=== PATIENT | female | born 1935 | race Caucasian/White ===

== ENCOUNTER 2017-09-16 12:04 | Inpatient (IN) | payer BC ==
[~2017-09-16] VITALS: Ht 165.1 cm; Wt 76.4 kg
--- NOTE | 2017-09-16 12:46 | PHYS DOC ---
Adult General Chief Complaint Chief Complaint: SHORTNESS OF BREATH HPI HPI Patient is a 82 year old F who presents with increased swelling and shortness of breath. Patient has not been to a friend doctor for quite some time and was at Dr. Torres's office today and sent over the emergency room for increase fluid on her lungs. Patient has significant lower extremity swelling with increased shortness of breath and altered breathing. Patient denies any fevers. Patient has not breath of cough. Patient denies any chest pain. Patient has no other complaints. Review of Systems Review of Systems GEN: Denies fevers, chills, sweats HEENT: Denies blurred vision, sore throat CV: Denies chest pain RESP: Shortness of breath GI: Denies n/v/d NEURO: Denies confusion, dizziness MSK: Leg swelling All other systems were reviewed and found to be within normal limits, except as documented in this note. Current Medications Current Medications Current Medications Medications (Trade) Dose Ordered Sig/Kerrie Start Time Stop Time Status Last Admin Dose Admin Furosemide (Lasix) 80 mg 1X ONCE 09/16/17 14:00 09/16/17 14:01 Allergies Allergies Allergies Coded Allergies Type Severity Reaction Last Updated Verified No Known Drug Allergies 09/16/17 No Physical Exam Physical Exam GEN.: mod distress. Alert and oriented. HEENT: Head is normocephalic, atraumatic NECK: Supple. LUNGS: Decreased breath sounds bilaterally, tachypnea. HEART: RRR, S1, S2 present. Peripheral pulses intact ABDOMEN: Soft, nontender. Positive bowel sounds. EXTREMITIES: Without any cyanosis, +2 pitting edema to lower extremity bilaterally NEUROLOGIC: Normal speech, normal tone PSYCHIATRIC: Normal affect, normal mood. SKIN: No ulcerations Current Patient Data Lab Values Laboratory Tests Test 09/16/17 12:50 09/16/17 13:24 Lactic Acid Level 2.8 mmol/L (0.4-2.0) H Troponin I Quantitative 0.038 ng/mL (0.000-0.055) XR-Cqv-A-Type Natriuretic Peptide 1756 pg/mL (0-449) H White Blood Count 14.5 x10^3/uL (4.0-11.0) H Red Blood Count 3.38 x10^6/uL (3.50-5.40) L Hemoglobin 7.4 g/dL (12.0-15.5) L Hematocrit 24.9 % (36.0-47.0) L Mean Corpuscular Volume 74 fL (79-100) L Mean Corpuscular Hemoglobin 22 pg (25-35) L Mean Corpuscular Hemoglobin Concent 30 g/dL (31-37) L Red Cell Distribution Width 17.5 % (11.5-14.5) H Platelet Count 315 x10^3/uL (140-400) Neutrophils (%) (Auto) 84 % (31-73) H Lymphocytes (%) (Auto) 8 % (24-48) L Monocytes (%) (Auto) 7 % (0-9) Eosinophils (%) (Auto) 1 % (0-3) Basophils (%) (Auto) 1 % (0-3) Neutrophils # (Auto) 12.1 x10^3uL (1.8-7.7) H Lymphocytes # (Auto) 1.2 x10^3/uL (1.0-4.8) Monocytes # (Auto) 1.0 x10^3/uL (0.0-1.1) Eosinophils # (Auto) 0.1 x10^3/uL (0.0-0.7) Basophils # (Auto) 0.1 x10^3/uL (0.0-0.2) Platelet Estimate Pending Sodium Level 142 mmol/L (136-145) Potassium Level 3.5 mmol/L (3.5-5.1) Chloride Level 104 mmol/L (98-107) Carbon Dioxide Level 28 mmol/L (21-32) Anion Gap 10 (6-14) Blood Urea Nitrogen 25 mg/dL (7-20) H Creatinine 1.3 mg/dL (0.6-1.0) H Estimated GFR (Cockcroft-Gault) 39.1 BUN/Creatinine Ratio 19 (6-20) Glucose Level 166 mg/dL (70-99) H Calcium Level 8.7 mg/dL (8.5-10.1) Total Bilirubin Pending Aspartate Amino Transferase (AST) Pending Alanine Aminotransferase (ALT) Pending Alkaline Phosphatase Pending Total Protein Pending Albumin Pending Albumin/Globulin Ratio Pending Lipase Pending Laboratory Tests 09/16/17 13:24 Laboratory Tests 09/16/17 13:24 EKG EKG 1224: EKG shows normal sinus rhythm rate of 85 no STEMI[] Radiology/Procedures Radiology/Procedures CXR: Impression: Findings most suggestive of CHF with right greater than left pleural effusions.[] Course & Med Decision Making Course & Med Decision Making Pertinent Labs and Imaging studies reviewed. (See chart for details) ED course: Patient was seen and examined emergency room cardiac workup was ordered along with a BNP Patient was updated on lab results and plan to admit for acute CHF exacerbation Pt was typed and screened with a hematoma 7.2 Patient was given 80 of Lasix IV 1350: Discussed CC/HP/PMH with Dr. Wihteside and recommends admit [] MDM: After reviewing the chart, CC/HPI/PMH, physical exam, [lab results], [ radiological results], I believe the patient has acute CHF exacerbation record admission to the hospital for IV Lasix. Patient has anemia with no active bleeding and does not need an emergent blood transfusion at this time. [] Dragon Disclaimer Dragon Disclaimer This electronic medical record was generated, in whole or in part, using a voice recognition dictation system. Departure Departure Impression: Primary Impression: CHF exacerbation Additional Impressions: Anemia Pleural effusion Disposition: ADMITTED INPATIENT Admitting Physician: Lynne Whiteside Condition: GUARDED Referrals: UNKNOWN PCP NAME (PCP) Problem Qualifiers TANI FLORES DO Sep 16, 2017 12:46
--- NOTE | 2017-09-16 13:03 | EKG ---
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 Electronically Signed On 09-16-2017 17:05:34 MAINTENANCE SUPERVISOR 2ND SHIFT by Al Thomson MD
--- NOTE | 2017-09-16 13:21 | RAD ---
Indication: Short of air. Technique: Upright portable chest radiograph was obtained and compared to a study from June 20, 2011. Findings: There is blunting of the costophrenic sulci, greater on the right. There is interstitial prominence and cephalization of the pulmonary vasculature. Heart is upper limits of normal in size. There is atheromatous disease in the thoracic aorta. Leads overlie the patient. Impression: Findings most suggestive of CHF with right greater than left pleural effusions.
[2017-09-16 13:31] LABS: BASO # 0.1 x10^3/uL (0.0-0.2); BASO % 1 % (0-3); EOS % 1 % (0-3); HEMATOCRIT 24.9 % (36.0-47.0); HEMOGLOBIN 7.4 g/dL (12.0-15.5); LYMPH # 1.2 x10^3/uL (1.0-4.8); LYMPH % 8 % (24-48); MEAN CORPUSCULAR HEMOGLOBIN 22 pg (25-35); MEAN CORPUSCULAR HGB CONC 30 g/dL (31-37); MEAN CORPUSCULAR VOLUME 74 fL (79-100); MONO % 7 % (0-9); NEUT % 84 % (31-73); PLATELET COUNT 315 x10^3/uL (140-400); RED BLOOD COUNT 3.38 x10^6/uL (3.50-5.40); RED CELL DISTRIBUTION WIDTH 17.5 % (11.5-14.5); WHITE BLOOD COUNT 14.5 x10^3/uL (4.0-11.0)
[2017-09-16 13:40] LABS: CALCIUM 8.7 mg/dL (8.5-10.1); CREATININE 1.3 mg/dL (0.6-1.0); GFR 39.1; POTASSIUM 3.5 mmol/L (3.5-5.1)
[2017-09-16 13:57] LABS: ALBUMIN 3.3 g/dL (3.4-5.0); ALBUMIN/GLOBULIN RATIO 0.8 (1.0-1.7); TOTAL BILIRUBIN 0.4 mg/dL (0.2-1.0); TOTAL PROTEIN 7.3 g/dL (6.4-8.2)
[2017-09-16] MEDS ORDERED: FUROSEMIDE 40 MG/4 ML VIAL. IVP ONE (14:00)
[2017-09-16] MEDS ORDERED: ACETAMINOPHEN 325 MG TABLET. PO PRN (14:00)
[2017-09-16] MEDS ORDERED: ONDANSETRON PF 4 MG/2 ML VIAL. IV PRN (14:00)
[2017-09-16] MEDS ORDERED: NITROGLYCERIN SUBLINGUAL 0.4 MG BOTTLE OF 25. SL PRN (14:00)
[2017-09-16] MEDS ORDERED: fentaNYL PF VIAL 100 MCG/2 ML VIAL IV PRN (14:00)
[2017-09-16 14:10] LABS: BILIRUBIN,URINE NEGATIVE (NEG); GLUCOSE,URINE NEGATIVE (NEG); NITRITE,URINE POSITIVE (NEG); PROTEIN,URINE NEGATIVE (NEG-TRACE); UROBILINOGEN,URINE 0.2 mg/dL (0.2 mg/dL)
[2017-09-16] MEDS ORDERED: diphenhydrAMINE HCL 25 MG CAPSULE PO PRN (14:15)
[2017-09-16 14:18] LABS: % SAT IRON 3 % (15-34); IRON,SERUM 17 ug/dL (50-170)
--- NOTE | 2017-09-16 14:25 | PDOC1 ---
History and Physical Date of Admission Date of Admission DATE: 09/16/17 TIME: 14:17 Identification/Chief Complaint Chief Complaint Shortness of breath, leg swelling Problems: Source Source: Caregiver, Chart review, Patient History of Present Illness History of Present Illness Very pleasant 82-year-old female, who lives at home with , ambulates with assistive device? When necessary, sent by PCP Dr. Torres's office for increasing shortness of breath and leg swelling. Patient has been here in [facility] for many years in the past. No recent records I could identify. Leg swelling is +2-3 pitting edema bilateral , not on any diuretic at home. No known history of CAD CHF. Only takes hypertensive medications and dyslipidemia medications. at bedside is able to provide most of the names of these including Coreg Risperdal losartan and a statin. No known thyroid problems. Patient is a nonsmoker nondrinker. No chest pain she has been fighting shortness of breath and leg swelling for the past month or so. Chest x-ray shows bilateral pleural effusion and congestive heart failure changes. She denies any PND orthopnea may be a poor historian? She has bilateral pitting edema. BNP is 1750+ lactate 2.8 she is coughing some minimal phlegm no fevers at home. WBC 14.5. It is hard to appreciate infiltrates on a very congestive film. Hemoglobin is 7 with a hematocrit of 74. No reports of melena or hematochezia to me. I'm unsure if she had a C scope done as outpatient. She is already 81. Usually colonoscopy routinely stops at age 84. We 'll check a stool occult. Past Medical History Cardiovascular: HTN, Hyperlipidemia Past Surgical History Past Surgical History: No pertinent history Family History Family History: High Cholestrol, Hypertension Social History Smoke: No ALCOHOL: none Drugs: None Current Problem List Problem List Problems Medical Problems: (1) Anemia Status: Acute (2) CHF exacerbation Status: Acute (3) Pleural effusion Status: Acute Problems: Current Medications Current Medications Current Medications Furosemide (Lasix) 80 mg 1X ONCE IVP Last administered on 09/16/17t 14:06; Start 09/16/17 at 14:00; Stop 09/16/17 at 14:01; Status DC Ondansetron HCl (Zofran) 4 mg PRN Q8HRS PRN IV NAUSEA/VOMITING; Start at 14:00; Stop 09/17/17 at 13:59 Fentanyl Citrate (Fentanyl 2ml Vial) 50 mcg PRN Q2HR PRN IV PAIN; Start at 14:00; Stop 09/17/17 at 13:59 Acetaminophen (Tylenol) 650 mg PRN Q4HRS PRN PO FEVER; Start 09/16/17 at 14:00 ; Stop 09/17/17 at 13:59 Nitroglycerin (Nitrostat) 0.4 mg PRN Q5MIN PRN SL CHEST PAIN; Start 09/16/17 at 14:00; Stop 09/17/17 at 13:59 Diphenhydramine HCl (Benadryl) 25 mg PRN QHS PRN PO INSOMNIA; Start 09/16/17 at 14:15 Allergies Allergies: Coded Allergies: No Known Drug Allergies (Unverified , 09/16/17) ROS Review of System Positive for her shortness of breath, leg edema no chest pain A 14 point ROS was completed with the following noted as positive: Other systems reviewed and negative. \CONSTITUTIONAL: No fever or chills EYES: No recent changes SKIN: No rash or itching CARDIOVASCULAR: No chest pain, syncope, palpitations, or edema RESPIRATORY: No SOB or cough GASTROINTESTINAL: No nausea, vomiting or abdominal pain NEUROLOGICAL: No headaches or weakness ENDOCRINE: No cold or heat intolerance GENITOURINARY: No urgency or frequency of urination MUSCULOSKELETAL: No back pain or joint pain LYMPHATICS: No enlarged lymph nodes PSYCHIATRIC: No anxiety or depression Physical Exam Physical Exam Physical Exam General: Alert, Oriented X3, Cooperative, RRR 30 HEENT: Atraumatic, PERRLA Lungs: Normal air movement, Other (wheezy) Heart: S1S2, RRR, no thrills, no gallops, no murmurs Cardiovascular: S1, S2 Abdomen: Normal bowel sounds, Soft, No tenderness, No hepatosplenomegaly, No masses, Other (obese) Rectal Exam: not examined PELVIC: Nml ext genitalia Extremities: No rashes, +3 pitting edema some chronic lichenification, postinflammatory hyperpigmentation, some dressing bilateral lower one third of bilateral legs, pulses full and equal Skin: No rashes, No breakdown, No significant lesion Neuro: Normal gait, Normal speech, Strength at 5/5 X4 ext, Normal tone, Sensation intact, Cranial nerves 3-12 NL, Reflexes 2+ Psych/Mental Status: Mental status NL, Mood NL Vitals Vitals Vital Signs Date Time Temp Pulse Resp B/P (MAP) Pulse Ox O2 Delivery O2 Flow Rate FiO2 09/16/17 14:13 84 28 175/76 (109) 93 Room Air 09/16/17 12:28 99.0 99.0 Labs Labs Laboratory Tests Test 09/16/17 12:50 09/16/17 13:24 Lactic Acid Level 2.8 mmol/L (0.4-2.0) Troponin I Quantitative 0.038 ng/mL (0.000-0.055) XD-Jtn-I-Type Natriuretic Peptide 1756 pg/mL (0-449) White Blood Count 14.5 x10^3/uL (4.0-11.0) Red Blood Count 3.38 x10^6/uL (3.50-5.40) Hemoglobin 7.4 g/dL (12.0-15.5) Hematocrit 24.9 % (36.0-47.0) Mean Corpuscular Volume 74 fL (79-100) Mean Corpuscular Hemoglobin 22 pg (25-35) Mean Corpuscular Hemoglobin Concent 30 g/dL (31-37) Red Cell Distribution Width 17.5 % (11.5-14.5) Platelet Count 315 x10^3/uL (140-400) Neutrophils (%) (Auto) 84 % (31-73) Lymphocytes (%) (Auto) 8 % (24-48) Monocytes (%) (Auto) 7 % (0-9) Eosinophils (%) (Auto) 1 % (0-3) Basophils (%) (Auto) 1 % (0-3) Neutrophils # (Auto) 12.1 x10^3uL (1.8-7.7) Lymphocytes # (Auto) 1.2 x10^3/uL (1.0-4.8) Monocytes # (Auto) 1.0 x10^3/uL (0.0-1.1) Eosinophils # (Auto) 0.1 x10^3/uL (0.0-0.7) Basophils # (Auto) 0.1 x10^3/uL (0.0-0.2) Reticulocyte Count (auto) 3.2 % (0.5-2.5) Sodium Level 142 mmol/L (136-145) Potassium Level 3.5 mmol/L (3.5-5.1) Chloride Level 104 mmol/L (98-107) Carbon Dioxide Level 28 mmol/L (21-32) Anion Gap 10 (6-14) Blood Urea Nitrogen 25 mg/dL (7-20) Creatinine 1.3 mg/dL (0.6-1.0) Estimated GFR (Cockcroft-Gault) 39.1 BUN/Creatinine Ratio 19 (6-20) Glucose Level 166 mg/dL (70-99) Calcium Level 8.7 mg/dL (8.5-10.1) Total Bilirubin 0.4 mg/dL (0.2-1.0) Aspartate Amino Transf (AST/SGOT) 21 U/L (15-37) Alanine Aminotransferase (ALT/SGPT) 39 U/L (14-59) Alkaline Phosphatase 124 U/L (46-116) Total Protein 7.3 g/dL (6.4-8.2) Albumin 3.3 g/dL (3.4-5.0) Albumin/Globulin Ratio 0.8 (1.0-1.7) Lipase 158 U/L (73-393) Laboratory Tests Test 09/16/17 12:50 09/16/17 13:24 Lactic Acid Level 2.8 mmol/L (0.4-2.0) Troponin I Quantitative 0.038 ng/mL (0.000-0.055) XB-Snt-O-Type Natriuretic Peptide 1756 pg/mL (0-449) White Blood Count 14.5 x10^3/uL (4.0-11.0) Red Blood Count 3.38 x10^6/uL (3.50-5.40) Hemoglobin 7.4 g/dL (12.0-15.5) Hematocrit 24.9 % (36.0-47.0) Mean Corpuscular Volume 74 fL (79-100) Mean Corpuscular Hemoglobin 22 pg (25-35) Mean Corpuscular Hemoglobin Concent 30 g/dL (31-37) Red Cell Distribution Width 17.5 % (11.5-14.5) Platelet Count 315 x10^3/uL (140-400) Neutrophils (%) (Auto) 84 % (31-73) Lymphocytes (%) (Auto) 8 % (24-48) Monocytes (%) (Auto) 7 % (0-9) Eosinophils (%) (Auto) 1 % (0-3) Basophils (%) (Auto) 1 % (0-3) Neutrophils # (Auto) 12.1 x10^3uL (1.8-7.7) Lymphocytes # (Auto) 1.2 x10^3/uL (1.0-4.8) Monocytes # (Auto) 1.0 x10^3/uL (0.0-1.1) Eosinophils # (Auto) 0.1 x10^3/uL (0.0-0.7) Basophils # (Auto) 0.1 x10^3/uL (0.0-0.2) Reticulocyte Count (auto) 3.2 % (0.5-2.5) Sodium Level 142 mmol/L (136-145) Potassium Level 3.5 mmol/L (3.5-5.1) Chloride Level 104 mmol/L (98-107) Carbon Dioxide Level 28 mmol/L (21-32) Anion Gap 10 (6-14) Blood Urea Nitrogen 25 mg/dL (7-20) Creatinine 1.3 mg/dL (0.6-1.0) Estimated GFR (Cockcroft-Gault) 39.1 BUN/Creatinine Ratio 19 (6-20) Glucose Level 166 mg/dL (70-99) Calcium Level 8.7 mg/dL (8.5-10.1) Total Bilirubin 0.4 mg/dL (0.2-1.0) Aspartate Amino Transf (AST/SGOT) 21 U/L (15-37) Alanine Aminotransferase (ALT/SGPT) 39 U/L (14-59) Alkaline Phosphatase 124 U/L (46-116) Total Protein 7.3 g/dL (6.4-8.2) Albumin 3.3 g/dL (3.4-5.0) Albumin/Globulin Ratio 0.8 (1.0-1.7) Lipase 158 U/L (73-393) VTE Prophylaxis Ordered VTE Prophylaxis Devices: Yes VTE Pharmacological Prophylaxi: Yes Assessment/Plan Assessment/Plan New-onset CHF Bilateral pitting edema, lymphedema Hypertension Hypertensive urgency present on admission Respiratory failure secondary to CHF Dyslipidemia on a statin AK I on CKD possibly stage III to 4 Microcytic anemia Plan: admit 2 midnights Lasix 80 mg IV push 1 at the emergency room already given. Check UA. Need to monitor monitor creatinine creatinine is 1.4 GFR in the 30s Check TSH PT OT Lymphedema consult Neck stool occult, iron panel since these are microcytic indices; if stool occult positive will involve GI; MIght Need interval chest x-ray about 2 days' time Continue statin and other home medications Awaiting home meds to reconcile Further recommendations pending above Control blood pressure, IVP when necessary if needed PIPO HENSON MD Sep 16, 2017 14:25
[2017-09-16 14:26] LABS: BACTERIA,URINE MANY /HPF (0-FEW); RBC,URINE 0 /HPF (0-2); SQUAMOUS EPITHELIAL CELL,UR OCC /LPF
[2017-09-16 14:43] VITALS: BP 159/68
--- NOTE | 2017-09-16 15:26 | RAD ---
Renal ultrasound, 09/16/2017: History: Acute renal failure The right kidney measures 10.2 cm in length while the left kidney measures 10.0 cm. There is no evidence of hydronephrosis or a renal mass. The renal parenchymal echogenicity is within normal limits. No abnormal perinephric process is seen. Limited views of the partially filled urinary bladder show no abnormality. IMPRESSION: No significant renal abnormality is detected.
[2017-09-16 16:40] LABS: ANISOCYTOSIS MOD; PLT ESTIMATE ADEQUATE (ADEQUATE); POLYCHROMASIA SLIGHT
[2017-09-16 16:41] LABS: HYPOCHROMIA MOD; MICROCYTOSIS MOD; TOXIC GRANULATION SLIGHT
[2017-09-16] MEDS ORDERED: PRAV20TA2 PO (16:51)
[2017-09-16] MEDS ORDERED: CHOL4POW2 PO (16:51)
[2017-09-16] MEDS ORDERED: DONE10TA7 PO (16:51)
[2017-09-16] MEDS ORDERED: RISP0.5T3 PO (16:51)
[2017-09-16] MEDS ORDERED: AMLO2.5T PO (16:51)
[2017-09-16] MEDS ORDERED: LOSA1TAB22 PO (16:51)
[2017-09-16] MEDS ORDERED: CARV12.52 PO (16:51)
--- NOTE | 2017-09-16 17:22 | PDOC ---
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 She also notes that her legs have been more swollen the last few days, despite taking her regular medications. She denies any recent fever, chills, nausea, vomiting, chest pain, back pain, discharge/pain/blood in her urine, any recent stool changes, or any abdominal pain. At baseline she reports that she is able to perform ADL's without significant limitations. Per review with her pharmacy, she has not filled any prescriptions for the last 1 year. PMH: -CHF, per report from patient. - HTN - multiple UTIs PSH: -right knee replacement -angie All: -NKDA Meds: -Unknown. FMH: -sister DM -Father in his 80s, unknown medical hx -Mother HTN, in her 80s SH: -Non-smoker -Alcohol every once in a while -No recreational drug use Objective PE: Vitals: P: 87, BP: 159/68, RR: 20, O2: 93 Gen: resting comfortably in hospital bed, no acute distress HEENT: moist mucus membranes, no LAD, no scleral icterus or conjunctival injection/pallor Heart: regular rhythm with a rate of 87, 2/6 systolic ejection murmur heard best in 2nd ICS RSB and 4th ICS LLSB. No rubs or gallops. No carotid bruits Lungs: diminished air movement with mild end-expiratory wheezes in lung bases Extremities/Skin: +2/4 dp and radial pulses b/l. 3+ pedal and pretibial edema extending up just distal to b/l knees. Erythema anterior legs with stage 2 ulcers present b/l with some tenderness to light palpation. Neuro: CN II-XII grossly intact, nml strength/sensation. EOMs intact DIAGNOSTIC STUDIES; CXR: bilateral edema with r > l, cannot rule out fluid in fissure versus infiltrate. EKG: SR with prior anteroseptal infarct. Labs reviewed, notable for cr of 1.3 and hgb 7.4 Trop negative. Assessment: 1. Acute on chronic HF with diastolic dysfunction, likely due to multiple medical problems as noted. 2. CKD stage 3B 3. Anemia, likely iron deficiency due to occult blood loss, cannot rule out underlying malignancy. 4. UTI 5. HTN 6. Venous insufficiency with open ulcers with erythema. Plan: 1. Patient was given 80 mg furosemide IV in ER, will give another dose of 80 mg furosemide for overnight, monitor I/O's. Will place henry for accurate assessment. 2. Monitor Cr for CKD and continue to treat for HTN (Will use IV hydralazine overnight until her renal function is reassessed in a.m.) 3. Monitor for worsening anemia, consider GI consult 4. UTI per PCP JOHNATHAN CHANDLER MD Sep 16, 2017 17:22
[2017-09-16] MEDS ORDERED: ASPI325T8 PO (17:27)
[2017-09-16] MEDS ORDERED: DIAZ5TAB4 PO (17:27)
[2017-09-16] MEDS ORDERED: hydrALAZINE 20 MG/ML VIAL. IVP PRN (17:30)
[2017-09-16] MEDS: CHOLESTYRAMINE/ASPARTAME 4 GM PACKET PO SCH (17:30)
[2017-09-16] MEDS: risperiDONE 0.25 MG TABLET. PO SCH (17:30)
[2017-09-16] MEDS ORDERED: guaiFENesin DM 200MG/20MG 10 ML SYRUP PO PRN (19:15)
[2017-09-16] MEDS ORDERED: ALBUTEROL SULFATE 2.5 MG/3 ML NEBU. NEB PRN (19:15)
[2017-09-16 19:35] VITALS: BP 155/58
[2017-09-16] MEDS: ATORVASTATIN CALCIUM 10 MG TABLET. PO SCH (20:45)
[2017-09-16] MEDS ORDERED: AMOXICILLIN/K CLAV 875/125MG TABLET. PO SCH (21:00)
[2017-09-16 23:05] VITALS: BP 133/55
[2017-09-17] VITALS (11 sets, daily range): BP systolic 122–159; BP diastolic 44–67
[2017-09-17 02:36] LABS: BASO # 0.1 x10^3/uL (0.0-0.2); BASO % 0 % (0-3); EOS % 1 % (0-3); HEMATOCRIT 22.3 % (36.0-47.0); LYMPH # 1.2 x10^3/uL (1.0-4.8); LYMPH % 9 % (24-48); MEAN CORPUSCULAR HEMOGLOBIN 22 pg (25-35); MEAN CORPUSCULAR HGB CONC 30 g/dL (31-37); MEAN CORPUSCULAR VOLUME 72 fL (79-100); MONO % 9 % (0-9); NEUT % 81 % (31-73); PLATELET COUNT 292 x10^3/uL (140-400); RED CELL DISTRIBUTION WIDTH 18.1 % (11.5-14.5); WHITE BLOOD COUNT 13.1 x10^3/uL (4.0-11.0)
[2017-09-17 02:37] LABS: HEMOGLOBIN 6.7 g/dL (12.0-15.5)
[2017-09-17 02:52] LABS: ALBUMIN 2.9 g/dL (3.4-5.0); ALBUMIN/GLOBULIN RATIO 0.8 (1.0-1.7); CREATININE 1.2 mg/dL (0.6-1.0); GFR 42.9; POTASSIUM 3.2 mmol/L (3.5-5.1); TOTAL BILIRUBIN 0.5 mg/dL (0.2-1.0); TOTAL PROTEIN 6.7 g/dL (6.4-8.2)
[2017-09-17 05:05] LABS: % SAT IRON 2 % (15-34); IRON,SERUM 11 ug/dL (50-170)
[2017-09-17 06:07] LABS: HEMATOCRIT 22.5 % (36.0-47.0); HEMOGLOBIN 7.3 g/dL (12.0-15.5)
--- NOTE | 2017-09-17 08:59 | PDOC ---
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 Microcytic anemia, PEDRITO Sepsis POA Deconditioning GEn weakness Frailty FUll code HIgh fall risk History of Present Illness History of Present Illness lactate still elevated hgb 6.7 IRon studies, compatible with PEDRITO Got 1 upRBC, rpt hgb pending SOme skin breakdown intertriginous areas Leg wounds bialteral lower shins Good UO, on lasix 40 IV K 3,2 today PLAn: KCL 40 x 1 now then daily WOund care Coughing , lebg wounds - augmentin started COnt nebx prn and cough med START FERROUS sulfate qD FOBT GEt gI Dw and RN at bedside WIll need SNU screen HH tmr Vitals Vitals Vital Signs Date Time Temp Pulse Resp B/P (MAP) Pulse Ox O2 Delivery O2 Flow Rate FiO2 09/17/17 08:38 94 Nasal Cannula 2.0 09/17/17 07:55 99.5 87 24 146/59 99.5 Physical Exam General: Alert, Oriented X3, Cooperative Heart: Normal S1, Normal S2, Other (dec BS) Lungs: Crackles Extremities: Other (pitting edema plus 3, leg wounds superficial) Skin: Other (bilateral lower extremity wounds) Labs LABS Laboratory Tests Test 09/16/17 12:50 09/16/17 13:24 09/16/17 14:00 09/16/17 19:10 Lactic Acid Level 2.8 mmol/L (0.4-2.0) 2.6 mmol/L (0.4-2.0) Troponin I Quantitative 0.038 ng/mL (0.000-0.055) OK-Wfk-V-Type Natriuretic Peptide 1756 pg/mL (0-449) White Blood Count 14.5 x10^3/uL (4.0-11.0) Red Blood Count 3.38 x10^6/uL (3.50-5.40) Hemoglobin 7.4 g/dL (12.0-15.5) Hematocrit 24.9 % (36.0-47.0) Mean Corpuscular Volume 74 fL (79-100) Mean Corpuscular Hemoglobin 22 pg (25-35) Mean Corpuscular Hemoglobin Concent 30 g/dL (31-37) Red Cell Distribution Width 17.5 % (11.5-14.5) Platelet Count 315 x10^3/uL (140-400) Neutrophils (%) (Auto) 84 % (31-73) Lymphocytes (%) (Auto) 8 % (24-48) Monocytes (%) (Auto) 7 % (0-9) Eosinophils (%) (Auto) 1 % (0-3) Basophils (%) (Auto) 1 % (0-3) Neutrophils # (Auto) 12.1 x10^3uL (1.8-7.7) Lymphocytes # (Auto) 1.2 x10^3/uL (1.0-4.8) Monocytes # (Auto) 1.0 x10^3/uL (0.0-1.1) Eosinophils # (Auto) 0.1 x10^3/uL (0.0-0.7) Basophils # (Auto) 0.1 x10^3/uL (0.0-0.2) Toxic Granulation Slight Platelet Estimate Adequate (ADEQUATE) Polychromasia Slight Hypochromasia Mod Anisocytosis Mod Microcytosis Mod Reticulocyte Count (auto) 3.2 % (0.5-2.5) Sodium Level 142 mmol/L (136-145) Potassium Level 3.5 mmol/L (3.5-5.1) Chloride Level 104 mmol/L (98-107) Carbon Dioxide Level 28 mmol/L (21-32) Anion Gap 10 (6-14) Blood Urea Nitrogen 25 mg/dL (7-20) Creatinine 1.3 mg/dL (0.6-1.0) Estimated GFR (Cockcroft-Gault) 39.1 BUN/Creatinine Ratio 19 (6-20) Glucose Level 166 mg/dL (70-99) Calcium Level 8.7 mg/dL (8.5-10.1) Iron Level 17 ug/dL (50-170) Total Iron Binding Capacity 531 ug/dL (250-450) Iron Saturation 3 % (15-34) Total Bilirubin 0.4 mg/dL (0.2-1.0) Aspartate Amino Transf (AST/SGOT) 21 U/L (15-37) Alanine Aminotransferase (ALT/SGPT) 39 U/L (14-59) Alkaline Phosphatase 124 U/L (46-116) Total Protein 7.3 g/dL (6.4-8.2) Albumin 3.3 g/dL (3.4-5.0) Albumin/Globulin Ratio 0.8 (1.0-1.7) Lipase 158 U/L (73-393) Thyroid Stimulating Hormone (TSH) 1.663 uIU/mL (0.358-3.74) Urine Color Yellow Urine Clarity Clear Urine pH 6.0 Urine Specific [place] 1.020 Urine Protein Negative mg/dL (NEG-TRACE) Urine Glucose (UA) Negative mg/dL (NEG) Urine Ketones (Stick) Negative mg/dL (NEG) Urine Blood Negative (NEG) Urine Nitrite Positive (NEG) Urine Bilirubin Negative (NEG) Urine Urobilinogen Dipstick 0.2 mg/dL (0.2 mg/dL) Urine Leukocyte Esterase Moderate (NEG) Urine RBC 0 /HPF (0-2) Urine WBC 11-20 /HPF (0-4) Urine Squamous Epithelial Cells Occ /LPF Urine Bacteria Many /HPF (0-FEW) Urine Mucus Slight /LPF Test 09/17/17 02:08 09/17/17 05:30 White Blood Count 13.1 x10^3/uL (4.0-11.0) Red Blood Count 3.10 x10^6/uL (3.50-5.40) Hemoglobin 6.7 g/dL (12.0-15.5) 7.3 g/dL (12.0-15.5) Hematocrit 22.3 % (36.0-47.0) 22.5 % (36.0-47.0) Mean Corpuscular Volume 72 fL (79-100) Mean Corpuscular Hemoglobin 22 pg (25-35) Mean Corpuscular Hemoglobin Concent 30 g/dL (31-37) 32 g/dL (31-37) Red Cell Distribution Width 18.1 % (11.5-14.5) Platelet Count 292 x10^3/uL (140-400) Neutrophils (%) (Auto) 81 % (31-73) Lymphocytes (%) (Auto) 9 % (24-48) Monocytes (%) (Auto) 9 % (0-9) Eosinophils (%) (Auto) 1 % (0-3) Basophils (%) (Auto) 0 % (0-3) Neutrophils # (Auto) 10.6 x10^3uL (1.8-7.7) Lymphocytes # (Auto) 1.2 x10^3/uL (1.0-4.8) Monocytes # (Auto) 1.1 x10^3/uL (0.0-1.1) Eosinophils # (Auto) 0.1 x10^3/uL (0.0-0.7) Basophils # (Auto) 0.1 x10^3/uL (0.0-0.2) Sodium Level 145 mmol/L (136-145) Potassium Level 3.2 mmol/L (3.5-5.1) Chloride Level 105 mmol/L (98-107) Carbon Dioxide Level 30 mmol/L (21-32) Anion Gap 10 (6-14) Blood Urea Nitrogen 26 mg/dL (7-20) Creatinine 1.2 mg/dL (0.6-1.0) Estimated GFR (Cockcroft-Gault) 42.9 BUN/Creatinine Ratio 22 (6-20) Glucose Level 127 mg/dL (70-99) Calcium Level 8.0 mg/dL (8.5-10.1) Iron Level 11 ug/dL (50-170) Total Iron Binding Capacity 479 ug/dL (250-450) Iron Saturation 2 % (15-34) Total Bilirubin 0.5 mg/dL (0.2-1.0) Aspartate Amino Transf (AST/SGOT) 16 U/L (15-37) Alanine Aminotransferase (ALT/SGPT) 30 U/L (14-59) Alkaline Phosphatase 102 U/L (46-116) Troponin I Quantitative 0.081 ng/mL (0.000-0.055) Total Protein 6.7 g/dL (6.4-8.2) Albumin 2.9 g/dL (3.4-5.0) Albumin/Globulin Ratio 0.8 (1.0-1.7) Review of Systems Review of Systems For shortness of breath, generalized weakness A 14 point ROS was completed with the following noted as positive: Other systems reviewed and negative. \CONSTITUTIONAL: No fever or chills EYES: No recent changes SKIN: No rash or itching CARDIOVASCULAR: No chest pain, syncope, palpitations, or edema RESPIRATORY: No SOB or cough GASTROINTESTINAL: No nausea, vomiting or abdominal pain NEUROLOGICAL: No headaches or weakness ENDOCRINE: No cold or heat intolerance GENITOURINARY: No urgency or frequency of urination MUSCULOSKELETAL: No back pain or joint pain LYMPHATICS: No enlarged lymph nodes PSYCHIATRIC: No anxiety or depression Assessment and Plan Assessmemt and Plan Problems Medical Problems: (1) Anemia Status: Acute (2) CHF exacerbation Status: Acute (3) Pleural effusion Status: Acute Problems: Comment Review of Relevant I have reviewed the following items quintin (where applicable) has been applied. Labs Laboratory Tests Test 09/16/17 12:50 09/16/17 13:24 09/16/17 14:00 09/16/17 19:10 Lactic Acid Level 2.8 mmol/L (0.4-2.0) 2.6 mmol/L (0.4-2.0) Troponin I Quantitative 0.038 ng/mL (0.000-0.055) HR-Drd-F-Type Natriuretic Peptide 1756 pg/mL (0-449) White Blood Count 14.5 x10^3/uL (4.0-11.0) Red Blood Count 3.38 x10^6/uL (3.50-5.40) Hemoglobin 7.4 g/dL (12.0-15.5) Hematocrit 24.9 % (36.0-47.0) Mean Corpuscular Volume 74 fL (79-100) Mean Corpuscular Hemoglobin 22 pg (25-35) Mean Corpuscular Hemoglobin Concent 30 g/dL (31-37) Red Cell Distribution Width 17.5 % (11.5-14.5) Platelet Count 315 x10^3/uL (140-400) Neutrophils (%) (Auto) 84 % (31-73) Lymphocytes (%) (Auto) 8 % (24-48) Monocytes (%) (Auto) 7 % (0-9) Eosinophils (%) (Auto) 1 % (0-3) Basophils (%) (Auto) 1 % (0-3) Neutrophils # (Auto) 12.1 x10^3uL (1.8-7.7) Lymphocytes # (Auto) 1.2 x10^3/uL (1.0-4.8) Monocytes # (Auto) 1.0 x10^3/uL (0.0-1.1) Eosinophils # (Auto) 0.1 x10^3/uL (0.0-0.7) Basophils # (Auto) 0.1 x10^3/uL (0.0-0.2) Toxic Granulation Slight Platelet Estimate Adequate (ADEQUATE) Polychromasia Slight Hypochromasia Mod Anisocytosis Mod Microcytosis Mod Reticulocyte Count (auto) 3.2 % (0.5-2.5) Sodium Level 142 mmol/L (136-145) Potassium Level 3.5 mmol/L (3.5-5.1) Chloride Level 104 mmol/L (98-107) Carbon Dioxide Level 28 mmol/L (21-32) Anion Gap 10 (6-14) Blood Urea Nitrogen 25 mg/dL (7-20) Creatinine 1.3 mg/dL (0.6-1.0) Estimated GFR (Cockcroft-Gault) 39.1 BUN/Creatinine Ratio 19 (6-20) Glucose Level 166 mg/dL (70-99) Calcium Level 8.7 mg/dL (8.5-10.1) Iron Level 17 ug/dL (50-170) Total Iron Binding Capacity 531 ug/dL (250-450) Iron Saturation 3 % (15-34) Total Bilirubin 0.4 mg/dL (0.2-1.0) Aspartate Amino Transf (AST/SGOT) 21 U/L (15-37) Alanine Aminotransferase (ALT/SGPT) 39 U/L (14-59) Alkaline Phosphatase 124 U/L (46-116) Total Protein 7.3 g/dL (6.4-8.2) Albumin 3.3 g/dL (3.4-5.0) Albumin/Globulin Ratio 0.8 (1.0-1.7) Lipase 158 U/L (73-393) Thyroid Stimulating Hormone (TSH) 1.663 uIU/mL (0.358-3.74) Urine Color Yellow Urine Clarity Clear Urine pH 6.0 Urine Specific [place] 1.020 Urine Protein Negative mg/dL (NEG-TRACE) Urine Glucose (UA) Negative mg/dL (NEG) Urine Ketones (Stick) Negative mg/dL (NEG) Urine Blood Negative (NEG) Urine Nitrite Positive (NEG) Urine Bilirubin Negative (NEG) Urine Urobilinogen Dipstick 0.2 mg/dL (0.2 mg/dL) Urine Leukocyte Esterase Moderate (NEG) Urine RBC 0 /HPF (0-2) Urine WBC 11-20 /HPF (0-4) Urine Squamous Epithelial Cells Occ /LPF Urine Bacteria Many /HPF (0-FEW) Urine Mucus Slight /LPF Test 09/17/17 02:08 09/17/17 05:30 White Blood Count 13.1 x10^3/uL (4.0-11.0) Red Blood Count 3.10 x10^6/uL (3.50-5.40) Hemoglobin 6.7 g/dL (12.0-15.5) 7.3 g/dL (12.0-15.5) Hematocrit 22.3 % (36.0-47.0) 22.5 % (36.0-47.0) Mean Corpuscular Volume 72 fL (79-100) Mean Corpuscular Hemoglobin 22 pg (25-35) Mean Corpuscular Hemoglobin Concent 30 g/dL (31-37) 32 g/dL (31-37) Red Cell Distribution Width 18.1 % (11.5-14.5) Platelet Count 292 x10^3/uL (140-400) Neutrophils (%) (Auto) 81 % (31-73) Lymphocytes (%) (Auto) 9 % (24-48) Monocytes (%) (Auto) 9 % (0-9) Eosinophils (%) (Auto) 1 % (0-3) Basophils (%) (Auto) 0 % (0-3) Neutrophils # (Auto) 10.6 x10^3uL (1.8-7.7) Lymphocytes # (Auto) 1.2 x10^3/uL (1.0-4.8) Monocytes # (Auto) 1.1 x10^3/uL (0.0-1.1) Eosinophils # (Auto) 0.1 x10^3/uL (0.0-0.7) Basophils # (Auto) 0.1 x10^3/uL (0.0-0.2) Sodium Level 145 mmol/L (136-145) Potassium Level 3.2 mmol/L (3.5-5.1) Chloride Level 105 mmol/L (98-107) Carbon Dioxide Level 30 mmol/L (21-32) Anion Gap 10 (6-14) Blood Urea Nitrogen 26 mg/dL (7-20) Creatinine 1.2 mg/dL (0.6-1.0) Estimated GFR (Cockcroft-Gault) 42.9 BUN/Creatinine Ratio 22 (6-20) Glucose Level 127 mg/dL (70-99) Calcium Level 8.0 mg/dL (8.5-10.1) Iron Level 11 ug/dL (50-170) Total Iron Binding Capacity 479 ug/dL (250-450) Iron Saturation 2 % (15-34) Total Bilirubin 0.5 mg/dL (0.2-1.0) Aspartate Amino Transf (AST/SGOT) 16 U/L (15-37) Alanine Aminotransferase (ALT/SGPT) 30 U/L (14-59) Alkaline Phosphatase 102 U/L (46-116) Troponin I Quantitative 0.081 ng/mL (0.000-0.055) Total Protein 6.7 g/dL (6.4-8.2) Albumin 2.9 g/dL (3.4-5.0) Albumin/Globulin Ratio 0.8 (1.0-1.7) Laboratory Tests Test 09/16/17 12:50 09/16/17 13:24 09/16/17 14:00 09/16/17 19:10 Lactic Acid Level 2.8 mmol/L (0.4-2.0) 2.6 mmol/L (0.4-2.0) Troponin I Quantitative 0.038 ng/mL (0.000-0.055) QJ-Qpc-R-Type Natriuretic Peptide 1756 pg/mL (0-449) White Blood Count 14.5 x10^3/uL (4.0-11.0) Red Blood Count 3.38 x10^6/uL (3.50-5.40) Hemoglobin 7.4 g/dL (12.0-15.5) Hematocrit 24.9 % (36.0-47.0) Mean Corpuscular Volume 74 fL (79-100) Mean Corpuscular Hemoglobin 22 pg (25-35) Mean Corpuscular Hemoglobin Concent 30 g/dL (31-37) Red Cell Distribution Width 17.5 % (11.5-14.5) Platelet Count 315 x10^3/uL (140-400) Neutrophils (%) (Auto) 84 % (31-73) Lymphocytes (%) (Auto) 8 % (24-48) Monocytes (%) (Auto) 7 % (0-9) Eosinophils (%) (Auto) 1 % (0-3) Basophils (%) (Auto) 1 % (0-3) Neutrophils # (Auto) 12.1 x10^3uL (1.8-7.7) Lymphocytes # (Auto) 1.2 x10^3/uL (1.0-4.8) Monocytes # (Auto) 1.0 x10^3/uL (0.0-1.1) Eosinophils # (Auto) 0.1 x10^3/uL (0.0-0.7) Basophils # (Auto) 0.1 x10^3/uL (0.0-0.2) Toxic Granulation Slight Platelet Estimate Adequate (ADEQUATE) Polychromasia Slight Hypochromasia Mod Anisocytosis Mod Microcytosis Mod Reticulocyte Count (auto) 3.2 % (0.5-2.5) Sodium Level 142 mmol/L (136-145) Potassium Level 3.5 mmol/L (3.5-5.1) Chloride Level 104 mmol/L (98-107) Carbon Dioxide Level 28 mmol/L (21-32) Anion Gap 10 (6-14) Blood Urea Nitrogen 25 mg/dL (7-20) Creatinine 1.3 mg/dL (0.6-1.0) Estimated GFR (Cockcroft-Gault) 39.1 BUN/Creatinine Ratio 19 (6-20) Glucose Level 166 mg/dL (70-99) Calcium Level 8.7 mg/dL (8.5-10.1) Iron Level 17 ug/dL (50-170) Total Iron Binding Capacity 531 ug/dL (250-450) Iron Saturation 3 % (15-34) Total Bilirubin 0.4 mg/dL (0.2-1.0) Aspartate Amino Transf (AST/SGOT) 21 U/L (15-37) Alanine Aminotransferase (ALT/SGPT) 39 U/L (14-59) Alkaline Phosphatase 124 U/L (46-116) Total Protein 7.3 g/dL (6.4-8.2) Albumin 3.3 g/dL (3.4-5.0) Albumin/Globulin Ratio 0.8 (1.0-1.7) Lipase 158 U/L (73-393) Thyroid Stimulating Hormone (TSH) 1.663 uIU/mL (0.358-3.74) Urine Color Yellow Urine Clarity Clear Urine pH 6.0 Urine Specific [place] 1.020 Urine Protein Negative mg/dL (NEG-TRACE) Urine Glucose (UA) Negative mg/dL (NEG) Urine Ketones (Stick) Negative mg/dL (NEG) Urine Blood Negative (NEG) Urine Nitrite Positive (NEG) Urine Bilirubin Negative (NEG) Urine Urobilinogen Dipstick 0.2 mg/dL (0.2 mg/dL) Urine Leukocyte Esterase Moderate (NEG) Urine RBC 0 /HPF (0-2) Urine WBC 11-20 /HPF (0-4) Urine Squamous Epithelial Cells Occ /LPF Urine Bacteria Many /HPF (0-FEW) Urine Mucus Slight /LPF Test 09/17/17 02:08 09/17/17 05:30 White Blood Count 13.1 x10^3/uL (4.0-11.0) Red Blood Count 3.10 x10^6/uL (3.50-5.40) Hemoglobin 6.7 g/dL (12.0-15.5) 7.3 g/dL (12.0-15.5) Hematocrit 22.3 % (36.0-47.0) 22.5 % (36.0-47.0) Mean Corpuscular Volume 72 fL (79-100) Mean Corpuscular Hemoglobin 22 pg (25-35) Mean Corpuscular Hemoglobin Concent 30 g/dL (31-37) 32 g/dL (31-37) Red Cell Distribution Width 18.1 % (11.5-14.5) Platelet Count 292 x10^3/uL (140-400) Neutrophils (%) (Auto) 81 % (31-73) Lymphocytes (%) (Auto) 9 % (24-48) Monocytes (%) (Auto) 9 % (0-9) Eosinophils (%) (Auto) 1 % (0-3) Basophils (%) (Auto) 0 % (0-3) Neutrophils # (Auto) 10.6 x10^3uL (1.8-7.7) Lymphocytes # (Auto) 1.2 x10^3/uL (1.0-4.8) Monocytes # (Auto) 1.1 x10^3/uL (0.0-1.1) Eosinophils # (Auto) 0.1 x10^3/uL (0.0-0.7) Basophils # (Auto) 0.1 x10^3/uL (0.0-0.2) Sodium Level 145 mmol/L (136-145) Potassium Level 3.2 mmol/L (3.5-5.1) Chloride Level 105 mmol/L (98-107) Carbon Dioxide Level 30 mmol/L (21-32) Anion Gap 10 (6-14) Blood Urea Nitrogen 26 mg/dL (7-20) Creatinine 1.2 mg/dL (0.6-1.0) Estimated GFR (Cockcroft-Gault) 42.9 BUN/Creatinine Ratio 22 (6-20) Glucose Level 127 mg/dL (70-99) Calcium Level 8.0 mg/dL (8.5-10.1) Iron Level 11 ug/dL (50-170) Total Iron Binding Capacity 479 ug/dL (250-450) Iron Saturation 2 % (15-34) Total Bilirubin 0.5 mg/dL (0.2-1.0) Aspartate Amino Transf (AST/SGOT) 16 U/L (15-37) Alanine Aminotransferase (ALT/SGPT) 30 U/L (14-59) Alkaline Phosphatase 102 U/L (46-116) Troponin I Quantitative 0.081 ng/mL (0.000-0.055) Total Protein 6.7 g/dL (6.4-8.2) Albumin 2.9 g/dL (3.4-5.0) Albumin/Globulin Ratio 0.8 (1.0-1.7) Medications Current Medications Furosemide (Lasix) 80 mg 1X ONCE IVP Last administered on 09/16/17t 14:06; Start 09/16/17 at 14:00; Stop 09/16/17 at 14:01; Status DC Ondansetron HCl (Zofran) 4 mg PRN Q8HRS PRN IV NAUSEA/VOMITING; Start at 14:00; Stop 09/17/17 at 13:59 Fentanyl Citrate (Fentanyl 2ml Vial) 50 mcg PRN Q2HR PRN IV PAIN; Start at 14:00; Stop 09/17/17 at 13:59 Acetaminophen (Tylenol) 650 mg PRN Q4HRS PRN PO FEVER; Start 09/16/17 at 14:00 ; Stop 09/17/17 at 13:59 Nitroglycerin (Nitrostat) 0.4 mg PRN Q5MIN PRN SL CHEST PAIN; Start 09/16/17 at 14:00; Stop 09/17/17 at 13:59 Diphenhydramine HCl (Benadryl) 25 mg PRN QHS PRN PO INSOMNIA Last administered on 09/16/17 20:45; Start 09/16/17 at 14:15 Ceftriaxone Sodium 50 ml @ 100 mls/hr 1X ONCE IV ; Start 09/16/17 at 14:45; Stop 09/16/17 at 15:14; Status DC Amlodipine Besylate (Norvasc) 2.5 mg DAILY PO ; Start 09/17/17 at 09:00 Carvedilol (Coreg) 12.5 mg BIDWMEALS PO ; Start 09/17/17 at 08:00 Donepezil HCl (Aricept) 10 mg DAILY PO ; Start 09/17/17 at 09:00 Cholestyramine Resin (Questran Light) 4 gm DAILY PO ; Start 09/16/17 at 17:30 Losartan Potassium (Cozaar) 100 mg DAILY PO ; Start 09/17/17 at 09:00 Atorvastatin Calcium (Lipitor) 5 mg QHS PO Last administered on 09/16/17 20: 45; Start 09/16/17 at 21:00 Risperidone (RisperDAL) 0.75 mg DAILY PO ; Start 09/16/17 at 17:30 Hydralazine HCl (Apresoline Inj) 10 mg PRN Q4HRS PRN IVP ELEVATED BP, SEE COMMENTS; Start 09/16/17 at 17:30 Furosemide (Lasix) 40 mg DAILY IVP ; Start 09/17/17 at 09:00 Amoxicillin/ Clavulanate Potassium (Augmentin 875/ 125mg) 1 tab BID PO Last administered on 09/16/17 20:44; Start 09/16/17 at 21:00 Guaifenesin (Robitussin Dm) 10 ml PRN Q6HRS PRN PO COUGH Last administered on 09/16/17 20:44; Start 09/16/17 at 19:15 Albuterol Sulfate (Ventolin Neb Soln) 2.5 mg PRN Q4HRS PRN NEB SHORTNESS OF BREATH; Start 09/16/17 at 19:15 Active Scripts Active Reported Diazepam 5 Mg Tablet 5 Mg PO BID Aspirin 325 Mg Tablet 325 Mg PO DAILY Cholestyramine Packet (Cholestyramine (With Sugar)) 4 Gm Powd.pack 2 Gm PO DAILY Donepezil Hcl 10 Mg Tablet 10 Mg PO DAILY Risperidone 0.5 Mg Tablet 0.75 Mg PO DAILY Carvedilol 12.5 Mg Tablet 12.5 Mg PO BIDWMEALS Losartan-Hctz 100-25 Mg Tab (Losartan/Hydrochlorothiazide) 1 Each Tablet 1 Tab PO DAILY Pravastatin Sodium 20 Mg Tablet 20 Mg PO QHS Amlodipine Besylate 2.5 Mg Tablet 2.5 Mg PO DAILY Vitals/I & O Vital Sign - Last 24 Hours 09/16/17 09/16/17 09/16/17 09/16/17 12:28 13:00 13:30 14:00 Temp 99.0 99.0 Pulse 86 94 83 88 Resp 24 B/P (MAP) 159/70 (99) 168/74 (105) 159/76 (103) 194/86 (122) Pulse Ox 93 93 94 94 O2 Delivery Room Air Room Air Room Air Room Air 09/16/17 09/16/17 09/16/17 09/16/17 14:13 14:43 15:30 19:35 Temp 98.7 98.7 98.7 98.7 Pulse 84 87 91 Resp 28 20 18 B/P (MAP) 175/76 (109) 159/68 (98) 155/58 (90) Pulse Ox 93 93 92 O2 Delivery Room Air Room Air Room Air Room Air 09/16/17 09/16/17 09/17/17 09/17/17 20:00 23:05 03:15 05:54 Temp 99.6 99.2 99.6 99.6 99.2 99.6 Pulse 86 86 90 Resp 18 22 22 B/P (MAP) 133/55 (81) 134/52 (79) 138/55 Pulse Ox 92 91 O2 Delivery Room Air Room Air Room Air 09/17/17 09/17/17 09/17/17 09/17/17 06:54 07:25 07:25 07:38 Temp 99.2 99.2 99.1 99.2 99.2 99.1 Pulse 89 82 82 88 Resp 22 24 B/P (MAP) 138/55 132/54 132/54 (80) 140/44 Pulse Ox 90 O2 Delivery Room Air 09/17/17 09/17/17 09/17/17 07:45 07:55 08:38 Temp 99.5 99.5 Pulse 87 Resp 24 B/P (MAP) 146/59 Pulse Ox 94 O2 Delivery Nasal Cannula Nasal Cannula O2 Flow Rate 2.0 2.0 Intake and Output 09/16/17 09/16/17 09/17/17 15:00 23:00 07:00 Intake Total 500 ml 495 ml Output Total 50 ml 100 ml 600 ml Balance -50 ml 400 ml -105 ml PIPO HENSON MD Sep 17, 2017 08:59
[2017-09-17] MEDS ORDERED: POTASSIUM CHLORIDE 20 MEQ TABLET.ER. PO ONE (09:00)
[2017-09-17] MEDS: risperiDONE 0.25 MG TABLET. PO SCH (10:17)
[2017-09-17] MEDS: amLODIPine BESYLATE 2.5 MG TABLET PO SCH (10:17)
[2017-09-17] MEDS: DONEPEZIL HCL 10 MG TABLET. PO SCH (10:17)
[2017-09-17] MEDS: CARVEDILOL 12.5 MG TABLET. PO SCH ×2 (10:17→17:57)
[2017-09-17] MEDS: FUROSEMIDE 40 MG/4 ML VIAL. IVP SCH (10:18)
[2017-09-17] MEDS: LOSARTAN POTASSIUM 50 MG TABLET. PO SCH (10:18)
[2017-09-17] MEDS: CHOLESTYRAMINE/ASPARTAME 4 GM PACKET PO SCH ×2 (10:18→10:37)
[2017-09-17] MEDS: cefTRIAXone IV Push 1 GM VIAL. IVP SCH (10:19)
[2017-09-17] MEDS: NYSTATIN TOPICAL POWDER 15GM BOTTLE. TP SCH ×3 (10:19→23:05)
[2017-09-17] MEDS: BACITRACIN TOPICAL OINT 14GM TUBE. TP SCH ×2 (10:19→23:04)
[2017-09-17] MEDS: LACTOBACILLUS RHAMNOSUS GG 1 CAPSULE. PO SCH ×2 (10:31→23:04)
[2017-09-17] MEDS: FERROUS SULFATE 325 MG TABLET. PO SCH (10:33)
--- NOTE | 2017-09-17 10:38 | PDOC ---
CARRIE CONNELL PROCUREMENT AGENT 09/17/17 1038: CARDIO Progress Notes Date and Time Date of Service 09/17/17 Time of Evaluation 1030 Subjective Subjective: No Chest Pain, No shortness of breath, No Palpitations, Other ( edema improved) Vitals Vitals Vital Signs Date Time Temp Pulse Resp B/P (MAP) Pulse Ox O2 Delivery O2 Flow Rate FiO2 09/17/17 09:00 99.5 85 22 154/67 99.5 09/17/17 08:38 94 Nasal Cannula 2.0 Weight Weight [ ] Input and Output Intake and Output Intake and Output 09/17/17 07:00 Intake Total 995 ml Output Total 750 ml Balance 245 ml Intake Oral 980 ml Blood Product IV Normal Saline Flush 15 ml Output Urine Total 750 ml Laboratory Labs Laboratory Tests Test 09/16/17 12:50 09/16/17 13:24 09/16/17 14:00 09/16/17 19:10 Lactic Acid Level 2.8 mmol/L (0.4-2.0) 2.6 mmol/L (0.4-2.0) Troponin I Quantitative 0.038 ng/mL (0.000-0.055) DR-Cpi-F-Type Natriuretic Peptide 1756 pg/mL (0-449) White Blood Count 14.5 x10^3/uL (4.0-11.0) Red Blood Count 3.38 x10^6/uL (3.50-5.40) Hemoglobin 7.4 g/dL (12.0-15.5) Hematocrit 24.9 % (36.0-47.0) Mean Corpuscular Volume 74 fL (79-100) Mean Corpuscular Hemoglobin 22 pg (25-35) Mean Corpuscular Hemoglobin Concent 30 g/dL (31-37) Red Cell Distribution Width 17.5 % (11.5-14.5) Platelet Count 315 x10^3/uL (140-400) Neutrophils (%) (Auto) 84 % (31-73) Lymphocytes (%) (Auto) 8 % (24-48) Monocytes (%) (Auto) 7 % (0-9) Eosinophils (%) (Auto) 1 % (0-3) Basophils (%) (Auto) 1 % (0-3) Neutrophils # (Auto) 12.1 x10^3uL (1.8-7.7) Lymphocytes # (Auto) 1.2 x10^3/uL (1.0-4.8) Monocytes # (Auto) 1.0 x10^3/uL (0.0-1.1) Eosinophils # (Auto) 0.1 x10^3/uL (0.0-0.7) Basophils # (Auto) 0.1 x10^3/uL (0.0-0.2) Toxic Granulation Slight Platelet Estimate Adequate (ADEQUATE) Polychromasia Slight Hypochromasia Mod Anisocytosis Mod Microcytosis Mod Reticulocyte Count (auto) 3.2 % (0.5-2.5) Sodium Level 142 mmol/L (136-145) Potassium Level 3.5 mmol/L (3.5-5.1) Chloride Level 104 mmol/L (98-107) Carbon Dioxide Level 28 mmol/L (21-32) Anion Gap 10 (6-14) Blood Urea Nitrogen 25 mg/dL (7-20) Creatinine 1.3 mg/dL (0.6-1.0) Estimated GFR (Cockcroft-Gault) 39.1 BUN/Creatinine Ratio 19 (6-20) Glucose Level 166 mg/dL (70-99) Calcium Level 8.7 mg/dL (8.5-10.1) Iron Level 17 ug/dL (50-170) Total Iron Binding Capacity 531 ug/dL (250-450) Iron Saturation 3 % (15-34) Total Bilirubin 0.4 mg/dL (0.2-1.0) Aspartate Amino Transf (AST/SGOT) 21 U/L (15-37) Alanine Aminotransferase (ALT/SGPT) 39 U/L (14-59) Alkaline Phosphatase 124 U/L (46-116) Total Protein 7.3 g/dL (6.4-8.2) Albumin 3.3 g/dL (3.4-5.0) Albumin/Globulin Ratio 0.8 (1.0-1.7) Lipase 158 U/L (73-393) Thyroid Stimulating Hormone (TSH) 1.663 uIU/mL (0.358-3.74) Urine Color Yellow Urine Clarity Clear Urine pH 6.0 Urine Specific [place] 1.020 Urine Protein Negative mg/dL (NEG-TRACE) Urine Glucose (UA) Negative mg/dL (NEG) Urine Ketones (Stick) Negative mg/dL (NEG) Urine Blood Negative (NEG) Urine Nitrite Positive (NEG) Urine Bilirubin Negative (NEG) Urine Urobilinogen Dipstick 0.2 mg/dL (0.2 mg/dL) Urine Leukocyte Esterase Moderate (NEG) Urine RBC 0 /HPF (0-2) Urine WBC 11-20 /HPF (0-4) Urine Squamous Epithelial Cells Occ /LPF Urine Bacteria Many /HPF (0-FEW) Urine Mucus Slight /LPF Test 09/17/17 02:08 09/17/17 05:30 09/17/17 09:30 White Blood Count 13.1 x10^3/uL (4.0-11.0) Red Blood Count 3.10 x10^6/uL (3.50-5.40) Hemoglobin 6.7 g/dL (12.0-15.5) 7.3 g/dL (12.0-15.5) Hematocrit 22.3 % (36.0-47.0) 22.5 % (36.0-47.0) Mean Corpuscular Volume 72 fL (79-100) Mean Corpuscular Hemoglobin 22 pg (25-35) Mean Corpuscular Hemoglobin Concent 30 g/dL (31-37) 32 g/dL (31-37) Red Cell Distribution Width 18.1 % (11.5-14.5) Platelet Count 292 x10^3/uL (140-400) Neutrophils (%) (Auto) 81 % (31-73) Lymphocytes (%) (Auto) 9 % (24-48) Monocytes (%) (Auto) 9 % (0-9) Eosinophils (%) (Auto) 1 % (0-3) Basophils (%) (Auto) 0 % (0-3) Neutrophils # (Auto) 10.6 x10^3uL (1.8-7.7) Lymphocytes # (Auto) 1.2 x10^3/uL (1.0-4.8) Monocytes # (Auto) 1.1 x10^3/uL (0.0-1.1) Eosinophils # (Auto) 0.1 x10^3/uL (0.0-0.7) Basophils # (Auto) 0.1 x10^3/uL (0.0-0.2) Sodium Level 145 mmol/L (136-145) Potassium Level 3.2 mmol/L (3.5-5.1) Chloride Level 105 mmol/L (98-107) Carbon Dioxide Level 30 mmol/L (21-32) Anion Gap 10 (6-14) Blood Urea Nitrogen 26 mg/dL (7-20) Creatinine 1.2 mg/dL (0.6-1.0) Estimated GFR (Cockcroft-Gault) 42.9 BUN/Creatinine Ratio 22 (6-20) Glucose Level 127 mg/dL (70-99) Calcium Level 8.0 mg/dL (8.5-10.1) Iron Level 11 ug/dL (50-170) Total Iron Binding Capacity 479 ug/dL (250-450) Iron Saturation 2 % (15-34) Total Bilirubin 0.5 mg/dL (0.2-1.0) Aspartate Amino Transf (AST/SGOT) 16 U/L (15-37) Alanine Aminotransferase (ALT/SGPT) 30 U/L (14-59) Alkaline Phosphatase 102 U/L (46-116) Troponin I Quantitative 0.081 ng/mL (0.000-0.055) Total Protein 6.7 g/dL (6.4-8.2) Albumin 2.9 g/dL (3.4-5.0) Albumin/Globulin Ratio 0.8 (1.0-1.7) Lactic Acid Level 2.4 mmol/L (0.4-2.0) Physical Exam HEENT: Neck Supple W Full Motion Chest: Symmetric LUNGS: Clear to Auscultation, Other (diminished bases) Heart: S1S2, RRR Abdomen: Soft N/T Extremities: Other (2+ bilateral LE edema with erythema and open ulcers) Neurology: alert, follow commands Assessment Assessment 1. Acute on chronic diastolic HF 2. Hypertension 3. CKD 4. Anemia 5. UTI 6. Venous insufficiency 7. Hypokalemia Recommendations Check echo to assess LV function Continue diuresis with replacement of electrolytes as warranted Supportive care JOHNATHAN CHANDLER MD 09/18/17 0908: CARDIO Progress Notes Plan Plan Late entry for 09/17/2017 Pt. seen and examined. Agree with above LINUX CONSULTANT note. Continue diuresis. EF is normal on echo. Suspect significant diastolic HF. CARRIE CONNELL APRN Sep 17, 2017 10:38 JOHNATHAN CHANDLER MD Sep 18, 2017 09:08
--- NOTE | 2017-09-17 10:48 | PDOC2 ---
OANH JEAN-BAPTISTE 09/17/17 1048: GI CONSULT Reason For Consult: PEDRITO, anemia, microcytic HPI: HPI: 82 y/o female w/ some memory issues, much of history from , evaluated in ER for SOA and LE swelling, admitted w/ CHF exacerbation. Found also w/ PEDRITO, GI asked to see for this. cares for her at home, sometimes when cleaning her bottom with a warm washcloth, he notes hints of red blood but he says there is no obvious red or black blood in stool. No n/v, reflux/heartburn , dysphagia, abd pain, diarrhea, constipation, change in appetite, or weight loss. Denies previous EGD or colonoscopy. S/p cholecystectomy. No liver or pancreas history. Has taken iron in the past, says "we don't really think of her having anemia" - stopped iron due to stools looking black and constipation. Takes ASA daily, no NSAIDs. Re: future endoscopic evaluation, they are not sure she would be willing. PMH: PMH: HTN, HLD, CHF, TIA, CKD, UTIs, anemia, depression, short-term memory loss, bilateral cataract extraction, tonsillectomy, cholecystectomy, breast biopsy, back surgery, right knee surgery, varicose vein surgery FH: Family History: No pertinent hx (denies GI cancers) Social History: Smoke: No ALCOHOL: rare Drugs: None ROS: GEN: Denies fevers, chills, sweats HEENT: Denies blurred vision, sore throat CV: Denies chest pain RESP: +SOA GI: Per HPI : Denies hematuria, dysuria ENDO: +weight gain NEURO: +memory loss MSK: +LE swelling SKIN: Denies jaundice, pruritus Vitals: Vitals: Vital Signs Date Time Temp Pulse Resp B/P (MAP) Pulse Ox O2 Delivery O2 Flow Rate FiO2 09/17/17 09:00 99.5 85 22 154/67 99.5 09/17/17 08:38 94 Nasal Cannula 2.0 Labs: Labs: Laboratory Tests Test 09/16/17 12:50 09/16/17 13:24 09/16/17 14:00 09/16/17 19:10 Lactic Acid Level 2.8 mmol/L (0.4-2.0) 2.6 mmol/L (0.4-2.0) Troponin I Quantitative 0.038 ng/mL (0.000-0.055) JY-Dzz-M-Type Natriuretic Peptide 1756 pg/mL (0-449) White Blood Count 14.5 x10^3/uL (4.0-11.0) Red Blood Count 3.38 x10^6/uL (3.50-5.40) Hemoglobin 7.4 g/dL (12.0-15.5) Hematocrit 24.9 % (36.0-47.0) Mean Corpuscular Volume 74 fL (79-100) Mean Corpuscular Hemoglobin 22 pg (25-35) Mean Corpuscular Hemoglobin Concent 30 g/dL (31-37) Red Cell Distribution Width 17.5 % (11.5-14.5) Platelet Count 315 x10^3/uL (140-400) Neutrophils (%) (Auto) 84 % (31-73) Lymphocytes (%) (Auto) 8 % (24-48) Monocytes (%) (Auto) 7 % (0-9) Eosinophils (%) (Auto) 1 % (0-3) Basophils (%) (Auto) 1 % (0-3) Neutrophils # (Auto) 12.1 x10^3uL (1.8-7.7) Lymphocytes # (Auto) 1.2 x10^3/uL (1.0-4.8) Monocytes # (Auto) 1.0 x10^3/uL (0.0-1.1) Eosinophils # (Auto) 0.1 x10^3/uL (0.0-0.7) Basophils # (Auto) 0.1 x10^3/uL (0.0-0.2) Toxic Granulation Slight Platelet Estimate Adequate (ADEQUATE) Polychromasia Slight Hypochromasia Mod Anisocytosis Mod Microcytosis Mod Reticulocyte Count (auto) 3.2 % (0.5-2.5) Sodium Level 142 mmol/L (136-145) Potassium Level 3.5 mmol/L (3.5-5.1) Chloride Level 104 mmol/L (98-107) Carbon Dioxide Level 28 mmol/L (21-32) Anion Gap 10 (6-14) Blood Urea Nitrogen 25 mg/dL (7-20) Creatinine 1.3 mg/dL (0.6-1.0) Estimated GFR (Cockcroft-Gault) 39.1 BUN/Creatinine Ratio 19 (6-20) Glucose Level 166 mg/dL (70-99) Calcium Level 8.7 mg/dL (8.5-10.1) Iron Level 17 ug/dL (50-170) Total Iron Binding Capacity 531 ug/dL (250-450) Iron Saturation 3 % (15-34) Total Bilirubin 0.4 mg/dL (0.2-1.0) Aspartate Amino Transf (AST/SGOT) 21 U/L (15-37) Alanine Aminotransferase (ALT/SGPT) 39 U/L (14-59) Alkaline Phosphatase 124 U/L (46-116) Total Protein 7.3 g/dL (6.4-8.2) Albumin 3.3 g/dL (3.4-5.0) Albumin/Globulin Ratio 0.8 (1.0-1.7) Lipase 158 U/L (73-393) Thyroid Stimulating Hormone (TSH) 1.663 uIU/mL (0.358-3.74) Urine Color Yellow Urine Clarity Clear Urine pH 6.0 Urine Specific [place] 1.020 Urine Protein Negative mg/dL (NEG-TRACE) Urine Glucose (UA) Negative mg/dL (NEG) Urine Ketones (Stick) Negative mg/dL (NEG) Urine Blood Negative (NEG) Urine Nitrite Positive (NEG) Urine Bilirubin Negative (NEG) Urine Urobilinogen Dipstick 0.2 mg/dL (0.2 mg/dL) Urine Leukocyte Esterase Moderate (NEG) Urine RBC 0 /HPF (0-2) Urine WBC 11-20 /HPF (0-4) Urine Squamous Epithelial Cells Occ /LPF Urine Bacteria Many /HPF (0-FEW) Urine Mucus Slight /LPF Test 09/17/17 02:08 09/17/17 05:30 09/17/17 09:30 White Blood Count 13.1 x10^3/uL (4.0-11.0) Red Blood Count 3.10 x10^6/uL (3.50-5.40) Hemoglobin 6.7 g/dL (12.0-15.5) 7.3 g/dL (12.0-15.5) Hematocrit 22.3 % (36.0-47.0) 22.5 % (36.0-47.0) Mean Corpuscular Volume 72 fL (79-100) Mean Corpuscular Hemoglobin 22 pg (25-35) Mean Corpuscular Hemoglobin Concent 30 g/dL (31-37) 32 g/dL (31-37) Red Cell Distribution Width 18.1 % (11.5-14.5) Platelet Count 292 x10^3/uL (140-400) Neutrophils (%) (Auto) 81 % (31-73) Lymphocytes (%) (Auto) 9 % (24-48) Monocytes (%) (Auto) 9 % (0-9) Eosinophils (%) (Auto) 1 % (0-3) Basophils (%) (Auto) 0 % (0-3) Neutrophils # (Auto) 10.6 x10^3uL (1.8-7.7) Lymphocytes # (Auto) 1.2 x10^3/uL (1.0-4.8) Monocytes # (Auto) 1.1 x10^3/uL (0.0-1.1) Eosinophils # (Auto) 0.1 x10^3/uL (0.0-0.7) Basophils # (Auto) 0.1 x10^3/uL (0.0-0.2) Sodium Level 145 mmol/L (136-145) Potassium Level 3.2 mmol/L (3.5-5.1) Chloride Level 105 mmol/L (98-107) Carbon Dioxide Level 30 mmol/L (21-32) Anion Gap 10 (6-14) Blood Urea Nitrogen 26 mg/dL (7-20) Creatinine 1.2 mg/dL (0.6-1.0) Estimated GFR (Cockcroft-Gault) 42.9 BUN/Creatinine Ratio 22 (6-20) Glucose Level 127 mg/dL (70-99) Calcium Level 8.0 mg/dL (8.5-10.1) Iron Level 11 ug/dL (50-170) Total Iron Binding Capacity 479 ug/dL (250-450) Iron Saturation 2 % (15-34) Total Bilirubin 0.5 mg/dL (0.2-1.0) Aspartate Amino Transf (AST/SGOT) 16 U/L (15-37) Alanine Aminotransferase (ALT/SGPT) 30 U/L (14-59) Alkaline Phosphatase 102 U/L (46-116) Troponin I Quantitative 0.081 ng/mL (0.000-0.055) Total Protein 6.7 g/dL (6.4-8.2) Albumin 2.9 g/dL (3.4-5.0) Albumin/Globulin Ratio 0.8 (1.0-1.7) Lactic Acid Level 2.4 mmol/L (0.4-2.0) Allergies: Coded Allergies: No Known Drug Allergies (Unverified , 09/16/17) Medications: Current Medications Medications (Trade) Dose Ordered Sig/Kerrie Route PRN Reason Start Time Stop Time Status Last Admin Dose Admin Furosemide (Lasix) 80 mg 1X ONCE IVP 09/16/17 14:00 09/16/17 14:01 DC 09/16/17 14:06 Diphenhydramine HCl (Benadryl) 25 mg PRN QHS PRN PO INSOMNIA 09/16/17 14:15 09/16/17 20:45 Atorvastatin Calcium (Lipitor) 5 mg QHS PO 09/16/17 21:00 09/16/17 20:45 Amoxicillin/ Clavulanate Potassium (Augmentin 875/ 125mg) 1 tab BID PO 09/16/17 21:00 09/17/17 09:00 DC 09/16/17 20:44 Guaifenesin (Robitussin Dm) 10 ml PRN Q6HRS PRN PO COUGH 09/16/17 19:15 09/16/17 20:44 Imaging: Imaging: Renal US IMPRESSION: No significant renal abnormality is detected. CXR Impression: Findings most suggestive of CHF with right greater than left pleural effusions. PE: GEN: NAD HEENT: Atraumatic, PERRL LUNGS: tachypneic, nasal cannula, diminished HEART: RRR ABD: NABS, S/ND/NT EXTREMITY: BLE edema SKIN: venous insuff, wounds NEURO/PSYCH: awake/alert, occasionally gives 1-2 word answers A/P: A/P: SOA, BLE edema, CHF Elevated troponin, lactic acidosis, CKD, UTI PEDRITO, ?rectal bleeding -has taken iron in the past, stopped due to constipation and black appearance of stools -occasionally red blood noted on washcloth when cleaning -not much improvement in Hgb w/ transfusion CRC screen -pt/ do not recall previous colonoscopy S/p cholecystectomy Memory loss -- Not a good endoscopy candidate currently, pt and to consider future EGD and colonoscopy. Transfuse PRN, continue per cardiology. CHRIS CLAUDIO MD 09/17/17 1653: GI CONSULT Allergies: Coded Allergies: No Known Drug Allergies (Unverified , 09/16/17) OANH JEAN-BAPTISTE Sep 17, 2017 10:48 CHRIS CLAUDIO MD Sep 17, 2017 16:53
--- NOTE | 2017-09-17 12:03 | CARD ---
APPROVED REPORT EXAM: Two-dimensional and M-mode echocardiogram with Doppler and color Doppler. Other Information Quality : Average INDICATION Congestive Heart Failure DX EDEMA 2D DIMENSIONS Left Atrium(2D)3.2 (1.6-4.0cm)IVSd1.3 (0.7-1.1cm) Aortic Root(2D)3.1 (2.0-3.7cm)LVDd4.2 (3.9-5.9cm) LVOT Diameter2.0 (1.8-2.4cm)PWd1.2 (0.7-1.1cm) LVDs3.0 (2.5-4.0cm)FS (%) 30.2 % SV46.4 mlLVEF(%)57.9 (>50%) Aortic Valve AoV Peak Marc.143.9cm/sAoV VTI31.8cm AO Peak GR.8.3mmHgLVOT Peak Marc.91.3cm/s AO Mean GR.4mmHgAVA (VMAX)2.00cm2 ALVA (VTI)1.70cm2 Mitral Valve MV E Lyfjxwee54.2cm/sMV DECEL [id number] MV A Ngkozmlj89.8cm/sE/A Ratio1.7 Tricuspid Valve TR P. [id number]/sRAP [id number] TR Peak Gr.[id number] LEFT VENTRICLE The left ventricle is normal size. There is mild concentric left ventricular hypertrophy. Left ventri reji systolic function is normal. The Ejection Fraction is 55-60%. There is normal LV segmental wall m otion. Tissue Doppler imaging reveals abnormal left ventricular diastolic dysfunction. RIGHT VENTRICLE The right ventricle is normal size. The right ventricular systolic function is normal. ATRIA The left atrium size is normal. The right atrium size is normal. The interatrial septum is intact wit h no evidence for an atrial septal defect or patent foramen ovale as noted on 2-D or Doppler imaging. AORTIC VALVE The aortic valve is mildly calcified. Doppler and Color Flow revealed no significant aortic regurgita tion. There is no significant aortic valvular stenosis. MITRAL VALVE Mitral annular calcification is mild. There is no evidence of mitral valve prolapse. There is no mitr al valve stenosis. Doppler and Color-flow revealed trace mitral regurgitation. TRICUSPID VALVE The tricuspid valve is normal in structure. Doppler and Color Flow revealed mild to moderate tricuspi d regurgitation. There is moderate pulmonary hypertension. The PA pressure was estimated at 54 mmHg. There is no tricuspid valve prolapse or vegetation. There is no tricuspid valve stenosis. PULMONIC VALVE Doppler and Color Flow revealed no pulmonic valvular regurgitation. There is no pulmonic valvular garima nosis. GREAT VESSELS The aortic root is normal in size. The ascending aorta is normal in size. The IVC is normal in size a nd collapses >50% with inspiration. PERICARDIAL EFFUSION There is no pleural effusion. There is no evidence of significant pericardial effusion. Critical Notification Critical Value: No <Conclusion> Left ventricle systolic function is normal. The Ejection Fraction is 55-60%. There is normal LV segmental wall motion. Doppler and Color Flow revealed mild to moderate tricuspid regurgitation. There is moderate pulmonary hypertension. The PA pressure was estimated at 54 mmHg.
[2017-09-17] MEDS: ATORVASTATIN CALCIUM 10 MG TABLET. PO SCH (23:04)
[2017-09-18 03:44] VITALS: BP 127/68
[2017-09-18 06:30] LABS: HEMATOCRIT 28.6 % (36.0-47.0); HEMOGLOBIN 8.6 g/dL (12.0-15.5)
[2017-09-18 07:00] VITALS: BP 157/69
[2017-09-18 08:45] LABS: VITAMIN-B12 376 pg/mL (247-911)
[2017-09-18] MEDS: CARVEDILOL 12.5 MG TABLET. PO SCH ×2 (09:42→17:39)
[2017-09-18] MEDS: LOSARTAN POTASSIUM 50 MG TABLET. PO SCH (09:42)
[2017-09-18] MEDS: FERROUS SULFATE 325 MG TABLET. PO SCH (09:43)
[2017-09-18] MEDS: LACTOBACILLUS RHAMNOSUS GG 1 CAPSULE. PO SCH ×2 (09:43→20:36)
[2017-09-18] MEDS: BACITRACIN TOPICAL OINT 14GM TUBE. TP SCH ×2 (09:43→20:38)
[2017-09-18] MEDS: NYSTATIN TOPICAL POWDER 15GM BOTTLE. TP SCH ×3 (09:43→20:38)
[2017-09-18] MEDS: risperiDONE 0.25 MG TABLET. PO SCH (09:43)
[2017-09-18] MEDS: CHOLESTYRAMINE/ASPARTAME 4 GM PACKET PO SCH (09:43)
[2017-09-18] MEDS: amLODIPine BESYLATE 2.5 MG TABLET PO SCH (09:43)
[2017-09-18] MEDS: DONEPEZIL HCL 10 MG TABLET. PO SCH (09:43)
[2017-09-18] MEDS: cefTRIAXone IV Push 1 GM VIAL. IVP SCH (09:44)
[2017-09-18] MEDS: POTASSIUM CHLORIDE 20 MEQ TABLET.ER. PO SCH (09:44)
[2017-09-18] MEDS: FUROSEMIDE 40 MG/4 ML VIAL. IVP SCH (09:44)
[2017-09-18 09:50] LABS: FOLATE > 24.00 ng/ml (3.2-20.0)
[2017-09-18 11:00] VITALS: BP 128/60
--- NOTE | 2017-09-18 11:30 | PDOC ---
Subjective: Subjective: Breathing better, no bleeding. Objective: Objective: RN present - issues w/ memory. Vital Signs: Vital Signs Date Time Temp Pulse Resp B/P (MAP) Pulse Ox O2 Delivery O2 Flow Rate FiO2 09/18/17 09:43 85 157/69 09/18/17 07:55 Nasal Cannula 2.0 09/18/17 07:42 94 09/18/17 07:00 98.7 19 98.7 Labs: Laboratory Tests Test 09/18/17 05:00 09/18/17 05:30 Hemoglobin 8.6 g/dL Hematocrit 28.6 % Mean Corpuscular Hemoglobin Concent 30 g/dL Vitamin B12 Level 376 pg/mL Serum Folate > 24.00 ng/ml PE: GEN: NAD LUNGS: improved, on RA when I saw HEART: RRR ABD: S/ND/NT NEURO/PSYCH: probably confused A/P: CHF PEDRITO -has taken iron in the past, stopped due to constipation and black appearance of stools -?rectal bleeding at home -Hgb improved w/ transfusion -- D/w pt/ yesterday - no desire for EGD or colonoscopy as this time. Could increase iron to BID if will tolerate. B12 lowish, will review w/ Dr. Sutherland. OANH JEAN-BAPTISTE Sep 18, 2017 11:30
--- NOTE | 2017-09-18 13:40 | PDOC ---
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 Microcytic anemia, PEDRITO Sepsis POA Deconditioning GEn weakness Frailty FUll code HIgh fall risk History of Present Illness History of Present Illness RBC better posttransfusion IRon studies, compatible with PEDRITO multiple friends visiting, pt looks well. No complaints today. agrees with SNU physical therapy recommended SNU. 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 Vitals Vitals Vital Signs Date Time Temp Pulse Resp B/P (MAP) Pulse Ox O2 Delivery O2 Flow Rate FiO2 09/18/17 11:00 99.0 82 17 128/60 (82) 96 Room Air 99.0 09/18/17 07:55 2.0 Physical Exam General: Alert, Oriented X3, Cooperative Heart: Normal S1, Normal S2, Other (dec BS) Lungs: Clear, Crackles Abdomen: Normal bowel sounds, Soft Extremities: No clubbing, No cyanosis, Other (pitting edema plus 3, leg wounds superficial) Skin: No rashes, No breakdown, Other (bilateral lower extremity wounds) Labs LABS Laboratory Tests Test 09/18/17 05:00 09/18/17 05:30 Hemoglobin 8.6 g/dL (12.0-15.5) Hematocrit 28.6 % (36.0-47.0) Mean Corpuscular Hemoglobin Concent 30 g/dL (31-37) Vitamin B12 Level 376 pg/mL (247-911) Serum Folate > 24.00 ng/ml (3.2-20.0) Review of Systems Review of Systems A 14 point ROS was completed with the following noted as positive: Other systems reviewed and negative. \CONSTITUTIONAL: No fever or chills EYES: No recent changes SKIN: No rash or itching CARDIOVASCULAR: No chest pain, syncope, palpitations, or edema RESPIRATORY: No SOB or cough GASTROINTESTINAL: No nausea, vomiting or abdominal pain NEUROLOGICAL: No headaches or weakness ENDOCRINE: No cold or heat intolerance GENITOURINARY: No urgency or frequency of urination MUSCULOSKELETAL: No back pain or joint pain LYMPHATICS: No enlarged lymph nodes PSYCHIATRIC: No anxiety or depression Assessment and Plan Assessmemt and Plan Problems Medical Problems: (1) Anemia Status: Acute (2) CHF exacerbation Status: Acute (3) Pleural effusion Status: Acute Problems: Comment Review of Relevant I have reviewed the following items quintin (where applicable) has been applied. Labs Laboratory Tests Test 09/16/17 14:00 09/16/17 19:10 09/17/17 02:08 09/17/17 05:30 Urine Color Yellow Urine Clarity Clear Urine pH 6.0 Urine Specific [employer] 1.020 Urine Protein Negative mg/dL (NEG-TRACE) Urine Glucose (UA) Negative mg/dL (NEG) Urine Ketones (Stick) Negative mg/dL (NEG) Urine Blood Negative (NEG) Urine Nitrite Positive (NEG) Urine Bilirubin Negative (NEG) Urine Urobilinogen Dipstick 0.2 mg/dL (0.2 mg/dL) Urine Leukocyte Esterase Moderate (NEG) Urine RBC 0 /HPF (0-2) Urine WBC 11-20 /HPF (0-4) Urine Squamous Epithelial Cells Occ /LPF Urine Bacteria Many /HPF (0-FEW) Urine Mucus Slight /LPF Lactic Acid Level 2.6 mmol/L (0.4-2.0) White Blood Count 13.1 x10^3/uL (4.0-11.0) Red Blood Count 3.10 x10^6/uL (3.50-5.40) Hemoglobin 6.7 g/dL (12.0-15.5) 7.3 g/dL (12.0-15.5) Hematocrit 22.3 % (36.0-47.0) 22.5 % (36.0-47.0) Mean Corpuscular Volume 72 fL (79-100) Mean Corpuscular Hemoglobin 22 pg (25-35) Mean Corpuscular Hemoglobin Concent 30 g/dL (31-37) 32 g/dL (31-37) Red Cell Distribution Width 18.1 % (11.5-14.5) Platelet Count 292 x10^3/uL (140-400) Neutrophils (%) (Auto) 81 % (31-73) Lymphocytes (%) (Auto) 9 % (24-48) Monocytes (%) (Auto) 9 % (0-9) Eosinophils (%) (Auto) 1 % (0-3) Basophils (%) (Auto) 0 % (0-3) Neutrophils # (Auto) 10.6 x10^3uL (1.8-7.7) Lymphocytes # (Auto) 1.2 x10^3/uL (1.0-4.8) Monocytes # (Auto) 1.1 x10^3/uL (0.0-1.1) Eosinophils # (Auto) 0.1 x10^3/uL (0.0-0.7) Basophils # (Auto) 0.1 x10^3/uL (0.0-0.2) Sodium Level 145 mmol/L (136-145) Potassium Level 3.2 mmol/L (3.5-5.1) Chloride Level 105 mmol/L (98-107) Carbon Dioxide Level 30 mmol/L (21-32) Anion Gap 10 (6-14) Blood Urea Nitrogen 26 mg/dL (7-20) Creatinine 1.2 mg/dL (0.6-1.0) Estimated GFR (Cockcroft-Gault) 42.9 BUN/Creatinine Ratio 22 (6-20) Glucose Level 127 mg/dL (70-99) Calcium Level 8.0 mg/dL (8.5-10.1) Magnesium Level 2.1 mg/dL (1.8-2.4) Iron Level 11 ug/dL (50-170) Total Iron Binding Capacity 479 ug/dL (250-450) Iron Saturation 2 % (15-34) Total Bilirubin 0.5 mg/dL (0.2-1.0) Aspartate Amino Transf (AST/SGOT) 16 U/L (15-37) Alanine Aminotransferase (ALT/SGPT) 30 U/L (14-59) Alkaline Phosphatase 102 U/L (46-116) Troponin I Quantitative 0.081 ng/mL (0.000-0.055) Total Protein 6.7 g/dL (6.4-8.2) Albumin 2.9 g/dL (3.4-5.0) Albumin/Globulin Ratio 0.8 (1.0-1.7) Test 09/17/17 09:30 09/18/17 05:00 09/18/17 05:30 Lactic Acid Level 2.4 mmol/L (0.4-2.0) Hemoglobin 8.6 g/dL (12.0-15.5) Hematocrit 28.6 % (36.0-47.0) Mean Corpuscular Hemoglobin Concent 30 g/dL (31-37) Vitamin B12 Level 376 pg/mL (247-911) Serum Folate > 24.00 ng/ml (3.2-20.0) Laboratory Tests Test 09/18/17 05:00 09/18/17 05:30 Hemoglobin 8.6 g/dL (12.0-15.5) Hematocrit 28.6 % (36.0-47.0) Mean Corpuscular Hemoglobin Concent 30 g/dL (31-37) Vitamin B12 Level 376 pg/mL (247-911) Serum Folate > 24.00 ng/ml (3.2-20.0) Microbiology 09/16/17 Blood Culture - Preliminary, Resulted NO GROWTH AFTER 2 DAYS 09/16/17 Urine Culture - Preliminary, Resulted 09/16/17 Urine Culture Result 1 (IKE) - Preliminary, Resulted Medications Current Medications Furosemide (Lasix) 80 mg 1X ONCE IVP Last administered on 09/16/17 14:06; Start 09/16/17 at 14:00; Stop 09/16/17 at 14:01; Status DC Ondansetron HCl (Zofran) 4 mg PRN Q8HRS PRN IV NAUSEA/VOMITING; Start at 14:00; Stop 09/17/17 at 13:59; Status DC Fentanyl Citrate (Fentanyl 2ml Vial) 50 mcg PRN Q2HR PRN IV PAIN; Start at 14:00; Stop 09/17/17 at 13:59; Status DC Acetaminophen (Tylenol) 650 mg PRN Q4HRS PRN PO FEVER; Start 09/16/17 at 14:00 ; Stop 09/17/17 at 13:59; Status DC Nitroglycerin (Nitrostat) 0.4 mg PRN Q5MIN PRN SL CHEST PAIN; Start 09/16/17 at 14:00; Stop 09/17/17 at 13:59; Status DC Diphenhydramine HCl (Benadryl) 25 mg PRN QHS PRN PO INSOMNIA Last administered on 09/16/17 20:45; Start 09/16/17 at 14:15 Ceftriaxone Sodium 50 ml @ 100 mls/hr 1X ONCE IV ; Start 09/16/17 at 14:45; Stop 09/16/17 at 15:14; Status DC Amlodipine Besylate (Norvasc) 2.5 mg DAILY PO Last administered on 09/18/17 09:43; Start 09/17/17 at 09:00 Carvedilol (Coreg) 12.5 mg BIDWMEALS PO Last administered on 09/18/17 09:42; Start 09/17/17 at 08:00 Donepezil HCl (Aricept) 10 mg DAILY PO Last administered on 09/18/17 09:43; Start 09/17/17 at 09:00 Cholestyramine Resin (Questran Light) 4 gm DAILY PO Last administered on 09:43; Start 09/16/17 at 17:30 Losartan Potassium (Cozaar) 100 mg DAILY PO Last administered on 09/18/17 09: 42; Start 09/17/17 at 09:00 Atorvastatin Calcium (Lipitor) 5 mg QHS PO Last administered on 09/17/17 23: 04; Start 09/16/17 at 21:00 Risperidone (RisperDAL) 0.75 mg DAILY PO Last administered on 09/18/17 09:43 ; Start 09/16/17 at 17:30 Hydralazine HCl (Apresoline Inj) 10 mg PRN Q4HRS PRN IVP ELEVATED BP, SEE COMMENTS; Start 09/16/17 at 17:30 Furosemide (Lasix) 40 mg DAILY IVP Last administered on 09/18/17 09:44; Start 09/17/17 at 09:00 Amoxicillin/ Clavulanate Potassium (Augmentin 875/ 125mg) 1 tab BID PO Last administered on 09/16/17 20:44; Start 09/16/17 at 21:00; Stop 09/17/17 at 09 :00; Status DC Guaifenesin (Robitussin Dm) 10 ml PRN Q6HRS PRN PO COUGH Last administered on 09/16/17 20:44; Start 09/16/17 at 19:15 Albuterol Sulfate (Ventolin Neb Soln) 2.5 mg PRN Q4HRS PRN NEB SHORTNESS OF BREATH Last administered on 09/18/17 07:41; Start 09/16/17 at 19:15 Nystatin (Nystop) 1 yareli TID TP Last administered on 09/18/17 09:43; Start at 09:00 Potassium Chloride (Klor-Con) 40 meq 1X ONCE PO Last administered on 10:31; Start 09/17/17 at 09:00; Stop 09/17/17 at 09:01; Status DC Potassium Chloride (Klor-Con) 40 meq DAILYWBKFT PO Last administered on 09:44; Start 09/18/17 at 08:00 Ferrous Sulfate (Feosol) 325 mg DAILYWBKFT PO Last administered on 09/18/17 09:43; Start 09/17/17 at 11:30 Bacitracin 1 yareli BID TP Last administered on 09/18/17 09:43; Start 09/17/17 at 09:00 Lactobacillus Rhamnosus (Culturelle) 1 cap BID PO Last administered on 09:43; Start 09/17/17 at 09:00 Ceftriaxone Sodium 1 gm/ Dextrose 50 ml @ 100 mls/hr Q24H IV ; Start 09/17/17 at 09:00; Status UNV Ceftriaxone Sodium (Rocephin) 1 gm Q24H IVP Last administered on 09/18/17 09: 44; Start 09/17/17 at 09:15 Active Scripts Active Reported Diazepam 5 Mg Tablet 5 Mg PO BID Aspirin 325 Mg Tablet 325 Mg PO DAILY Cholestyramine Packet (Cholestyramine (With Sugar)) 4 Gm Powd.pack 2 Gm PO DAILY Donepezil Hcl 10 Mg Tablet 10 Mg PO DAILY Risperidone 0.5 Mg Tablet 0.75 Mg PO DAILY Carvedilol 12.5 Mg Tablet 12.5 Mg PO BIDWMEALS Losartan-Hctz 100-25 Mg Tab (Losartan/Hydrochlorothiazide) 1 Each Tablet 1 Tab PO DAILY Pravastatin Sodium 20 Mg Tablet 20 Mg PO QHS Amlodipine Besylate 2.5 Mg Tablet 2.5 Mg PO DAILY Vitals/I & O Vital Sign - Last 24 Hours 09/17/17 09/17/17 09/17/17 09/17/17 14:50 17:57 19:17 20:00 Temp 99.0 99.1 99.0 99.1 Pulse 84 84 79 Resp 18 20 B/P (MAP) 131/56 (81) 131/56 122/59 (80) Pulse Ox 95 97 O2 Delivery Nasal Cannula Nasal Cannula Nasal Cannula O2 Flow Rate 2.0 2.0 2.0 09/17/17 09/18/17 09/18/17 09/18/17 22:48 03:44 07:00 07:42 Temp 99.0 98.9 98.7 99.0 98.9 98.7 Pulse 76 74 85 Resp 18 18 19 B/P (MAP) 135/63 (87) 127/68 (87) 157/69 (98) Pulse Ox 96 95 91 94 O2 Delivery Nasal Cannula Nasal Cannula Nasal Cannula Nasal Cannula O2 Flow Rate 2.0 2.0 1.0 2.0 09/18/17 09/18/17 09/18/17 09/18/17 07:55 09:42 09:42 09:43 Pulse 85 85 85 B/P (MAP) 157/69 157/69 157/69 O2 Delivery Nasal Cannula O2 Flow Rate 2.0 09/18/17 11:00 Temp 99.0 99.0 Pulse 82 Resp 17 B/P (MAP) 128/60 (82) Pulse Ox 96 O2 Delivery Room Air Intake and Output 09/17/17 09/17/17 09/18/17 15:00 23:00 07:00 Intake Total 40 ml 550 ml 100 ml Output Total 1750 ml 400 ml Balance 40 ml -1200 ml -300 ml PIPO HENSON MD Sep 18, 2017 13:40
[2017-09-18 14:39] VITALS: BP 118/68
--- NOTE | 2017-09-18 16:45 | PDOC ---
KIERA CHI INSPECTOR PROCESS 09/18/17 1645: CARDIO Progress Notes Date and Time Date of Service 09/18/2017 Time of Evaluation 1620 Subjective Subjective: No Chest Pain, No shortness of breath, No Palpitations, Other ( feels better today) Vitals Vitals Vital Signs Date Time Temp Pulse Resp B/P (MAP) Pulse Ox O2 Delivery O2 Flow Rate FiO2 09/18/17 14:39 99.4 80 18 118/68 (85) 96 Room Air 99.4 09/18/17 07:55 2.0 Weight Weight [ ] Input and Output Intake and Output Intake and Output 09/18/17 07:00 Intake Total 690 ml Output Total 2150 ml Balance -1460 ml Intake Oral 650 ml Blood Product IV Normal Saline Flush 40 ml Output Urine Total 2150 ml # Bowel Movements 2 Laboratory Labs Laboratory Tests Test 09/18/17 05:00 09/18/17 05:30 09/18/17 14:00 Hemoglobin 8.6 g/dL (12.0-15.5) Hematocrit 28.6 % (36.0-47.0) Mean Corpuscular Hemoglobin Concent 30 g/dL (31-37) Vitamin B12 Level 376 pg/mL (247-911) Serum Folate > 24.00 ng/ml (3.2-20.0) Lactic Acid Level 2.9 mmol/L (0.4-2.0) Microbiology Micro Microbiology 09/16/17 Blood Culture - Preliminary, Resulted NO GROWTH AFTER 2 DAYS 09/16/17 Urine Culture - Preliminary, Resulted 09/16/17 Urine Culture Result 1 (IKE) - Preliminary, Resulted Physical Exam HEENT: Neck Supple W Full Motion Chest: Symmetric LUNGS: Clear to Auscultation Heart: S1S2, RRR (SR) Abdomen: Soft N/T Extremities: Other (1+ bilateral LE pitting edema) Neurology: alert, oriented, follow commands Assessment Assessment 1. Acute diastolic CHF: likely from significant anemia. EF and wall motion normal 2. Hypertension: now controlled 3. CKD3 4. Anemia: Hgb up to 8.6 post transfusion. GI following 5. UTI 6. Venous insufficiency 7. Moderate pulmonary HTN 8. PSVT: brief x2 episode with aberrancy Recommendations 1. Continue with diuretic therapy, transition to po tomorrow. 2. BMP and Mg. Replace K and Mg as warranted 3. Continue with coreg. KATRAPATI,JOHNATHAN S MD 09/18/17 2234: CARDIO Progress Notes Plan Plan Pt. seen and examined. Agree with above SECTION SUPERVISOR note. Continue diuresis. She is quite stoic and flat affect, consider neuro or outpt psych eval. Supportive care from CV perspsective. Poor insight into her condition. KIERA CHI APRN Sep 18, 2017 16:45 JOHNATHAN CHANDLER MD Sep 18, 2017 22:34
[2017-09-18 17:01] LABS: CALCIUM 8.1 mg/dL (8.5-10.1); CREATININE 1.1 mg/dL (0.6-1.0); GFR 47.4; MAGNESIUM 2.2 mg/dL (1.8-2.4); POTASSIUM 3.5 mmol/L (3.5-5.1)
[2017-09-18 18:58] LABS: NEG OBC FOB NEG; POS OBC FOB POS
--- NOTE | 2017-09-18 19:22 | PDOC2 ---
NEUROLOGY CONSULT Date of Admission Date of Admission DATE: 09/18/17 TIME: 19:08 Reason for Consult Reason for Consult: IMPRESSION: Abnormal jaw movements, ET likely. Metabolic encephalopathy. Psychiatric component. Worsening of gait instability. UTI PSVT Acute diastolic CHF. SOB Pleural effusion. HTN CKD HLD Leukocytosis. Sepsis? Lactic acidosis. LE wound. RECOMMENDATIONS/PLAN: EEG C-spine CT w/ contrast. Lab: see orders. Treat medical and cardiac diseases. OT/PT. Discussed with her at bedside. HISTORY OF THE PRESENT ILLNESS: 82-y-old female patient with above medical and cardiac diseases has been having abnormal jaw movement. Her stated she has been having chronic gait difficulties and instability for about 3 years, but progressive and now became worse. Cranial nerves were not involved. No urinary or bowel dysfunction. Past Medical History Cardiovascular: HTN, Hyperlipidemia Past Surgical History No major surgery recently. Family History HLD, Hypertension Social History Smoke: No ALCOHOL: none Drugs: None Please see above. ALLERGY: Reviewed. MEDICATIONS: Refer to MAR REVIEW OF SYSTEMS: Constitutional: No malnutrition, weight loss, cachexia. Head: No traumatic brain or head injury. Skin: No edema, or rash. Ear: No infection. Eyes: No vision loss or color blindness. Nose: No bleeding or purulent discharges. Hearing: Hearing decrease. Neck: No injury. Breast: No history of cancer, masses,or discharges. Cardiac: HTN, HLD. Pulmonary: SOB GI: No GI ulcer, GI bleeding. Urinary/genital: UTI. Endocrinologic: Obesity. Skeletomuscular: Gait instability. Neurological: see HP. Psychiatric: Denies drug use/abuse. Otherwise, not [id number] review of systems. PHYSICAL EXAMINATION: General appearance is in subacute distress. HEENT: Normocephalic and nontraumatic. Eyes, nose, ears, and throat are unremarkable. Neck is supple. No lymphadenopathy. No crepitus. Cardiovascular: S1, S2, regular rate and rhythm. Pulmonary: decreased to auscultation bilaterally. Abdomen: Bowel sounds are positive. Extremities: No rash, lesions, or edema. No restriction of range of motion NEUROLOGICAL EXAMINATION: Awake. Not oriented to time, place but knows person. PERRL. EOMI. CN: no focal findings. Muscle tone: within normal. Muscle strength: 4 DTR: 2 UE, 0-1 at knee. Plantar reflex: Neutral response bilaterally Gait: not examined in chair. Sensory exam: no acute abnormal findings. No acute cerebellar signs elicited. F-T-N test fine. Current Medications Current Medications Current Medications Furosemide (Lasix) 80 mg 1X ONCE IVP Last administered on 09/16/17 14:06; Start 09/16/17 at 14:00; Stop 09/16/17 at 14:01; Status DC Ondansetron HCl (Zofran) 4 mg PRN Q8HRS PRN IV NAUSEA/VOMITING; Start at 14:00; Stop 09/17/17 at 13:59; Status DC Fentanyl Citrate (Fentanyl 2ml Vial) 50 mcg PRN Q2HR PRN IV PAIN; Start at 14:00; Stop 09/17/17 at 13:59; Status DC Acetaminophen (Tylenol) 650 mg PRN Q4HRS PRN PO FEVER; Start 09/16/17 at 14:00 ; Stop 09/17/17 at 13:59; Status DC Nitroglycerin (Nitrostat) 0.4 mg PRN Q5MIN PRN SL CHEST PAIN; Start 09/16/17 at 14:00; Stop 09/17/17 at 13:59; Status DC Diphenhydramine HCl (Benadryl) 25 mg PRN QHS PRN PO INSOMNIA Last administered on 09/16/17 20:45; Start 09/16/17 at 14:15 Ceftriaxone Sodium 50 ml @ 100 mls/hr 1X ONCE IV ; Start 09/16/17 at 14:45; Stop 09/16/17 at 15:14; Status DC Amlodipine Besylate (Norvasc) 2.5 mg DAILY PO Last administered on 09/18/17 09:43; Start 09/17/17 at 09:00 Carvedilol (Coreg) 12.5 mg BIDWMEALS PO Last administered on 09/18/17 17:39; Start 09/17/17 at 08:00 Donepezil HCl (Aricept) 10 mg DAILY PO Last administered on 09/18/17 09:43; Start 09/17/17 at 09:00 Cholestyramine Resin (Questran Light) 4 gm DAILY PO Last administered on 09:43; Start 09/16/17 at 17:30 Losartan Potassium (Cozaar) 100 mg DAILY PO Last administered on 09/18/17 09: 42; Start 09/17/17 at 09:00 Atorvastatin Calcium (Lipitor) 5 mg QHS PO Last administered on 09/17/17 23: 04; Start 09/16/17 at 21:00 Risperidone (RisperDAL) 0.75 mg DAILY PO Last administered on 09/18/17 09:43 ; Start 09/16/17 at 17:30 Hydralazine HCl (Apresoline Inj) 10 mg PRN Q4HRS PRN IVP ELEVATED BP, SEE COMMENTS; Start 09/16/17 at 17:30 Furosemide (Lasix) 40 mg DAILY IVP Last administered on 09/18/17 09:44; Start 09/17/17 at 09:00; Stop 09/18/17 at 16:44; Status DC Amoxicillin/ Clavulanate Potassium (Augmentin 875/ 125mg) 1 tab BID PO Last administered on 09/16/17 20:44; Start 09/16/17 at 21:00; Stop 09/17/17 at 09 :00; Status DC Guaifenesin (Robitussin Dm) 10 ml PRN Q6HRS PRN PO COUGH Last administered on 09/16/17 20:44; Start 09/16/17 at 19:15 Albuterol Sulfate (Ventolin Neb Soln) 2.5 mg PRN Q4HRS PRN NEB SHORTNESS OF BREATH Last administered on 09/18/17 07:41; Start 09/16/17 at 19:15 Nystatin (Nystop) 1 yareli TID TP Last administered on 09/18/17 15:03; Start at 09:00 Potassium Chloride (Klor-Con) 40 meq 1X ONCE PO Last administered on 10:31; Start 09/17/17 at 09:00; Stop 09/17/17 at 09:01; Status DC Potassium Chloride (Klor-Con) 40 meq DAILYWBKFT PO Last administered on 09:44; Start 09/18/17 at 08:00 Ferrous Sulfate (Feosol) 325 mg DAILYWBKFT PO Last administered on 09/18/17 09:43; Start 09/17/17 at 11:30 Bacitracin 1 yareli BID TP Last administered on 09/18/17 09:43; Start 09/17/17 at 09:00 Lactobacillus Rhamnosus (Culturelle) 1 cap BID PO Last administered on 09:43; Start 09/17/17 at 09:00 Ceftriaxone Sodium 1 gm/ Dextrose 50 ml @ 100 mls/hr Q24H IV ; Start 09/17/17 at 09:00; Status UNV Ceftriaxone Sodium (Rocephin) 1 gm Q24H IVP Last administered on 09/18/17 09: 44; Start 09/17/17 at 09:15 Furosemide (Lasix) 40 mg DAILY PO ; Start 09/19/17 at 09:00 Active Scripts Active Reported Diazepam 5 Mg Tablet 5 Mg PO BID Aspirin 325 Mg Tablet 325 Mg PO DAILY Cholestyramine Packet (Cholestyramine (With Sugar)) 4 Gm Powd.pack 2 Gm PO DAILY Donepezil Hcl 10 Mg Tablet 10 Mg PO DAILY Risperidone 0.5 Mg Tablet 0.75 Mg PO DAILY Carvedilol 12.5 Mg Tablet 12.5 Mg PO BIDWMEALS Losartan-Hctz 100-25 Mg Tab (Losartan/Hydrochlorothiazide) 1 Each Tablet 1 Tab PO DAILY Pravastatin Sodium 20 Mg Tablet 20 Mg PO QHS Amlodipine Besylate 2.5 Mg Tablet 2.5 Mg PO DAILY Allergies Allergies: Coded Allergies: No Known Drug Allergies (Unverified , 09/16/17) Vitals VITALS Vital Signs Date Time Temp Pulse Resp B/P (MAP) Pulse Ox O2 Delivery O2 Flow Rate FiO2 09/18/17 17:39 87 118/68 09/18/17 14:39 99.4 18 96 Room Air 99.4 09/18/17 07:55 2.0 Labs Labs Laboratory Tests Test 09/16/17 19:10 09/17/17 02:08 09/17/17 05:30 09/17/17 09:30 Lactic Acid Level 2.6 mmol/L (0.4-2.0) 2.4 mmol/L (0.4-2.0) White Blood Count 13.1 x10^3/uL (4.0-11.0) Red Blood Count 3.10 x10^6/uL (3.50-5.40) Hemoglobin 6.7 g/dL (12.0-15.5) 7.3 g/dL (12.0-15.5) Hematocrit 22.3 % (36.0-47.0) 22.5 % (36.0-47.0) Mean Corpuscular Volume 72 fL (79-100) Mean Corpuscular Hemoglobin 22 pg (25-35) Mean Corpuscular Hemoglobin Concent 30 g/dL (31-37) 32 g/dL (31-37) Red Cell Distribution Width 18.1 % (11.5-14.5) Platelet Count 292 x10^3/uL (140-400) Neutrophils (%) (Auto) 81 % (31-73) Lymphocytes (%) (Auto) 9 % (24-48) Monocytes (%) (Auto) 9 % (0-9) Eosinophils (%) (Auto) 1 % (0-3) Basophils (%) (Auto) 0 % (0-3) Neutrophils # (Auto) 10.6 x10^3uL (1.8-7.7) Lymphocytes # (Auto) 1.2 x10^3/uL (1.0-4.8) Monocytes # (Auto) 1.1 x10^3/uL (0.0-1.1) Eosinophils # (Auto) 0.1 x10^3/uL (0.0-0.7) Basophils # (Auto) 0.1 x10^3/uL (0.0-0.2) Sodium Level 145 mmol/L (136-145) Potassium Level 3.2 mmol/L (3.5-5.1) Chloride Level 105 mmol/L (98-107) Carbon Dioxide Level 30 mmol/L (21-32) Anion Gap 10 (6-14) Blood Urea Nitrogen 26 mg/dL (7-20) Creatinine 1.2 mg/dL (0.6-1.0) Estimated GFR (Cockcroft-Gault) 42.9 BUN/Creatinine Ratio 22 (6-20) Glucose Level 127 mg/dL (70-99) Calcium Level 8.0 mg/dL (8.5-10.1) Magnesium Level 2.1 mg/dL (1.8-2.4) Iron Level 11 ug/dL (50-170) Total Iron Binding Capacity 479 ug/dL (250-450) Iron Saturation 2 % (15-34) Total Bilirubin 0.5 mg/dL (0.2-1.0) Aspartate Amino Transf (AST/SGOT) 16 U/L (15-37) Alanine Aminotransferase (ALT/SGPT) 30 U/L (14-59) Alkaline Phosphatase 102 U/L (46-116) Troponin I Quantitative 0.081 ng/mL (0.000-0.055) Total Protein 6.7 g/dL (6.4-8.2) Albumin 2.9 g/dL (3.4-5.0) Albumin/Globulin Ratio 0.8 (1.0-1.7) Test 09/18/17 05:00 09/18/17 05:30 09/18/17 14:00 09/18/17 18:30 Hemoglobin 8.6 g/dL (12.0-15.5) Hematocrit 28.6 % (36.0-47.0) Mean Corpuscular Hemoglobin Concent 30 g/dL (31-37) Sodium Level 146 mmol/L (136-145) Potassium Level 3.5 mmol/L (3.5-5.1) Chloride Level 105 mmol/L (98-107) Carbon Dioxide Level 27 mmol/L (21-32) Anion Gap 14 (6-14) Blood Urea Nitrogen 26 mg/dL (7-20) Creatinine 1.1 mg/dL (0.6-1.0) Estimated GFR (Cockcroft-Gault) 47.4 Glucose Level 114 mg/dL (70-99) Calcium Level 8.1 mg/dL (8.5-10.1) Magnesium Level 2.2 mg/dL (1.8-2.4) Creatine Kinase 87 U/L (26-192) Vitamin B12 Level 376 pg/mL (247-911) Serum Folate > 24.00 ng/ml (3.2-20.0) Lactic Acid Level 2.9 mmol/L (0.4-2.0) Stool Occult Blood Negative (NEG) Laboratory Tests Test 09/18/17 05:00 09/18/17 05:30 09/18/17 14:00 09/18/17 18:30 Hemoglobin 8.6 g/dL (12.0-15.5) Hematocrit 28.6 % (36.0-47.0) Mean Corpuscular Hemoglobin Concent 30 g/dL (31-37) Sodium Level 146 mmol/L (136-145) Potassium Level 3.5 mmol/L (3.5-5.1) Chloride Level 105 mmol/L (98-107) Carbon Dioxide Level 27 mmol/L (21-32) Anion Gap 14 (6-14) Blood Urea Nitrogen 26 mg/dL (7-20) Creatinine 1.1 mg/dL (0.6-1.0) Estimated GFR (Cockcroft-Gault) 47.4 Glucose Level 114 mg/dL (70-99) Calcium Level 8.1 mg/dL (8.5-10.1) Magnesium Level 2.2 mg/dL (1.8-2.4) Creatine Kinase 87 U/L (26-192) Vitamin B12 Level 376 pg/mL (247-911) Serum Folate > 24.00 ng/ml (3.2-20.0) Lactic Acid Level 2.9 mmol/L (0.4-2.0) Stool Occult Blood Negative (NEG) ILIANA OLSEN MD Sep 18, 2017 19:22
[2017-09-18 19:59] VITALS: BP 123/57
[2017-09-18] MEDS: ATORVASTATIN CALCIUM 10 MG TABLET. PO SCH (20:36)
[2017-09-18 22:47] VITALS: BP 139/66
[2017-09-19 03:55] VITALS: BP 125/69
[2017-09-19 06:20] LABS: HEMATOCRIT 27.9 % (36.0-47.0); HEMOGLOBIN 8.4 g/dL (12.0-15.5)
[2017-09-19 06:42] LABS: CALCIUM 8.3 mg/dL (8.5-10.1); CREATININE 1.2 mg/dL (0.6-1.0); GFR 42.9; POTASSIUM 3.4 mmol/L (3.5-5.1)
[2017-09-19 07:00] VITALS: BP 148/67
--- NOTE | 2017-09-19 08:23 | RAD ---
Indication: Gait instability. Technique: Axial images and coronal and sagittal reformatted images are provided. No comparison is available. One or more of the following individualized dose reduction techniques were utilized for this examination: 1. Automated exposure control 2. Adjustment of the mA and/or kV according to patient size 3. Use of iterative reconstruction technique Findings: There is no fracture or dislocation. 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 Prevertebral soft tissues are within normal limits. Craniovertebral junction is unremarkable. There are disc osteophyte complexes, minimal, most notably at C3-C4 and C5-C6. There is facet hypertrophy, greater on the left and greatest at C4-C5 and C5-C6. There is no definite high-grade canal stenosis. There is probably mild foraminal narrowing at C4-C5 and C5-C6. There is minimal presumed apical scarring. There are carotid artery calcifications, mild. There is maxillary mucosal thickening. Subcentimeter lymph nodes are presumed reactive. Partially included is a right pleural effusion. Impression: Mild degenerative changes in the cervical spine.
[2017-09-19] MEDS: CHOLESTYRAMINE/ASPARTAME 4 GM PACKET PO SCH (08:50)
[2017-09-19] MEDS: FERROUS SULFATE 325 MG TABLET. PO SCH (08:50)
[2017-09-19] MEDS: POTASSIUM CHLORIDE 20 MEQ TABLET.ER. PO SCH (08:51)
[2017-09-19] MEDS: amLODIPine BESYLATE 2.5 MG TABLET PO SCH (08:51)
[2017-09-19] MEDS: DONEPEZIL HCL 10 MG TABLET. PO SCH (08:52)
[2017-09-19] MEDS: LOSARTAN POTASSIUM 50 MG TABLET. PO SCH (08:54)
[2017-09-19] MEDS: LACTOBACILLUS RHAMNOSUS GG 1 CAPSULE. PO SCH (08:54)
[2017-09-19] MEDS: CARVEDILOL 12.5 MG TABLET. PO SCH (08:55)
[2017-09-19] MEDS ORDERED: FUROSEMIDE 40 MG TABLET. PO SCH (09:00)
[2017-09-19] MEDS: cefTRIAXone IV Push 1 GM VIAL. IVP SCH (09:37)
[2017-09-19] MEDS: BACITRACIN TOPICAL OINT 14GM TUBE. TP SCH (09:38)
[2017-09-19] MEDS: NYSTATIN TOPICAL POWDER 15GM BOTTLE. TP SCH (09:38)
[2017-09-19 10:58] VITALS: BP 87/46
[2017-09-19] MEDS ORDERED: POTA10CA2 PO (11:11)
[2017-09-19] MEDS ORDERED: FURO-69 PO (11:11)
--- NOTE | 2017-09-19 11:15 | PDOC3 ---
Discharge Summary Visit Information Date of Admission: Sep 16, 2017 Date of Discharge: Sep 19, 2017 Admitting Diagnosis Comment: New-onset CHF Bilateral pitting edema, lymphedema Leg wounds Hypertension Hypertensive urgency present on admission Respiratory failure secondary to CHF Dyslipidemia on a statin AK I on CKD possibly stage III to 4 Microcytic anemia, PEDRITO Sepsis POA Deconditioning GEn weakness Frailty FUll code HIgh fall risk Final Diagnosis Problems Medical Problems: (1) Anemia Status: Acute (2) CHF exacerbation Status: Acute (3) Pleural effusion Status: Acute Brief Hospital Course Allergies Allergies Coded Allergies Type Severity Reaction Last Updated Verified No Known Drug Allergies 09/16/17 No Vital Signs Vital Signs Date Time Temp Pulse Resp B/P (MAP) Pulse Ox O2 Delivery O2 Flow Rate FiO2 09/19/17 10:58 99.1 78 22 87/46 (60) 93 Nasal Cannula 2.0 99.1 Lab Results Laboratory Tests Test 09/18/17 05:00 09/18/17 05:30 09/18/17 14:00 09/18/17 18:30 Hemoglobin 8.6 g/dL (12.0-15.5) Hematocrit 28.6 % (36.0-47.0) Mean Corpuscular Hemoglobin Concent 30 g/dL (31-37) Sodium Level 146 mmol/L (136-145) Potassium Level 3.5 mmol/L (3.5-5.1) Chloride Level 105 mmol/L (98-107) Carbon Dioxide Level 27 mmol/L (21-32) Anion Gap 14 (6-14) Blood Urea Nitrogen 26 mg/dL (7-20) Creatinine 1.1 mg/dL (0.6-1.0) Estimated GFR (Cockcroft-Gault) 47.4 Glucose Level 114 mg/dL (70-99) Calcium Level 8.1 mg/dL (8.5-10.1) Magnesium Level 2.2 mg/dL (1.8-2.4) Creatine Kinase 87 U/L (26-192) Vitamin B12 Level 376 pg/mL (247-911) 25-Hydroxy Vitamin D Total 9.0 ng/mL (30-100) Serum Folate > 24.00 ng/ml (3.2-20.0) Lactic Acid Level 2.9 mmol/L (0.4-2.0) Stool Occult Blood Negative (NEG) Test 09/19/17 05:50 Hemoglobin 8.4 g/dL (12.0-15.5) Hematocrit 27.9 % (36.0-47.0) Mean Corpuscular Hemoglobin Concent 30 g/dL (31-37) Sodium Level 143 mmol/L (136-145) Potassium Level 3.4 mmol/L (3.5-5.1) Chloride Level 105 mmol/L (98-107) Carbon Dioxide Level 32 mmol/L (21-32) Anion Gap 6 (6-14) Blood Urea Nitrogen 25 mg/dL (7-20) Creatinine 1.2 mg/dL (0.6-1.0) Estimated GFR (Cockcroft-Gault) 42.9 Glucose Level 126 mg/dL (70-99) Calcium Level 8.3 mg/dL (8.5-10.1) Laboratory Tests Test 09/18/17 14:00 09/18/17 18:30 09/19/17 05:50 Lactic Acid Level 2.9 mmol/L (0.4-2.0) Stool Occult Blood Negative (NEG) Hemoglobin 8.4 g/dL (12.0-15.5) Hematocrit 27.9 % (36.0-47.0) Mean Corpuscular Hemoglobin Concent 30 g/dL (31-37) Sodium Level 143 mmol/L (136-145) Potassium Level 3.4 mmol/L (3.5-5.1) Chloride Level 105 mmol/L (98-107) Carbon Dioxide Level 32 mmol/L (21-32) Anion Gap 6 (6-14) Blood Urea Nitrogen 25 mg/dL (7-20) Creatinine 1.2 mg/dL (0.6-1.0) Estimated GFR (Cockcroft-Gault) 42.9 Glucose Level 126 mg/dL (70-99) Calcium Level 8.3 mg/dL (8.5-10.1) Brief Hospital Course Ms. Hand is a 82 old female, who lives at home with , admitted for new onset CHF manifested as shortness of breath and bilateral lower extremity pitting edema up to 3 and 4. Admitted CVC, comanage with cardiology. Echocardiogram was okay. Had diuresis IV Lasix with improvement of symptoms. We'll go home with on by mouth Lasix 20 mg qD daily along with KCl. 20 meqs PO qD. She was on Lasix 40 and KCl 40. I'm afraid of over diuresing her so i discharge on 20 KCl and 20 Lasix once a day for 2 weeks. Follow-up with PCP. Did write for a BMP in 2 weeks time Discussed with [facility] TRAN Discharge Information Condition at Discharge: Improved, Stable Disposition/Orders: D/C to Home w/ HH Scheduled Amlodipine Besylate (Amlodipine Besylate), 2.5 MG PO DAILY, (Reported) Aspirin (Aspirin), 325 MG PO DAILY, (Reported) Carvedilol (Carvedilol), 12.5 MG PO BIDWMEALS, (Reported) Cholestyramine (With Sugar) (Cholestyramine Packet), 2 GM PO DAILY, (Reported) Diazepam (Diazepam), 5 MG PO BID, (Reported) Donepezil Hcl (Donepezil Hcl), 10 MG PO DAILY, (Reported) Losartan/Hydrochlorothiazide (Losartan-Hctz 100-25 Mg Tab), 1 TAB PO DAILY, ( Reported) Pravastatin Sodium (Pravastatin Sodium), 20 MG PO QHS, (Reported) Risperidone (Risperidone), 0.75 MG PO DAILY, (Reported) PIPO HENSON MD Sep 19, 2017 11:15
[2017-09-19 11:53] VITALS: BP 123/58
--- NOTE | 2017-09-19 11:56 | PDOC ---
[facility]P 09/19/17 1155: CARDIO Progress Notes Date and Time Date of Service 09/19/2015 Time of Evaluation 1130 Subjective Subjective: No Chest Pain, No shortness of breath, No Palpitations Vitals Vitals Vital Signs Date Time Temp Pulse Resp B/P (MAP) Pulse Ox O2 Delivery O2 Flow Rate FiO2 09/19/17 10:58 99.1 78 22 87/46 (60) 93 Nasal Cannula 2.0 99.1 Weight Weight [ ] Input and Output Intake and Output Intake and Output 09/19/17 07:00 Intake Total 1630 ml Output Total 1200 ml Balance 430 ml Intake Oral 1630 ml Output Urine Total 1200 ml # Voids 1 # Bowel Movements 1 Laboratory Labs Laboratory Tests Test 09/18/17 14:00 09/18/17 18:30 09/19/17 05:50 Lactic Acid Level 2.9 mmol/L (0.4-2.0) Stool Occult Blood Negative (NEG) Hemoglobin 8.4 g/dL (12.0-15.5) Hematocrit 27.9 % (36.0-47.0) Mean Corpuscular Hemoglobin Concent 30 g/dL (31-37) Sodium Level 143 mmol/L (136-145) Potassium Level 3.4 mmol/L (3.5-5.1) Chloride Level 105 mmol/L (98-107) Carbon Dioxide Level 32 mmol/L (21-32) Anion Gap 6 (6-14) Blood Urea Nitrogen 25 mg/dL (7-20) Creatinine 1.2 mg/dL (0.6-1.0) Estimated GFR (Cockcroft-Gault) 42.9 Glucose Level 126 mg/dL (70-99) Calcium Level 8.3 mg/dL (8.5-10.1) Microbiology Micro Microbiology 09/16/17 Blood Culture - Preliminary, Resulted NO GROWTH AFTER 2 DAYS 09/16/17 Urine Culture - Final, Complete 09/16/17 Urine Culture Result 1 (IKE) - Final, Complete 09/16/17 Antimicrobic Susceptibility - Final, Complete Physical Exam HEENT: Neck Supple W Full Motion Chest: Symmetric LUNGS: Clear to Auscultation Heart: S1S2, RRR (SR) Abdomen: Soft N/T Extremities: No Calf Tenderness, Other (trace LE edema) Neurology: alert, oriented, follow commands Assessment Assessment 1. Acute diastolic CHF: likely from significant anemia. EF and wall motion normal. compensated 2. Hypertension: controlled 3. CKD3 4. Anemia: Hgb up to 8.4 post transfusion. GI following 5. UTI 6. Venous insufficiency 7. Moderate pulmonary HTN 8. PSVT: brief x2 episode with aberrancy, no further episodes Recommendations 1. Continue with diuretic therapy, transition to po tomorrow. 2. Continue with current regimen 4. Follow up in 4 weeks JOHNATHAN CHANDLER MD 09/19/17 2351: CARDIO Progress Notes Plan Plan Pt. seen and examined. Agree with above CATHEAD OPERATOR note. Supportive care. KIERA CHI APRN Sep 19, 2017 11:55 JOHNATHAN CHANDLER MD Sep 19, 2017 23:51
[2017-09-19] MEDS ORDERED: BACI28.34 TP (13:55)
[2017-09-19] MEDS ORDERED: risperiDONE 0.25 MG TABLET. PO SCH (21:00)
== END 2017-09-19 14:51 | disposition home or self-care (01) | DRG 871 ==
LOC: ER 12:04 → 2 SOUTH 13:47
PROVIDERS: ADMIT Internal Medicine; ATTEND Internal Medicine
PROC: 30233N1 Transfusion of Nonautologous Red Blood Cells into Peripheral Vein, Percutaneous Approach (ICD-10-PCS; principal; 2017-09-17)
DX: A41.9 Sepsis, unspecified organism (principal); I50.33 Acute on chronic diastolic (congestive) heart failure; J96.90 Respiratory failure, unspecified, unspecified whether with hypoxia or hypercapnia; G93.41 Metabolic encephalopathy; E87.2 Acidosis; I13.0 Hypertensive heart and chronic kidney disease with heart failure and stage 1 through stage 4 chronic kidney disease, or unspecified chronic kidney disease; K62.5 Hemorrhage of anus and rectum; N39.0 Urinary tract infection, site not specified; N18.3 Chronic kidney disease, stage 3 (moderate); D50.0 Iron deficiency anemia secondary to blood loss (chronic); E78.5 Hyperlipidemia, unspecified; E87.6 Hypokalemia; F32.9 Major depressive disorder, single episode, unspecified; I27.20 Pulmonary hypertension, unspecified; I16.0 Hypertensive urgency; I87.2 Venous insufficiency (chronic) (peripheral); I83.90 Asymptomatic varicose veins of unspecified lower extremity; I89.0 Lymphedema, not elsewhere classified; K59.00 Constipation, unspecified; Z79.82 Long term (current) use of aspirin; Z82.49 Family history of ischemic heart disease and other diseases of the circulatory system; Z90.49 Acquired absence of other specified parts of digestive tract; Z91.81 History of falling; Z98.41 Cataract extraction status, right eye; Z98.42 Cataract extraction status, left eye; Z79.899 Other long term (current) drug therapy
CPT/HCPCS: 36415; 71010; 72125; 76770; 80048; 80053; 81001; 82274; 82306; 82550; 82607; 82746; 83540; 83550; 83605; 83690; 83735; 83880; 84443; 84484; 85014; 85018; 85025; 85045; 86850; 86900; 86901; 86920; 87040; 87086; 87186; 93005; 93306; 94640; 94760; 95816; 96374; J0696; J1940; J7613; P9016; Q0163; 97140; 97535; 99285-25

== ENCOUNTER → 2017-09-25 | Outpatient (CLI) | payer BC ==
[2017-09-19 11:53] VITALS: BP 123/58
[~2017-09-25] MED LIST: AMLO2.5T PO; ASPI325T8 PO; BACI28.34 TP; CARV12.52 PO; CHOL4POW2 PO; DIAZ5TAB4 PO; DONE10TA7 PO; FURO-69 PO; LOSA1TAB22 PO; POTA10CA2 PO; PRAV20TA2 PO; RISP0.5T3 PO
== END | disposition home or self-care (01) ==
LOC: PMGWOUND 08:54
PROVIDERS: ATTEND Emergency Medicine Undersea and Hyperbaric Medicine
DX: I87.311 Chronic venous hypertension (idiopathic) with ulcer of right lower extremity (principal); L97.211 Non-pressure chronic ulcer of right calf limited to breakdown of skin; I13.0 Hypertensive heart and chronic kidney disease with heart failure and stage 1 through stage 4 chronic kidney disease, or unspecified chronic kidney disease; N18.9 Chronic kidney disease, unspecified; I50.33 Acute on chronic diastolic (congestive) heart failure; E78.00 Pure hypercholesterolemia, unspecified; F32.9 Major depressive disorder, single episode, unspecified; I89.0 Lymphedema, not elsewhere classified; Z86.73 Personal history of transient ischemic attack (TIA), and cerebral infarction without residual deficits
CPT/HCPCS: 99205

== ENCOUNTER → 2017-10-16 | Outpatient (CLI) | payer BC | END | disposition home or self-care (01) | LOC: PMGWOUND 08:57 | DX: I87.311 Chronic venous hypertension (idiopathic) with ulcer of right lower extremity (principal); L97.211 Non-pressure chronic ulcer of right calf limited to breakdown of skin; G30.9 Alzheimer's disease, unspecified; F02.80 Dementia in other diseases classified elsewhere, unspecified severity, without behavioral disturbance, psychotic disturbance, mood disturbance, and anxiety; I13.0 Hypertensive heart and chronic kidney disease with heart failure and stage 1 through stage 4 chronic kidney disease, or unspecified chronic kidney disease; N18.3 Chronic kidney disease, stage 3 (moderate); I50.33 Acute on chronic diastolic (congestive) heart failure; E78.00 Pure hypercholesterolemia, unspecified; F32.9 Major depressive disorder, single episode, unspecified; I89.0 Lymphedema, not elsewhere classified; Z86.73 Personal history of transient ischemic attack (TIA), and cerebral infarction without residual deficits | CPT/HCPCS: 99213 ==

== ENCOUNTER → 2017-12-25 | Outpatient (CLI) | payer BC | END | disposition home or self-care (01) | LOC: PMGWOUND 09:23 | DX: I87.311 Chronic venous hypertension (idiopathic) with ulcer of right lower extremity (principal); G30.9 Alzheimer's disease, unspecified; L97.211 Non-pressure chronic ulcer of right calf limited to breakdown of skin; F02.80 Dementia in other diseases classified elsewhere, unspecified severity, without behavioral disturbance, psychotic disturbance, mood disturbance, and anxiety; I13.0 Hypertensive heart and chronic kidney disease with heart failure and stage 1 through stage 4 chronic kidney disease, or unspecified chronic kidney disease; N18.3 Chronic kidney disease, stage 3 (moderate); I50.33 Acute on chronic diastolic (congestive) heart failure; E78.00 Pure hypercholesterolemia, unspecified; F32.9 Major depressive disorder, single episode, unspecified; I89.0 Lymphedema, not elsewhere classified; Z86.73 Personal history of transient ischemic attack (TIA), and cerebral infarction without residual deficits | CPT/HCPCS: 99214 ==

== ENCOUNTER → 2018-01-01 | Outpatient (CLI) | payer BC | END | disposition home or self-care (01) | LOC: PMGWOUND 09:23 | DX: I87.311 Chronic venous hypertension (idiopathic) with ulcer of right lower extremity (principal); L97.211 Non-pressure chronic ulcer of right calf limited to breakdown of skin; G30.9 Alzheimer's disease, unspecified; F02.80 Dementia in other diseases classified elsewhere, unspecified severity, without behavioral disturbance, psychotic disturbance, mood disturbance, and anxiety; I13.0 Hypertensive heart and chronic kidney disease with heart failure and stage 1 through stage 4 chronic kidney disease, or unspecified chronic kidney disease; N18.3 Chronic kidney disease, stage 3 (moderate); I50.33 Acute on chronic diastolic (congestive) heart failure; E78.00 Pure hypercholesterolemia, unspecified; F32.9 Major depressive disorder, single episode, unspecified; I89.0 Lymphedema, not elsewhere classified; Z86.73 Personal history of transient ischemic attack (TIA), and cerebral infarction without residual deficits | CPT/HCPCS: 99214 ==

== ENCOUNTER 2018-06-09 15:25 | Inpatient (IN) | payer BC ==
[~2018-06-09] VITALS: Ht 160 cm; Wt 78.7 kg
[~2018-06-09 15:25] MED LIST changes: -AMLO2.5T PO; +AMLO2.5T3 PO; +FURO40TA4 PO; +LOSA100T7 PO
[2018-06-09] MEDS ORDERED: NITROGLYCERIN OINT 1 GM PACKET. TP ONE (16:30)
--- NOTE | 2018-06-09 16:40 | PHYS DOC ---
Past Medical History Past Medical History: Hypertension Additional Past Medical Histor: SHORT TERM MEMORY LOSS Past Surgical History: Cholecystectomy, Knee Replacement, Tonsillectomy Additional Past Surgical Histo: L KNEE REPLACEMENT. Alcohol Use: None Drug Use: None Adult General Chief Complaint Chief Complaint: LOWER EXTREMITY EDEMA HPI HPI Patient is a 83 year old female who presents with dyspnea. The patient is accompanied by her who gives much of the history. The patient has had worsening dyspnea and decreased appetite over the last 5-7 days. She had worsening edema of the lower extremities as well. Today, she went to see her primary care physician and was noted to be hypoxic and have a likely pleural effusion. The patient denies feeling dyspneic although she had an oxygen saturation on room air in the low to mid 80s. On arrival to the ER, she continues to deny complaints. She has no chest pain. She does not complain of dyspnea. Her oxygen saturations are much improved on 2 L of oxygen per nasal cannula. The patient does complain of edema over the last week in the lower extremities which has been worsening. No fever or chills. Review of Systems Review of Systems Constitutional: Denies fever or chills Eyes: Denies change in vision HENT: Denies nasal congestion Respiratory: dyspnea Cardiovascular: No additional information GI: Denies abdominal pain, nausea : Denies dysuria Musculoskeletal: Denies back pain Integument: Denies rash or skin lesions Neurologic: Denies headache All other systems were reviewed and found to be within normal limits, except as documented in this note. Current Medications Current Medications Current Medications Medications (Trade) Dose Ordered Sig/Kerrie Start Time Stop Time Status Last Admin Dose Admin Acetaminophen (Tylenol) 650 mg PRN Q4HRS PRN 06/09/18 17:30 06/10/18 17:29 Nitroglycerin (Nitro-Bid Oint) 1 inch 1X ONCE 06/09/18 16:30 06/09/18 16:32 DC 06/09/18 17:37 1 INCH Ondansetron HCl (Zofran) 4 mg PRN Q8HRS PRN 06/09/18 17:30 06/10/18 17:29 Piperacillin Sod/ Tazobactam Sod (Zosyn Per Pharmacy) 1 each PRN DAILY PRN 06/09/18 17:30 UNV Vancomycin HCl (Vanco Per Pharmacy) 1 each PRN DAILY PRN 06/09/18 17:30 UNV Allergies Allergies Allergies Coded Allergies Type Severity Reaction Last Updated Verified No Known Drug Allergies 09/16/17 No Physical Exam Physical Exam Constitutional: Well developed, well nourished, no acute distress, non-toxic appearance HENT: Normocephalic, atraumatic, bilateral external ears normal, Eyes: PERRLA, EOMI, conjunctiva normal Neck: Normal range of motion, no tenderness Cardiovascular:Heart rate regular rhythm Lungs & Thorax: diminished breath sounds with crackles heard bilaterally, dullness over bases bilaterally Abdomen: Bowel sounds normal, soft, no tenderness Skin: Warm, dry Extremities: edema bilateral LE's. 2+ dp pulses present Neurologic: Alert and oriented X 3 Psychologic: Affect normal Current Patient Data Vital Signs Vital Signs Date Time Temp Pulse Resp B/P (MAP) Pulse Ox O2 Delivery O2 Flow Rate FiO2 06/09/18 16:46 98.9 78 20 199/88 (125) 88 Room Air 98.9 Lab Values Laboratory Tests Test 06/09/18 16:25 White Blood Count 12.4 x10^3/uL (4.0-11.0) H Red Blood Count 4.28 x10^6/uL (3.50-5.40) Hemoglobin 10.3 g/dL (12.0-15.5) L Hematocrit 32.9 % (36.0-47.0) L Mean Corpuscular Volume 77 fL (79-100) L Mean Corpuscular Hemoglobin 24 pg (25-35) L Mean Corpuscular Hemoglobin Concent 31 g/dL (31-37) Red Cell Distribution Width 18.7 % (11.5-14.5) H Platelet Count 271 x10^3/uL (140-400) Neutrophils (%) (Auto) 80 % (31-73) H Lymphocytes (%) (Auto) 11 % (24-48) L Monocytes (%) (Auto) 8 % (0-9) Eosinophils (%) (Auto) 0 % (0-3) Basophils (%) (Auto) 1 % (0-3) Neutrophils # (Auto) 10.0 x10^3uL (1.8-7.7) H Lymphocytes # (Auto) 1.4 x10^3/uL (1.0-4.8) Monocytes # (Auto) 1.0 x10^3/uL (0.0-1.1) Eosinophils # (Auto) 0.0 x10^3/uL (0.0-0.7) Basophils # (Auto) 0.1 x10^3/uL (0.0-0.2) Prothrombin Time 14.8 SEC (11.7-14.0) H Prothrombin Time INR 1.2 (0.8-1.1) H PTT 34 SEC (24-38) Sodium Level 142 mmol/L (136-145) Potassium Level 4.0 mmol/L (3.5-5.1) Chloride Level 106 mmol/L (98-107) Carbon Dioxide Level 29 mmol/L (21-32) Anion Gap 7 (6-14) Blood Urea Nitrogen 23 mg/dL (7-20) H Creatinine 1.7 mg/dL (0.6-1.0) H Estimated GFR (Cockcroft-Gault) 28.6 Glucose Level 136 mg/dL (70-99) H Calcium Level 8.7 mg/dL (8.5-10.1) Total Bilirubin 0.5 mg/dL (0.2-1.0) Direct Bilirubin 0.1 mg/dL (0.0-0.2) Aspartate Amino Transferase (AST) 22 U/L (15-37) Alanine Aminotransferase (ALT) 25 U/L (14-59) Alkaline Phosphatase 147 U/L (46-116) H Troponin I Quantitative 0.058 ng/mL (0.000-0.055) YU-Lcb-N-Type Natriuretic Peptide 3681 pg/mL (0-449) H Total Protein 7.2 g/dL (6.4-8.2) Albumin 3.3 g/dL (3.4-5.0) L Procalcitonin < 0.10 ng/mL (0.00-0.10) Laboratory Tests 06/09/18 16:25 Laboratory Tests 06/09/18 16:25 EKG EKG No acute changes suspicious for PR. Interpretation Time: 17:05 Radiology/Procedures Radiology/Procedures Findings: Single view of the chest is submitted. There is moderate to large right pleural effusion, at least small left pleural effusion overall greater than previously. There is adjacent airspace opacity. There is no pneumothorax. Pericardial cardiac silhouette is again enlarged. Impression: 1. There are right greater than left pleural effusions greater than previous January 2018 exam, adjacent airspace opacity. Pericardial cardiac silhouette is enlarged. Findings may be due to left ventricular failure. Course & Med Decision Making Course & Med Decision Making Pertinent Labs and Imaging studies reviewed. (See chart for details) Patient was evaluated in the emergency department for likely heart failure versus reaccumulation of pleural effusion. She had a similar presentation in January of this year when she did require thoracentesis which was completed by Dr. West. Her chest x-ray as well as physical exam was consistent with pulmonary edema as well as bilateral pleural effusions. Troponin was mildly elevated at 0.58. This is consistent with previous troponins which are completed during her last admission in January. Her EKG did not have acute ST elevation. She does have elevation of creatinine 1.7. She has had intermittently elevated creatinines in the past. The most recent available result was normal range. 1.7 is the highest found in the record. Nephrology consult is requested. I discussed this patient with Dr. Khan for admission. The patient continued to maintain her oxygen saturations above 95% on 2 L per nasal cannula although she was mildly dyspneic objectively, she continued to deny subjective shortness of breath. In the emergency department, 1 inch of nitroglycerin paste was placed on the patient. 40 mg of Lasix was ordered. Dragon Disclaimer Dragon Disclaimer This electronic medical record was generated, in whole or in part, using a voice recognition dictation system. Departure Departure Referrals: LU SOUSA Jr, MD (PCP) MARY GRIFFIN DO Jun 09, 2018 16:40
[2018-06-09 16:48] LABS: BASO # 0.1 x10^3/uL (0.0-0.2); BASO % 1 % (0-3); EOS % 0 % (0-3); HEMATOCRIT 32.9 % (36.0-47.0); HEMOGLOBIN 10.3 g/dL (12.0-15.5); LYMPH # 1.4 x10^3/uL (1.0-4.8); LYMPH % 11 % (24-48); MEAN CORPUSCULAR HEMOGLOBIN 24 pg (25-35); MEAN CORPUSCULAR HGB CONC 31 g/dL (31-37); MEAN CORPUSCULAR VOLUME 77 fL (79-100); MONO % 8 % (0-9); NEUT % 80 % (31-73); PLATELET COUNT 271 x10^3/uL (140-400); RED BLOOD COUNT 4.28 x10^6/uL (3.50-5.40); RED CELL DISTRIBUTION WIDTH 18.7 % (11.5-14.5); WHITE BLOOD COUNT 12.4 x10^3/uL (4.0-11.0)
[2018-06-09 16:52] LABS: PROTHROMBIN TIME PATIENT 14.8 SEC (11.7-14.0)
[2018-06-09 16:54] LABS: CALCIUM 8.7 mg/dL (8.5-10.1); CREATININE 1.7 mg/dL (0.6-1.0); GFR 28.6
[2018-06-09 17:00] LABS: ALBUMIN 3.3 g/dL (3.4-5.0); DIRECT BILIRUBIN 0.1 mg/dL (0.0-0.2); TOTAL BILIRUBIN 0.5 mg/dL (0.2-1.0); TOTAL PROTEIN 7.2 g/dL (6.4-8.2)
--- NOTE | 2018-06-09 17:29 | RAD ---
PORTABLE CHEST 1V History: Dyspnea, fluid overload, recent history of effusion Comparison: January 12, 2018 Findings: Single view of the chest is submitted. There is moderate to large right pleural effusion, at least small left pleural effusion overall greater than previously. There is adjacent airspace opacity. There is no pneumothorax. Pericardial cardiac silhouette is again enlarged. Impression: 1. There are right greater than left pleural effusions greater than previous January 2018 exam, adjacent airspace opacity. Pericardial cardiac silhouette is enlarged. Findings may be due to left ventricular failure. Electronically signed by: George Conley MD (06/09/2018 5:26 PM) [id number]
[2018-06-09] MEDS ORDERED: ONDANSETRON PF 4 MG/2 ML VIAL. IV PRN (17:30)
[2018-06-09] MEDS ORDERED: PIP/TAZO PER PHARMACY MC PRN (17:30)
[2018-06-09] MEDS ORDERED: ACETAMINOPHEN 325 MG TABLET. PO PRN (17:30)
[2018-06-09] MEDS ORDERED: PIPERACILLIN/TAZOBACTAM 3.375 GM in IV NORMAL SALINE 50ML 50 ML IV ONE (18:00)
[2018-06-09] MEDS ORDERED: FUROSEMIDE 40 MG/4 ML VIAL. IVP ONE (18:30)
[2018-06-09] MEDS ORDERED: VANCOMYCIN 2 GM in IV NORMAL SALINE 500ML BAG 500 ML IV ONE (18:30)
[2018-06-09] MEDS ORDERED: FUROSEMIDE 20 MG/2 ML VIAL. IVP ONE (19:00)
[2018-06-09] MEDS: VANCOMYCIN PER PHARMACY MC PRN ×2 (19:36→19:43)
[2018-06-09 19:45] VITALS: BP 172/72
[2018-06-09 23:00] VITALS: BP 147/74
[2018-06-09] MEDS: PIPERACILLIN/TAZOBACTAM 2.25 GM in IV NORMAL SALINE 50ML 50 ML IV SCH (23:27)
[2018-06-10 03:00] VITALS: BP 115/59
[2018-06-10] MEDS: PIPERACILLIN/TAZOBACTAM 2.25 GM in IV NORMAL SALINE 50ML 50 ML IV SCH ×3 (05:51→18:29)
[2018-06-10 06:12] LABS: BASO # 0.1 x10^3/uL (0.0-0.2); BASO % 1 % (0-3); EOS # 0.1 x10^3/uL (0.0-0.7); EOS % 1 % (0-3); HEMATOCRIT 29.7 % (36.0-47.0); HEMOGLOBIN 9.1 g/dL (12.0-15.5); LYMPH # 1.2 x10^3/uL (1.0-4.8); LYMPH % 11 % (24-48); MEAN CORPUSCULAR HEMOGLOBIN 24 pg (25-35); MEAN CORPUSCULAR HGB CONC 31 g/dL (31-37); MEAN CORPUSCULAR VOLUME 77 fL (79-100); MONO # 0.9 x10^3/uL (0.0-1.1); MONO % 8 % (0-9); NEUT # 8.8 x10^3uL (1.8-7.7); NEUT % 80 % (31-73); PLATELET COUNT 208 x10^3/uL (140-400); RED BLOOD COUNT 3.86 x10^6/uL (3.50-5.40); RED CELL DISTRIBUTION WIDTH 18.5 % (11.5-14.5)
--- NOTE | 2018-06-10 06:23 | EKG ---
[facility] [address] [place] [address] Test Date: 2018-06-09 Test Time: 16:42:34 Pat Name: CHANTEL FOFANA Department: Room: 254 1 Gender: F Barrel Straightener: : 1935 Requested By: MARY GRIFFIN Order Number: [id number] Reading MD: Al Thomson MD Measurements Intervals [place] Rate: 76 P: ND: QRS: -11 QRSD: 82 T: 138 QT: 386 QTc: 434 Interpretive Statements PROBABLE SR CANNOT RULE OUT INFERIOR INFARCT, OLD Electronically Signed On 06-11-2018 8:44:43 CDT by Al Thomson MD
[2018-06-10 06:50] LABS: CALCIUM 8.3 mg/dL (8.5-10.1); CREATININE 1.8 mg/dL (0.6-1.0); GFR 26.8; POTASSIUM 3.5 mmol/L (3.5-5.1)
[2018-06-10 07:00] VITALS: BP 120/54
--- NOTE | 2018-06-10 08:39 | RAD ---
Portable chest, 06/10/2018: HISTORY: Congestive heart failure, effusion Comparison is made to yesterday's study. Right chest opacities continue to worsen compatible with a combination of pleural fluid and underlying infiltrate and atelectasis. The pulmonary vascularity on the right is poorly defined. There is a small left pleural effusion with underlying basilar atelectasis similar to yesterday's study. The pulmonary vascularity on the left does not appear to be congested. The heart is enlarged, although the cardiac margins are partially obscured by the pleural fluid. IMPRESSION: 1. Worsening large right pleural effusion with underlying atelectasis/infiltrate. 2. Unchanged small left pleural effusion. Electronically signed by: Domingo Marti MD (06/10/2018 8:35 AM) [facility]
[2018-06-10] MEDS ORDERED: risperiDONE 0.25 MG TABLET. PO SCH (10:30)
[2018-06-10 10:45] VITALS: BP 146/63
[2018-06-10] MEDS: DONEPEZIL HCL 10 MG TABLET. PO SCH (10:56)
[2018-06-10] MEDS: CARVEDILOL 12.5 MG TABLET. PO SCH ×2 (10:57→18:29)
[2018-06-10] MEDS: LOSARTAN POTASSIUM 50 MG TABLET. PO SCH (10:57)
[2018-06-10] MEDS: POTASSIUM CHLORIDE 20 MEQ TABLET.ER. PO SCH (10:58)
[2018-06-10] MEDS ORDERED: LABETALOL 20 MG/4 ML DISP.SYRIN. IVP PRN (11:00)
--- NOTE | 2018-06-10 11:07 | PDOC2 ---
[facility] [employer] 06/10/18 1107: CARDIAC CONSULT DATE OF CONSULT Date of Consult DATE: 06/10/18 TIME: 10:30 REASON FOR CONSULT Reason for Consult: CHF, trop elevation REFERRING PHYSICIAN Referring Physician: Odell SOURCE Source: Chart review, Patient HISTORY OF PRESENT ILLNESS HISTORY OF PRESENT ILLNESS This is a pleasant 83 yo female admitted for complains of pleural effusion. She is sedentary and does not walk much only transfers to and bed. In the last 2 weeks she has been noted with SBP in the 160-170s by her and at one point SBP of 200. She has adequate hydration and her wt seems to fluctuate from 170-175 which is her baseline and currently at 172. No changes with her UOP and no n/v/d. No recent fever or chills. She is a poor historian and spuse providing with details. Reports that she has been having SOA, chest pain or palpitations. She went to her PCP yesterday and noted that she has pleural effusion but she was asymptomatic. She was then recommend to go to ED. PAST MEDICAL HISTORY Past Medical History Cardiovascular: CHF, HTN, Hyperlipidemia, Pulmonary hypertension, Other ( venous insufficinecy; PSVT) CENTRAL NERVOUS SYSTEM: Dementia, TIA Heme/Onc: Anemia NOS Psych: Depression Musculoskeletal: Osteoarthritis Renal/: Chronic renal insuff, UTI Endocrine: No pertinent hx Dermatology: No pertinent hx PAST SURGICAL HISTORY Past Surgical History Arthroscopy (right knee), Breast Biopsy, Cholecystectomy, Cataract Removal, Total knee replacement (right), Tonsillectomy, thoracentesis SOCIAL HISTORY Social History Smoke: No ALCOHOL: occasional Drugs: None Lives: with Family CURRENT MEDICATIONS CURRENT MEDICATIONS Current Medications Medications (Trade) Dose Ordered Sig/Kerrie Route PRN Reason Start Time Stop Time Status Last Admin Dose Admin Nitroglycerin (Nitro-Bid Oint) 1 inch 1X ONCE TP 06/09/18 16:30 06/09/18 16:32 DC 06/09/18 17:37 Vancomycin HCl (Vanco Per Pharmacy) 1 each PRN DAILY PRN MC SEE COMMENTS 06/09/18 17:30 06/09/18 19:43 Vancomycin HCl 2 gm/Sodium Chloride 500 ml @ 250 mls/hr 1X ONCE IV 06/09/18 18:30 06/09/18 20:29 DC 06/09/18 19:03 Piperacillin Sod/ Tazobactam Sod 3.375 gm/Sodium Chloride 50 ml @ 100 mls/hr 1X ONCE IV 06/09/18 18:00 06/09/18 18:29 DC 06/09/18 17:44 Furosemide (Lasix) 40 mg 1X ONCE IVP 06/09/18 18:30 06/09/18 18:31 DC 06/09/18 21:35 Piperacillin Sod/ Tazobactam Sod 2.25 gm/Sodium Chloride 50 ml @ 100 mls/hr Q6HRS IV 06/10/18 00:00 06/10/18 05:51 ALLERGIES ALLERGIES: Coded Allergies: No Known Drug Allergies (Unverified , 09/16/17) ROS Review of System poor historian, see HPI, details provided by spouse PHYSICAL EXAM General: Alert, Oriented X3, Cooperative, No acute distress HEENT: Atraumatic, Mucous membr. moist/pink Lungs: Other (diminsihed, SR wihtout significant ectopies) Heart: Regular rate (SR), Other (distant heart sounds) Abdomen: Soft, No tenderness Extremities: No cyanosis, Other (trace to 1+ bilateral LE pitting edema) Skin: No breakdown, No significant lesion Neuro: Normal speech, Sensation intact Psych/Mental Status: Other (flat affect) MUSCULOSKELETAL: Osteoarthritic changes both hands VITALS VITALS Vital Signs Date Time Temp Pulse Resp B/P (MAP) Pulse Ox O2 Delivery O2 Flow Rate FiO2 06/10/18 07:50 Nasal Cannula 2.0 06/10/18 07:00 97.9 72 16 120/54 (76) 96 97.9 LABS Lab: Laboratory Tests Test 06/09/18 16:25 06/09/18 20:35 06/09/18 23:25 06/10/18 05:40 White Blood Count 12.4 x10^3/uL (4.0-11.0) 11.0 x10^3/uL (4.0-11.0) Red Blood Count 4.28 x10^6/uL (3.50-5.40) 3.86 x10^6/uL (3.50-5.40) Hemoglobin 10.3 g/dL (12.0-15.5) 9.1 g/dL (12.0-15.5) Hematocrit 32.9 % (36.0-47.0) 29.7 % (36.0-47.0) Mean Corpuscular Volume 77 fL (79-100) 77 fL (79-100) Mean Corpuscular Hemoglobin 24 pg (25-35) 24 pg (25-35) Mean Corpuscular Hemoglobin Concent 31 g/dL (31-37) 31 g/dL (31-37) Red Cell Distribution Width 18.7 % (11.5-14.5) 18.5 % (11.5-14.5) Platelet Count 271 x10^3/uL (140-400) 208 x10^3/uL (140-400) Neutrophils (%) (Auto) 80 % (31-73) 80 % (31-73) Lymphocytes (%) (Auto) 11 % (24-48) 11 % (24-48) Monocytes (%) (Auto) 8 % (0-9) 8 % (0-9) Eosinophils (%) (Auto) 0 % (0-3) 1 % (0-3) Basophils (%) (Auto) 1 % (0-3) 1 % (0-3) Neutrophils # (Auto) 10.0 x10^3uL (1.8-7.7) 8.8 x10^3uL (1.8-7.7) Lymphocytes # (Auto) 1.4 x10^3/uL (1.0-4.8) 1.2 x10^3/uL (1.0-4.8) Monocytes # (Auto) 1.0 x10^3/uL (0.0-1.1) 0.9 x10^3/uL (0.0-1.1) Eosinophils # (Auto) 0.0 x10^3/uL (0.0-0.7) 0.1 x10^3/uL (0.0-0.7) Basophils # (Auto) 0.1 x10^3/uL (0.0-0.2) 0.1 x10^3/uL (0.0-0.2) Prothrombin Time 14.8 SEC (11.7-14.0) Prothromb Time International Ratio 1.2 (0.8-1.1) Activated Partial Thromboplast Time 34 SEC (24-38) Sodium Level 142 mmol/L (136-145) 144 mmol/L (136-145) Potassium Level 4.0 mmol/L (3.5-5.1) 3.5 mmol/L (3.5-5.1) Chloride Level 106 mmol/L (98-107) 108 mmol/L (98-107) Carbon Dioxide Level 29 mmol/L (21-32) 32 mmol/L (21-32) Anion Gap 7 (6-14) 4 (6-14) Blood Urea Nitrogen 23 mg/dL (7-20) 21 mg/dL (7-20) Creatinine 1.7 mg/dL (0.6-1.0) 1.8 mg/dL (0.6-1.0) Estimated GFR (Cockcroft-Gault) 28.6 26.8 Glucose Level 136 mg/dL (70-99) 112 mg/dL (70-99) Calcium Level 8.7 mg/dL (8.5-10.1) 8.3 mg/dL (8.5-10.1) Total Bilirubin 0.5 mg/dL (0.2-1.0) Direct Bilirubin 0.1 mg/dL (0.0-0.2) Aspartate Amino Transf (AST/SGOT) 22 U/L (15-37) Alanine Aminotransferase (ALT/SGPT) 25 U/L (14-59) Alkaline Phosphatase 147 U/L (46-116) Troponin I Quantitative 0.058 ng/mL (0.000-0.055) 0.074 ng/mL (0.000-0.055) 0.071 ng/mL (0.000-0.055) IW-Yhv-H-Type Natriuretic Peptide 3681 pg/mL (0-449) Total Protein 7.2 g/dL (6.4-8.2) Albumin 3.3 g/dL (3.4-5.0) Procalcitonin < 0.10 ng/mL (0.00-0.10) ECHOCARDIOGRAM ECHOCARDIOGRAM <Conclusion> Left ventricle systolic function is normal. The Ejection Fraction is 55-60%. There is normal LV segmental wall motion. Doppler and Color Flow revealed mild to moderate tricuspid regurgitation. There is moderate pulmonary hypertension. The PA pressure was estimated at 54 mmHg. DATE: 09/17/17 1203 HEART CATH HEART CATH Conclusion 1. One vessel disease in non-dominant small RCA. 2. Mildly elevated left ventricular filling pressures with LVEDP of 22mm Hg. Recommendations Dyspnea out of proportion to cardiac causes, consider pulmonary evaluation. DATE: 01/08/18 1125 ASSESSMENT/PLAN ASSESSMENT/PLAN 1. Recurrent pleural effusion 2. CAD; nonobstructive with recent LHC 3. Acute on chronic diastolic CHF: multifactorial including uncontrolled HTN 4. MIQUEL on CKD3 5. Mildly elevated troponin: peaked at 0.07, Type 2 demand mediated 6. HTN: initially labile, now controlled. 7. HLP 8. Dementia/Debility/WC bound/deconditioning Recommendations 1. CT pending, will need thoracentesis, defer to pulmonary 2. Apparently no SOA nor significant LE edema, shallow breathing but otherwise no respiratory distress despite significant pleural effusion. BP is currently controlled witll resume lasix dosing pending BP post thoracentesis. 3. Discussed with spouse as he is under the impression that SBP 160-170s is ok and was noted at home with SBP in the 200s. Maintain BP control. 4. TTE today. 5. Continue with secondary prevention. JOHNATHAN CHANDLER MD 06/10/18 1723: CARDIAC CONSULT ASSESSMENT/PLAN ASSESSMENT/PLAN Pt. seen and examined. Agree with above SALES AGENT [employer]OL SERVICE note. 83 y.o w with recurrent diastolic HF. No coronary disease. Unable to diurese due to renal insuff Agree with thoracentesis, resume lasix after thoracentesis. Supportive care. KIERA CHI APRN Jun 10, 2018 11:07 JOHNATHAN CHANDLER MD Jun 10, 2018 17:23
[2018-06-10 11:40] LABS: CHOLESTEROL/HDL RATIO 2.6
--- NOTE | 2018-06-10 11:49 | CONS ---
DATE OF CONSULTATION: ATTENDING PHYSICIAN: Dr. Khan. REASON FOR CONSULTATION: Recurrent pleural effusion. HISTORY OF PRESENT ILLNESS: The patient is an 83-year-old female who presented to the hospital after she was seen by a new primary care physician who requested the patient to go to the ER. Apparently, the patient has dementia and is not the best historian. Her states she has some mild shortness of breath, but this was not the reason why they saw her primary care doctor. There is increasing lower extremity edema. No cough, no fever, no chills, no chest pain, no nausea, vomiting, no diarrhea. No dysuria. No focal weakness. A chest x-ray was performed, which was reviewed by me and it shows moderate right-sided pleural effusion. The patient had prior thoracentesis on 01/13/2018. At that time, 650 mL of fluid was removed from the right chest. The patient also had venous Dopplers in March, which were negative for DVT. Currently, she is requiring oxygen at 2 liters. She normally does not wear oxygen. She has no significant history of tobacco use. PAST MEDICAL HISTORY: Significant for history of hypertension, history of prior thoracentesis, history of dementia, history of previous left heart catheterization in January showing increased left ventricular end diastolic pressure of 22 and there was a 1-vessel disease in a nondominant small RCA. Her EF was normal. ALLERGIES: None. MEDICATIONS: Reviewed as listed in the [facility]. REVIEW OF SYSTEMS: Twelve-point system obtained. Pertinent positives discussed in my history of present illness, otherwise noncontributory. All systems that were negative were reviewed as well. PHYSICAL EXAMINATION: GENERAL: She is awake, but weak. VITAL SIGNS: Blood pressure 146/63, afebrile, pulse ox 95% on 2 liters. NECK: Supple. LUNGS: Diminished breath sounds right base. CARDIOVASCULAR: Regular rate and rhythm. ABDOMEN: Soft. EXTREMITIES: With 1+ pitting edema. LABORATORY DATA: Reviewed. White cell count 11.0, hemoglobin 9.1 and platelets are 208. BUN is 21 and a creatinine of 1.8. IMPRESSION: 1. Acute hypoxic respiratory failure secondary to recurrent right-sided pleural effusion. 2. Abnormal chest x-ray with recurrent right-sided pleural effusion. Could be loculated. She had prior thoracentesis in January and it was a transudate. Her etiology of effusion is related to diastolic heart failure. Her previous cardiac catheterization had shown elevated left ventricular end-diastolic pressure of 22. 3. No significant history of tobacco use. 4. Renal insufficiency. 5. Increased troponin level could be non-ST IN. RECOMMENDATIONS: 1. From a pulmonary standpoint, I would do a noncontrast CT chest to better assess for any loculated pleural effusion. 2. Discussed with the patient's and if there is significant pocket of pleural effusion then she would require thoracentesis and he is agreeable with that. 3. Continue present oxygen. 4. Antibiotics can be discontinued in the next 24 hours after review of CT chest as clinical symptoms of pneumonia is less likely. 5. Follow cardiology recommendation. 6. Discussed with RN. HILARY MARTIN MD DR: NAZANIN/nts JOB#: [id number] / [id number]
--- NOTE | 2018-06-10 11:54 | RAD ---
CT of the chest without contrast, 06/10/2018: HISTORY: Effusion Noncontrast scans were obtained and compared to a study from 01/13/2018. There is moderate calcific plaquing of the thoracic aorta without evidence of aneurysm. Scattered coronary artery calcifications are present. The heart is mildly enlarged. No mediastinal adenopathy is seen. There is a large hiatal hernia. There is moderate patient respiratory motion artifact, limiting evaluation of the lung parenchyma. There is a large right pleural effusion which has increased in size since 01/13/2018. The right lower lobe is nearly completely atelectatic. There is partial atelectasis of the right middle lobe. There are mild streaky and groundglass opacities in the right upper lobe. There is a small to moderate size left pleural effusion which has also increased in size since the previous study. There is mild to moderate atelectasis posteriorly in the left lower lobe. An unchanged rounded low-density lesion in the left lobe of liver is probably a cyst. There are mild scattered degenerative changes in the spine. Vertebral body hemangiomas are noted at several levels in the midthoracic spine. IMPRESSION: 1. Increasing large right pleural effusion and moderate size left pleural effusion with underlying atelectasis, right greater than left, as described above. A component of pneumonia within the atelectatic lung cannot be excluded. 2. Large hiatal hernia 3. Cardiomegaly with calcific plaquing of the aorta and coronary arteries. PQRS Compliance Statement: One or more of the following individualized dose reduction techniques were utilized for this examination: 1. Automated exposure control 2. Adjustment of the mA and/or kV according to patient size 3. Use of iterative reconstruction technique Electronically signed by: Domingo Marti MD (06/10/2018 11:51 AM) [facility]
--- NOTE | 2018-06-10 11:56 | PDOC1 ---
History and Physical Date of Admission Date of Admission DATE: 06/10/18 TIME: 11:55 History of Present Illness History of Present Illness Ms. Hand, is a 83 year old female admit with acute dyspnea, she is demented, history largely per . The patient has had worsening dyspnea and decreased appetite over the last 5 days, with LE edema, sent to ER by primary care, new hypoxia, and found to have a pleural effusion. The patient denies feeling dyspneic, buit was hypoxic in the ER compali] although she had an oxygen saturation on room air in the low to mid 80s. On arrival to the ER, she continues to deny complaints. She has no chest pain. She does not complain of dyspnea. Her oxygen saturations are much improved on 2 L of oxygen per nasal cannula. The patient does complain of edema over the last week in the lower extremities which has been worsening. No fever or chills. Past Medical History Cardiovascular: CHF, HTN, Hyperlipidemia, Pulmonary hypertension, Other CENTRAL NERVOUS SYSTEM: Dementia, TIA Heme/Onc: Anemia NOS Psych: Depression Musculoskeletal: Osteoarthritis Renal/: Chronic renal insuff, UTI Endocrine: No pertinent hx Past Surgical History Past Surgical History: Arthroscopy, Breast Biopsy, Cholecystectomy, Cataract Removal, Total knee replacement, Tonsillectomy, Other Family History Family History: High Cholestrol, Hypertension Social History Smoke: No ALCOHOL: none Drugs: None Current Problem List Problem List Problems Medical Problems: (1) Congestive heart failure Status: Acute (2) Pleural effusion Status: Acute Current Medications Current Medications Current Medications Nitroglycerin (Nitro-Bid Oint) 1 inch 1X ONCE TP Last administered on at 17:37; Start 06/09/18 at 16:30; Stop 06/09/18 at 16:32; Status DC Vancomycin HCl (Vanco Per Pharmacy) 1 each PRN DAILY PRN MC SEE COMMENTS Last administered on 06/09/18at 19:43; Start 06/09/18 at 17:30 Piperacillin Sod/ Tazobactam Sod (Zosyn Per Pharmacy) 1 each PRN DAILY PRN MC SEE COMMENTS; Start 06/09/18 at 17:30 Ondansetron HCl (Zofran) 4 mg PRN Q8HRS PRN IV NAUSEA/VOMITING; Start 06/09/18 at 17:30; Stop 06/10/18 at 17:29 Acetaminophen (Tylenol) 650 mg PRN Q4HRS PRN PO FEVER; Start 06/09/18 at 17:30; Stop 06/10/18 at 17:29 Vancomycin HCl 2 gm/Sodium Chloride 500 ml @ 250 mls/hr 1X ONCE IV Last administered on 06/09/18at 19:03; Start 06/09/18 at 18:30; Stop 06/09/18 at 20:29; Status DC Piperacillin Sod/ Tazobactam Sod 3.375 gm/Sodium Chloride 50 ml @ 100 mls/hr 1X ONCE IV Last administered on 06/09/18at 17:44; Start 06/09/18 at 18:00; Stop 06/09/18 at 18:29; Status DC Furosemide (Lasix) 40 mg 1X ONCE IVP Last administered on 06/09/18at 21:35; Start 06/09/18 at 18:30; Stop 06/09/18 at 18:31; Status DC Furosemide (Lasix) 20 mg 1X ONCE IVP ; Start 06/09/18 at 19:00; Stop 06/09/18 at 19:01; Status UNV Piperacillin Sod/ Tazobactam Sod 2.25 gm/Sodium Chloride 50 ml @ 100 mls/hr Q6HRS IV Last administered on 06/10/18at 05:51; Start 06/10/18 at 00:00 Vancomycin HCl 1.25 gm/Sodium Chloride 250 ml @ 167 mls/hr Q48H IV ; Start 06/11 at 19:00 Carvedilol (Coreg) 12.5 mg BIDWMEALS PO Last administered on 06/10/18at 10:57; Start 06/10/18 at 10:30 Cholestyramine Resin (Questran Light) 2 gm Q24H PO ; Start 06/10/18 at 13:00 Donepezil HCl (Aricept) 10 mg DAILY PO Last administered on 06/10/18at 10:56; Start 06/10/18 at 10:30 Potassium Chloride (Klor-Con) 20 meq DAILYWBKFT PO Last administered on at 10:58; Start 06/10/18 at 10:30 Atorvastatin Calcium (Lipitor) 5 mg QHS PO ; Start 06/10/18 at 21:00 Risperidone (RisperDAL) 0.5 mg DAILY PO ; Start 06/10/18 at 10:30; Stop 06/10/18 at 10:30; Status DC Risperidone (RisperDAL) 0.5 mg HS PO ; Start 06/10/18 at 21:00 Losartan Potassium (Cozaar) 50 mg DAILY PO Last administered on 06/10/18at 10:57 ; Start 06/10/18 at 11:00 Aspirin (Ecotrin) 81 mg DAILYWBKFT PO ; Start 06/10/18 at 11:30 Labetalol HCl (Normodyne Iv Push) 20 mg PRN Q2HR PRN IVP HYPERTENSION, SEE COMMENTS; Start 06/10/18 at 11:00 Active Scripts Active Furosemide 40 Mg Tablet 40 Mg PO DAILY 30 Days Potassium Chloride 10 Meq Capsule.er 20 Meq PO DAILY 14 Days Reported Losartan Potassium 100 Mg Tablet 100 Mg PO DAILY Polysporin Topical Oint (Bacitracin/Polymyxin B Sulfate) 28.3 Gm Oint...g. 1 Keke TP BID DIRECTED BY PHYSICIAN Aspirin 325 Mg Tablet 325 Mg PO DAILY Cholestyramine Packet (Cholestyramine (With Sugar)) 4 Gm Powd.pack 2 Gm PO DAILY Donepezil Hcl 10 Mg Tablet 10 Mg PO DAILY Risperidone 0.5 Mg Tablet 1 Tab PO DAILY Carvedilol 12.5 Mg Tablet 12.5 Mg PO BIDWMEALS Pravastatin Sodium 20 Mg Tablet 20 Mg PO QHS Amlodipine Besylate 2.5 Mg Tablet 2.5 Mg PO DAILY Allergies Allergies: Coded Allergies: No Known Drug Allergies (Unverified , 09/16/17) ROS General: No: Chills, Night Sweats, Fatigue, Malaise, Appetite, Other PSYCHOLOGICAL ROS: No: Anxiety, Behavioral Disorder, Concentration difficultie , Decreased libido, Depression, Disorientation, Hallucinations, Hostility, Irritablity, Memory difficulties, Mood Swings, Obsessive thoughts, Physical abuse, Sexual abuse, Sleep disturbances, Suicidal ideation, Other Eyes: No Blurry vision, No Decreased vision, No Double vision, No Dry eyes, No Excessive tearing, No Eye Pain, No Itchy Eyes, No Loss of vision, No Photophobia , No Scotomata, No Uses contacts, No Uses glasses, No Other HEENT: No: Heacaches, Visual Changes, Hearing change, Nasal congestion, Nasal discharge, Oral lesions, Sinus pain, Sore Throat, Epistaxis, Sneezing, Snoring, Tinnitus, Vertigo, Vocal changes, Other ENDOCRINE: No: Breast Changes, Galactorrhea, Hair Pattern Changes, Hot Flashes , Malaise/lethargy, Mood Swings, Palpitations, Polydipsia/polyuria, Skin Changes , Temperature Intolerance, Unexpected Weight Changes, Other Respiratory: No: Cough, Hemoptysis, Orthopnea, Pleuritic Pain, Shortness of breath, SOB with excertion, Sputum Changes, Stridor, Tachypnea, Wheezing, Other Cardiovascular: No Chest Pain, No Palpitations, No Orthopnea, No Paroxysmal Noc. Dyspnea, No Edema, No Lt Headedness, No Other Gastrointestinal: No Nausea, No Vomiting, No Abdominal Pain, No Diarrhea, No Constipation, No Melena, No Hematochezia, No Other Genitourinary: No Dysuria, No Frequency, No Incontinence, No Hematuria, No Retention, No Discharge, No Urgency, No Pain, No Flank Pain, No Other, No , No , No , No , No , No , No Musculoskeletal: Yes Joint Pain; No Gait Disturbance, No Joint Stiffness, No Joint Swelling, No Muscle Pain, No Muscular Weakness, No Pain In:, No Swelling In:, No Other Neurological: No Behavorial Changes, No Bowel/Bladder ControlChng, No Confusion , No Dizziness, No Gait Disturbance, No Headaches, No Impaired Coord/balance, No Memory Loss, No Numbness/Tingling, No Seizures, No Speech Problems, No Tremors, No Visual Changes, No Weakness, No Other Skin: No Dry Skin, No Eczema, No Hair Changes, No Lumps, No Mole Changes, No Mottling, No Nail Changes, No Pruritus, No Rash, No Skin Lesion Changes, No Other, No Acne Physical Exam General: Alert, mild distress HEENT: Atraumatic, EOMI, Mucous membr. moist/pink Lungs: Other Heart: no gallops, no murmurs Abdomen: Normal bowel sounds Male Genitals Exam: normal genitalia Rectal Exam: deferred Extremities: No cyanosis Skin: No rashes Neuro: Normal speech, Normal tone, Cranial nerves 3-12 NL Psych/Mental Status: Mood NL Vitals Vitals Vital Signs Date Time Temp Pulse Resp B/P (MAP) Pulse Ox O2 Delivery O2 Flow Rate FiO2 06/10/18 10:57 75 146/63 06/10/18 10:45 98.5 16 95 Nasal Cannula 2.0 98.5 Labs Labs Laboratory Tests Test 06/09/18 16:25 06/09/18 20:35 06/09/18 23:25 06/10/18 05:40 White Blood Count 12.4 x10^3/uL (4.0-11.0) 11.0 x10^3/uL (4.0-11.0) Red Blood Count 4.28 x10^6/uL (3.50-5.40) 3.86 x10^6/uL (3.50-5.40) Hemoglobin 10.3 g/dL (12.0-15.5) 9.1 g/dL (12.0-15.5) Hematocrit 32.9 % (36.0-47.0) 29.7 % (36.0-47.0) Mean Corpuscular Volume 77 fL (79-100) 77 fL (79-100) Mean Corpuscular Hemoglobin 24 pg (25-35) 24 pg (25-35) Mean Corpuscular Hemoglobin Concent 31 g/dL (31-37) 31 g/dL (31-37) Red Cell Distribution Width 18.7 % (11.5-14.5) 18.5 % (11.5-14.5) Platelet Count 271 x10^3/uL (140-400) 208 x10^3/uL (140-400) Neutrophils (%) (Auto) 80 % (31-73) 80 % (31-73) Lymphocytes (%) (Auto) 11 % (24-48) 11 % (24-48) Monocytes (%) (Auto) 8 % (0-9) 8 % (0-9) Eosinophils (%) (Auto) 0 % (0-3) 1 % (0-3) Basophils (%) (Auto) 1 % (0-3) 1 % (0-3) Neutrophils # (Auto) 10.0 x10^3uL (1.8-7.7) 8.8 x10^3uL (1.8-7.7) Lymphocytes # (Auto) 1.4 x10^3/uL (1.0-4.8) 1.2 x10^3/uL (1.0-4.8) Monocytes # (Auto) 1.0 x10^3/uL (0.0-1.1) 0.9 x10^3/uL (0.0-1.1) Eosinophils # (Auto) 0.0 x10^3/uL (0.0-0.7) 0.1 x10^3/uL (0.0-0.7) Basophils # (Auto) 0.1 x10^3/uL (0.0-0.2) 0.1 x10^3/uL (0.0-0.2) Prothrombin Time 14.8 SEC (11.7-14.0) Prothromb Time International Ratio 1.2 (0.8-1.1) Activated Partial Thromboplast Time 34 SEC (24-38) Sodium Level 142 mmol/L (136-145) 144 mmol/L (136-145) Potassium Level 4.0 mmol/L (3.5-5.1) 3.5 mmol/L (3.5-5.1) Chloride Level 106 mmol/L (98-107) 108 mmol/L (98-107) Carbon Dioxide Level 29 mmol/L (21-32) 32 mmol/L (21-32) Anion Gap 7 (6-14) 4 (6-14) Blood Urea Nitrogen 23 mg/dL (7-20) 21 mg/dL (7-20) Creatinine 1.7 mg/dL (0.6-1.0) 1.8 mg/dL (0.6-1.0) Estimated GFR (Cockcroft-Gault) 28.6 26.8 Glucose Level 136 mg/dL (70-99) 112 mg/dL (70-99) Calcium Level 8.7 mg/dL (8.5-10.1) 8.3 mg/dL (8.5-10.1) Total Bilirubin 0.5 mg/dL (0.2-1.0) Direct Bilirubin 0.1 mg/dL (0.0-0.2) Aspartate Amino Transf (AST/SGOT) 22 U/L (15-37) Alanine Aminotransferase (ALT/SGPT) 25 U/L (14-59) Alkaline Phosphatase 147 U/L (46-116) Troponin I Quantitative 0.058 ng/mL (0.000-0.055) 0.074 ng/mL (0.000-0.055) 0.071 ng/mL (0.000-0.055) MM-Kgu-A-Type Natriuretic Peptide 3681 pg/mL (0-449) Total Protein 7.2 g/dL (6.4-8.2) Albumin 3.3 g/dL (3.4-5.0) Procalcitonin < 0.10 ng/mL (0.00-0.10) Triglycerides Level 90 mg/dL (0-150) Cholesterol Level 102 mg/dL (0-200) LDL Cholesterol, Calculated 45 mg/dL (0-100) VLDL Cholesterol, Calculated 18 mg/dL (0-40) Non-HDL Cholesterol Calculated 63 mg/dL (0-129) HDL Cholesterol 39 mg/dL (40-60) Cholesterol/HDL Ratio 2.6 Laboratory Tests Test 06/09/18 16:25 06/09/18 20:35 06/09/18 23:25 06/10/18 05:40 White Blood Count 12.4 x10^3/uL (4.0-11.0) 11.0 x10^3/uL (4.0-11.0) Red Blood Count 4.28 x10^6/uL (3.50-5.40) 3.86 x10^6/uL (3.50-5.40) Hemoglobin 10.3 g/dL (12.0-15.5) 9.1 g/dL (12.0-15.5) Hematocrit 32.9 % (36.0-47.0) 29.7 % (36.0-47.0) Mean Corpuscular Volume 77 fL (79-100) 77 fL (79-100) Mean Corpuscular Hemoglobin 24 pg (25-35) 24 pg (25-35) Mean Corpuscular Hemoglobin Concent 31 g/dL (31-37) 31 g/dL (31-37) Red Cell Distribution Width 18.7 % (11.5-14.5) 18.5 % (11.5-14.5) Platelet Count 271 x10^3/uL (140-400) 208 x10^3/uL (140-400) Neutrophils (%) (Auto) 80 % (31-73) 80 % (31-73) Lymphocytes (%) (Auto) 11 % (24-48) 11 % (24-48) Monocytes (%) (Auto) 8 % (0-9) 8 % (0-9) Eosinophils (%) (Auto) 0 % (0-3) 1 % (0-3) Basophils (%) (Auto) 1 % (0-3) 1 % (0-3) Neutrophils # (Auto) 10.0 x10^3uL (1.8-7.7) 8.8 x10^3uL (1.8-7.7) Lymphocytes # (Auto) 1.4 x10^3/uL (1.0-4.8) 1.2 x10^3/uL (1.0-4.8) Monocytes # (Auto) 1.0 x10^3/uL (0.0-1.1) 0.9 x10^3/uL (0.0-1.1) Eosinophils # (Auto) 0.0 x10^3/uL (0.0-0.7) 0.1 x10^3/uL (0.0-0.7) Basophils # (Auto) 0.1 x10^3/uL (0.0-0.2) 0.1 x10^3/uL (0.0-0.2) Prothrombin Time 14.8 SEC (11.7-14.0) Prothromb Time International Ratio 1.2 (0.8-1.1) Activated Partial Thromboplast Time 34 SEC (24-38) Sodium Level 142 mmol/L (136-145) 144 mmol/L (136-145) Potassium Level 4.0 mmol/L (3.5-5.1) 3.5 mmol/L (3.5-5.1) Chloride Level 106 mmol/L (98-107) 108 mmol/L (98-107) Carbon Dioxide Level 29 mmol/L (21-32) 32 mmol/L (21-32) Anion Gap 7 (6-14) 4 (6-14) Blood Urea Nitrogen 23 mg/dL (7-20) 21 mg/dL (7-20) Creatinine 1.7 mg/dL (0.6-1.0) 1.8 mg/dL (0.6-1.0) Estimated GFR (Cockcroft-Gault) 28.6 26.8 Glucose Level 136 mg/dL (70-99) 112 mg/dL (70-99) Calcium Level 8.7 mg/dL (8.5-10.1) 8.3 mg/dL (8.5-10.1) Total Bilirubin 0.5 mg/dL (0.2-1.0) Direct Bilirubin 0.1 mg/dL (0.0-0.2) Aspartate Amino Transf (AST/SGOT) 22 U/L (15-37) Alanine Aminotransferase (ALT/SGPT) 25 U/L (14-59) Alkaline Phosphatase 147 U/L (46-116) Troponin I Quantitative 0.058 ng/mL (0.000-0.055) 0.074 ng/mL (0.000-0.055) 0.071 ng/mL (0.000-0.055) XV-[id number]-[id number]-Type Natriuretic Peptide 3681 pg/mL (0-449) Total Protein 7.2 g/dL (6.4-8.2) Albumin 3.3 g/dL (3.4-5.0) Procalcitonin < 0.10 ng/mL (0.00-0.10) Triglycerides Level 90 mg/dL (0-150) Cholesterol Level 102 mg/dL (0-200) LDL Cholesterol, Calculated 45 mg/dL (0-100) VLDL Cholesterol, Calculated 18 mg/dL (0-40) Non-HDL Cholesterol Calculated 63 mg/dL (0-129) HDL Cholesterol 39 mg/dL (40-60) Cholesterol/HDL Ratio 2.6 VTE Prophylaxis Ordered VTE Prophylaxis Devices: Yes VTE Pharmacological Prophylaxi: No Assessment/Plan Assessment/Plan 1. Acute hypoxic respiratory failure 2. Right-sided pleural effusion w. prior thoracentesis in January and it was a transudate. 3. chronic diastolic CHF 4. CKD 3 . 5. dementia, JEROME ZURITA MD Jun 10, 2018 11:56
[2018-06-10] MEDS: ASPIRIN ENTERIC COATED 81 MG TABLET.DR. PO SCH (13:03)
[2018-06-10] MEDS: CHOLESTYRAMINE/ASPARTAME 4 GM PACKET PO SCH (13:04)
--- NOTE | 2018-06-10 14:32 | PDOC2 ---
CONSULT Date of Consult Date of Consult DATE: 06/10/18 TIME: 14:19 Reason for Consult Reason for Consult: Acute on Chr renal failure, Source Source: Chart review, Patient History of Present Illness Reason for Visit: The patient is an 83-year-old female who presented to the hospital after she was seen by a new PCP who requested the patient to go to the ER. Apparently, the patient has dementia and is not the best historian. Her states she has some mild shortness of breath, increasing lower extremity edema. No cough, no fever, no chills, no chest pain,no nausea, vomiting, no diarrhea. No dysuria. CxR shows moderate right-sided pleural effusion , hx of prior thoracentesis in january 2018 -650 mL of fluid was removed .She is currently on 2 liters O2 Unable to Obtain detail Hx from Pt. She states she is feeling better Significant for history of hypertension, history of dementia, history of previous left heart catheterization in January showing increased left ventricular end diastolic pressure of 22 and there was a 1-vessel disease in a nondominant small RCA. EF was normal. Past Medical History Cardiovascular: CHF, HTN, Hyperlipidemia, Pulmonary hypertension, Other CENTRAL NERVOUS SYSTEM: Dementia, TIA Heme/Onc: Anemia NOS Psych: Depression Musculoskeletal: Osteoarthritis Renal/: Chronic renal insuff, UTI Endocrine: No pertinent hx Past Surgical History Past Surgical History: Arthroscopy, Breast Biopsy, Cholecystectomy, Cataract Removal, Total knee replacement, Tonsillectomy, Other Family History Family History: High Cholestrol, Hypertension Social History ALCOHOL: occassional Drugs: None Lives: with Family Current Problem List Problem List Problems Medical Problems: (1) Congestive heart failure Status: Acute (2) Pleural effusion Status: Acute Current Medications Current Medications Current Medications Nitroglycerin (Nitro-Bid Oint) 1 inch 1X ONCE TP Last administered on at 17:37; Start 06/09/18 at 16:30; Stop 06/09/18 at 16:32; Status DC Vancomycin HCl (Vanco Per Pharmacy) 1 each PRN DAILY PRN MC SEE COMMENTS Last administered on 06/09/18at 19:43; Start 06/09/18 at 17:30 Piperacillin Sod/ Tazobactam Sod (Zosyn Per Pharmacy) 1 each PRN DAILY PRN MC SEE COMMENTS; Start 06/09/18 at 17:30 Ondansetron HCl (Zofran) 4 mg PRN Q8HRS PRN IV NAUSEA/VOMITING; Start 06/09/18 at 17:30; Stop 06/10/18 at 17:29 Acetaminophen (Tylenol) 650 mg PRN Q4HRS PRN PO FEVER; Start 06/09/18 at 17:30; Stop 06/10/18 at 17:29 Vancomycin HCl 2 gm/Sodium Chloride 500 ml @ 250 mls/hr 1X ONCE IV Last administered on 06/09/18at 19:03; Start 06/09/18 at 18:30; Stop 06/09/18 at 20:29; Status DC Piperacillin Sod/ Tazobactam Sod 3.375 gm/Sodium Chloride 50 ml @ 100 mls/hr 1X ONCE IV Last administered on 06/09/18at 17:44; Start 06/09/18 at 18:00; Stop 06/09/18 at 18:29; Status DC Furosemide (Lasix) 40 mg 1X ONCE IVP Last administered on 06/09/18at 21:35; Start 06/09/18 at 18:30; Stop 06/09/18 at 18:31; Status DC Furosemide (Lasix) 20 mg 1X ONCE IVP ; Start 06/09/18 at 19:00; Stop 06/09/18 at 19:01; Status UNV Piperacillin Sod/ Tazobactam Sod 2.25 gm/Sodium Chloride 50 ml @ 100 mls/hr Q6HRS IV Last administered on 06/10/18at 13:03; Start 06/10/18 at 00:00 Vancomycin HCl 1.25 gm/Sodium Chloride 250 ml @ 167 mls/hr Q48H IV ; Start 06/11 at 19:00 Carvedilol (Coreg) 12.5 mg BIDWMEALS PO Last administered on 06/10/18at 10:57; Start 06/10/18 at 10:30 Cholestyramine Resin (Questran Light) 2 gm Q24H PO Last administered on 13:04; Start 06/10/18 at 13:00 Donepezil HCl (Aricept) 10 mg DAILY PO Last administered on 06/10/18at 10:56; Start 06/10/18 at 10:30 Potassium Chloride (Klor-Con) 20 meq DAILYWBKFT PO Last administered on 9/5/ 18at 10:58; Start 06/10/18 at 10:30 Atorvastatin Calcium (Lipitor) 5 mg QHS PO ; Start 06/10/18 at 21:00 Risperidone (RisperDAL) 0.5 mg DAILY PO ; Start 06/10/18 at 10:30; Stop 06/10/18 at 10:30; Status DC Risperidone (RisperDAL) 0.5 mg HS PO ; Start 06/10/18 at 21:00 Losartan Potassium (Cozaar) 50 mg DAILY PO Last administered on 06/10/18at 10:57 ; Start 06/10/18 at 11:00 Aspirin (Ecotrin) 81 mg DAILYWBKFT PO Last administered on 06/10/18at 13:03; Start 06/10/18 at 11:30 Labetalol HCl (Normodyne Iv Push) 20 mg PRN Q2HR PRN IVP HYPERTENSION, SEE COMMENTS; Start 06/10/18 at 11:00 Active Scripts Active Furosemide 40 Mg Tablet 40 Mg PO DAILY 30 Days Potassium Chloride 10 Meq Capsule.er 20 Meq PO DAILY 14 Days Reported Losartan Potassium 100 Mg Tablet 100 Mg PO DAILY Polysporin Topical Oint (Bacitracin/Polymyxin B Sulfate) 28.3 Gm Oint...g. 1 Keke TP BID DIRECTED BY PHYSICIAN Aspirin 325 Mg Tablet 325 Mg PO DAILY Cholestyramine Packet (Cholestyramine (With Sugar)) 4 Gm Powd.pack 2 Gm PO DAILY Donepezil Hcl 10 Mg Tablet 10 Mg PO DAILY Risperidone 0.5 Mg Tablet 1 Tab PO DAILY Carvedilol 12.5 Mg Tablet 12.5 Mg PO BIDWMEALS Pravastatin Sodium 20 Mg Tablet 20 Mg PO QHS Amlodipine Besylate 2.5 Mg Tablet 2.5 Mg PO DAILY Allergies Allergies: Coded Allergies: No Known Drug Allergies (Unverified , 09/16/17) ROS Review of System As per HPI Physical Exam Physical Exam General: NAD HEENT: OM Lungs: CTA ant , non labored Heart: Regular rate Abdomen: Soft, No tenderness Extremities: trace to 1+ bilateral LE pitting edema) Skin: No rash Neuro: AXO - no henry, No CVA or SP tenderness Vital Signs Vital Signs Date Time Temp Pulse Resp B/P (MAP) Pulse Ox O2 Delivery O2 Flow Rate FiO2 06/10/18 10:57 75 146/63 06/10/18 10:45 98.5 16 95 Nasal Cannula 2.0 98.5 Assessment & Plan MIQUEL on CKD- Likely cardiorenal E-Lytes and acid base stable Lasix held for Now CKD stage 3- baseline Creat 1.3-1.4 Recurrent pleural effusion- S/P Thoracentesis in January [address]- Increasing large right pleural effusion and moderate size left pleural effusion CAD; nonobstructive with recent LHC in january. Acute on chronic diastolic CHF: multifactorial including uncontrolled HTN EF Dementia/Debility//deconditioning Labs Labs Laboratory Tests Test 06/09/18 16:25 06/09/18 20:35 06/09/18 23:25 06/10/18 05:40 White Blood Count 12.4 x10^3/uL (4.0-11.0) 11.0 x10^3/uL (4.0-11.0) Red Blood Count 4.28 x10^6/uL (3.50-5.40) 3.86 x10^6/uL (3.50-5.40) Hemoglobin 10.3 g/dL (12.0-15.5) 9.1 g/dL (12.0-15.5) Hematocrit 32.9 % (36.0-47.0) 29.7 % (36.0-47.0) Mean Corpuscular Volume 77 fL (79-100) 77 fL (79-100) Mean Corpuscular Hemoglobin 24 pg (25-35) 24 pg (25-35) Mean Corpuscular Hemoglobin Concent 31 g/dL (31-37) 31 g/dL (31-37) Red Cell Distribution Width 18.7 % (11.5-14.5) 18.5 % (11.5-14.5) Platelet Count 271 x10^3/uL (140-400) 208 x10^3/uL (140-400) Neutrophils (%) (Auto) 80 % (31-73) 80 % (31-73) Lymphocytes (%) (Auto) 11 % (24-48) 11 % (24-48) Monocytes (%) (Auto) 8 % (0-9) 8 % (0-9) Eosinophils (%) (Auto) 0 % (0-3) 1 % (0-3) Basophils (%) (Auto) 1 % (0-3) 1 % (0-3) Neutrophils # (Auto) 10.0 x10^3uL (1.8-7.7) 8.8 x10^3uL (1.8-7.7) Lymphocytes # (Auto) 1.4 x10^3/uL (1.0-4.8) 1.2 x10^3/uL (1.0-4.8) Monocytes # (Auto) 1.0 x10^3/uL (0.0-1.1) 0.9 x10^3/uL (0.0-1.1) Eosinophils # (Auto) 0.0 x10^3/uL (0.0-0.7) 0.1 x10^3/uL (0.0-0.7) Basophils # (Auto) 0.1 x10^3/uL (0.0-0.2) 0.1 x10^3/uL (0.0-0.2) Prothrombin Time 14.8 SEC (11.7-14.0) Prothromb Time International Ratio 1.2 (0.8-1.1) Activated Partial Thromboplast Time 34 SEC (24-38) Sodium Level 142 mmol/L (136-145) 144 mmol/L (136-145) Potassium Level 4.0 mmol/L (3.5-5.1) 3.5 mmol/L (3.5-5.1) Chloride Level 106 mmol/L (98-107) 108 mmol/L (98-107) Carbon Dioxide Level 29 mmol/L (21-32) 32 mmol/L (21-32) Anion Gap 7 (6-14) 4 (6-14) Blood Urea Nitrogen 23 mg/dL (7-20) 21 mg/dL (7-20) Creatinine 1.7 mg/dL (0.6-1.0) 1.8 mg/dL (0.6-1.0) Estimated GFR (Cockcroft-Gault) 28.6 26.8 Glucose Level 136 mg/dL (70-99) 112 mg/dL (70-99) Calcium Level 8.7 mg/dL (8.5-10.1) 8.3 mg/dL (8.5-10.1) Total Bilirubin 0.5 mg/dL (0.2-1.0) Direct Bilirubin 0.1 mg/dL (0.0-0.2) Aspartate Amino Transf (AST/SGOT) 22 U/L (15-37) Alanine Aminotransferase (ALT/SGPT) 25 U/L (14-59) Alkaline Phosphatase 147 U/L (46-116) Troponin I Quantitative 0.058 ng/mL (0.000-0.055) 0.074 ng/mL (0.000-0.055) 0.071 ng/mL (0.000-0.055) ZN-Bjk-Y-Type Natriuretic Peptide 3681 pg/mL (0-449) Total Protein 7.2 g/dL (6.4-8.2) Albumin 3.3 g/dL (3.4-5.0) Procalcitonin < 0.10 ng/mL (0.00-0.10) Triglycerides Level 90 mg/dL (0-150) Cholesterol Level 102 mg/dL (0-200) LDL Cholesterol, Calculated 45 mg/dL (0-100) VLDL Cholesterol, Calculated 18 mg/dL (0-40) Non-HDL Cholesterol Calculated 63 mg/dL (0-129) HDL Cholesterol 39 mg/dL (40-60) Cholesterol/HDL Ratio 2.6 Laboratory Tests Test 06/09/18 16:25 06/09/18 20:35 06/09/18 23:25 06/10/18 05:40 White Blood Count 12.4 x10^3/uL (4.0-11.0) 11.0 x10^3/uL (4.0-11.0) Red Blood Count 4.28 x10^6/uL (3.50-5.40) 3.86 x10^6/uL (3.50-5.40) Hemoglobin 10.3 g/dL (12.0-15.5) 9.1 g/dL (12.0-15.5) Hematocrit 32.9 % (36.0-47.0) 29.7 % (36.0-47.0) Mean Corpuscular Volume 77 fL (79-100) 77 fL (79-100) Mean Corpuscular Hemoglobin 24 pg (25-35) 24 pg (25-35) Mean Corpuscular Hemoglobin Concent 31 g/dL (31-37) 31 g/dL (31-37) Red Cell Distribution Width 18.7 % (11.5-14.5) 18.5 % (11.5-14.5) Platelet Count 271 x10^3/uL (140-400) 208 x10^3/uL (140-400) Neutrophils (%) (Auto) 80 % (31-73) 80 % (31-73) Lymphocytes (%) (Auto) 11 % (24-48) 11 % (24-48) Monocytes (%) (Auto) 8 % (0-9) 8 % (0-9) Eosinophils (%) (Auto) 0 % (0-3) 1 % (0-3) Basophils (%) (Auto) 1 % (0-3) 1 % (0-3) Neutrophils # (Auto) 10.0 x10^3uL (1.8-7.7) 8.8 x10^3uL (1.8-7.7) Lymphocytes # (Auto) 1.4 x10^3/uL (1.0-4.8) 1.2 x10^3/uL (1.0-4.8) Monocytes # (Auto) 1.0 x10^3/uL (0.0-1.1) 0.9 x10^3/uL (0.0-1.1) Eosinophils # (Auto) 0.0 x10^3/uL (0.0-0.7) 0.1 x10^3/uL (0.0-0.7) Basophils # (Auto) 0.1 x10^3/uL (0.0-0.2) 0.1 x10^3/uL (0.0-0.2) Prothrombin Time 14.8 SEC (11.7-14.0) Prothromb Time International Ratio 1.2 (0.8-1.1) Activated Partial Thromboplast Time 34 SEC (24-38) Sodium Level 142 mmol/L (136-145) 144 mmol/L (136-145) Potassium Level 4.0 mmol/L (3.5-5.1) 3.5 mmol/L (3.5-5.1) Chloride Level 106 mmol/L (98-107) 108 mmol/L (98-107) Carbon Dioxide Level 29 mmol/L (21-32) 32 mmol/L (21-32) Anion Gap 7 (6-14) 4 (6-14) Blood Urea Nitrogen 23 mg/dL (7-20) 21 mg/dL (7-20) Creatinine 1.7 mg/dL (0.6-1.0) 1.8 mg/dL (0.6-1.0) Estimated GFR (Cockcroft-Gault) 28.6 26.8 Glucose Level 136 mg/dL (70-99) 112 mg/dL (70-99) Calcium Level 8.7 mg/dL (8.5-10.1) 8.3 mg/dL (8.5-10.1) Total Bilirubin 0.5 mg/dL (0.2-1.0) Direct Bilirubin 0.1 mg/dL (0.0-0.2) Aspartate Amino Transf (AST/SGOT) 22 U/L (15-37) Alanine Aminotransferase (ALT/SGPT) 25 U/L (14-59) Alkaline Phosphatase 147 U/L (46-116) Troponin I Quantitative 0.058 ng/mL (0.000-0.055) 0.074 ng/mL (0.000-0.055) 0.071 ng/mL (0.000-0.055) AT-Poe-X-Type Natriuretic Peptide 3681 pg/mL (0-449) Total Protein 7.2 g/dL (6.4-8.2) Albumin 3.3 g/dL (3.4-5.0) Procalcitonin < 0.10 ng/mL (0.00-0.10) Triglycerides Level 90 mg/dL (0-150) Cholesterol Level 102 mg/dL (0-200) LDL Cholesterol, Calculated 45 mg/dL (0-100) VLDL Cholesterol, Calculated 18 mg/dL (0-40) Non-HDL Cholesterol Calculated 63 mg/dL (0-129) HDL Cholesterol 39 mg/dL (40-60) Cholesterol/HDL Ratio 2.6 Review All relevant outside records, renal labs, imaging studies, telemetry/EKG's were reviewed. Images Images Cxr 1. There are right greater than left pleural effusions greater than previous January 2018 exam, adjacent airspace opacity. Pericardial cardiac silhouette is enlarged. Findings may be due to left ventricular failure 06/10 .IMPRESSION: 1. Worsening large right pleural effusion with underlying atelectasis/infiltrate. 2. Unchanged small left pleural effusion. CT scan-- Increasing large right pleural effusion and moderate size left pleural effusion with underlying atelectasis, right greater than left, as described above. A component of pneumonia within the atelectatic lung cannot be excluded. 2. Large hiatal hernia 3. Cardiomegaly with calcific plaquing of the aorta and coronary arteries. VASYL RAHMAN MD Jun 10, 2018 14:32
[2018-06-10 14:47] VITALS: BP 136/59
--- NOTE | 2018-06-10 16:14 | CARD ---
MR#: [id number] Date of Study: 06/10/2018 Ordering Physician: KIERA CHI, Referring Physician: BENTIA ELIZONDO Tech: Basilia Davis RDCS APPROVED REPORT EXAM: Two-dimensional and M-mode echocardiogram with Doppler and color Doppler. Other Information Quality : Good Technically limited study due to INDICATION Congestive Heart Failure 2D DIMENSIONS RVDd2.6 (2.9-3.5cm)Left Atrium(2D)3.7 (1.6-4.0cm) IVSd1.3 (0.7-1.1cm)Aortic Root(2D)2.9 (2.0-3.7cm) LVDd3.6 (3.9-5.9cm)LVOT Diameter2.0 (1.8-2.4cm) PWd1.3 (0.7-1.1cm)LVDs2.5 (2.5-4.0cm) FS (%) 31.3 %SV32.4 ml LVEF(%)60.1 (>50%) Aortic Valve AoV Peak Marc.126.1cm/sAoV VTI24.6cm AO Peak GR.6.4mmHgLVOT Peak Marc.69.9cm/s AO Mean GR.4mmHgAVA (VMAX)1.72cm2 ALVA (VTI)1.90cm2 Mitral Valve MV E Culkndfw58.2cm/sMV DECEL [id number] MV A Sidqouvd03.7cm/sE/A Ratio2.3 Tricuspid Valve TR P. Haxdnmmk149vi/sRAP [id number] TR Peak Gr.91prNfLJLT35jmAs Pulmonary Vein S1 Aopbbgth84.7cm/sD2 Ljirzcan44.4cm/s LEFT VENTRICLE The left ventricle is normal size. There is mild concentric left ventricular hypertrophy. The left ve ntricular systolic function is normal and the ejection fraction is within normal range. The Ejection Fraction is 55-60%. There is normal LV segmental wall motion. Transmitral Doppler flow pattern is Gra de II-pseudonormal filling dynamics. RIGHT VENTRICLE The right ventricle is normal size. The right ventricular systolic function is normal. ATRIA The left atrium size is normal. The right atrium size is normal. The interatrial septum is intact wit h no evidence for an atrial septal defect or patent foramen ovale as noted on 2-D or Doppler imaging. AORTIC VALVE The aortic valve is calcified but opens well. Doppler and Color Flow revealed trace aortic regurgitat ion. There is no significant aortic valvular stenosis. MITRAL VALVE The mitral valve is calcified but opens well. Mitral annular calcification is mild. There is no evide nce of mitral valve prolapse. There is no mitral valve stenosis. Doppler and Color-flow revealed trac e mitral regurgitation. TRICUSPID VALVE The tricuspid valve is normal in structure and function. Doppler and Color Flow revealed mild tricusp id regurgitation. There is moderate pulmonary hypertension. The PA pressure was estimated at 46 mmHg. There is no tricuspid valve stenosis. PULMONIC VALVE The pulmonic valve is not well visualized. Doppler and Color Flow revealed trace pulmonic valvular re gurgitation. There is no pulmonic valvular stenosis. GREAT VESSELS The aortic root is normal in size. The ascending aorta is normal in size. The IVC is normal in size a nd collapses >50% with inspiration. PERICARDIAL EFFUSION There is no evidence of significant pericardial effusion. Critical Notification Critical Value: No <Conclusion> There is mild concentric left ventricular hypertrophy. The left ventricular systolic function is normal and the ejection fraction is within normal range. Th e Ejection Fraction is 55-60%. There is normal LV segmental wall motion. Doppler and Color Flow revealed mild tricuspid regurgitation. There is moderate pulmonary hypertensio n. The PA pressure was estimated at 46 mmHg. Signed by : Al Thomson, Electronically Approved : 06/10/2018 16:13:45
[2018-06-10] MEDS: VANCOMYCIN PER PHARMACY MC PRN ×2 (16:40→16:46)
[2018-06-10 18:36] VITALS: BP 151/95
[2018-06-10] MEDS: ATORVASTATIN CALCIUM 10 MG TABLET. PO SCH (21:16)
[2018-06-10] MEDS: risperiDONE 0.25 MG TABLET. PO SCH (21:17)
[2018-06-10 22:35] VITALS: BP 132/63
[2018-06-11] VITALS (8 sets, daily range): BP systolic 110–156; BP diastolic 38–90
[2018-06-11] MEDS: PIPERACILLIN/TAZOBACTAM 2.25 GM in IV NORMAL SALINE 50ML 50 ML IV SCH ×2 (00:08→05:57)
[2018-06-11 07:05] LABS: BASO # 0.1 x10^3/uL (0.0-0.2); BASO % 1 % (0-3); EOS # 0.1 x10^3/uL (0.0-0.7); EOS % 1 % (0-3); HEMATOCRIT 28.5 % (36.0-47.0); LYMPH % 10 % (24-48); MEAN CORPUSCULAR HEMOGLOBIN 25 pg (25-35); MEAN CORPUSCULAR HGB CONC 32 g/dL (31-37); MEAN CORPUSCULAR VOLUME 77 fL (79-100); MONO # 0.7 x10^3/uL (0.0-1.1); MONO % 7 % (0-9); NEUT % 81 % (31-73); PLATELET COUNT 212 x10^3/uL (140-400); RED BLOOD COUNT 3.68 x10^6/uL (3.50-5.40); RED CELL DISTRIBUTION WIDTH 18.7 % (11.5-14.5)
[2018-06-11 07:28] LABS: ALBUMIN 2.7 g/dL (3.4-5.0); ALBUMIN/GLOBULIN RATIO 0.8 (1.0-1.7); CALCIUM 8.1 mg/dL (8.5-10.1); CREATININE 1.8 mg/dL (0.6-1.0); GFR 26.8; POTASSIUM 3.7 mmol/L (3.5-5.1); TOTAL BILIRUBIN 0.4 mg/dL (0.2-1.0); TOTAL PROTEIN 6.1 g/dL (6.4-8.2)
[2018-06-11] MEDS: ASPIRIN ENTERIC COATED 81 MG TABLET.DR. PO SCH (08:00)
[2018-06-11] MEDS: POTASSIUM CHLORIDE 20 MEQ TABLET.ER. PO SCH (08:00)
[2018-06-11] MEDS: DONEPEZIL HCL 10 MG TABLET. PO SCH (08:41)
[2018-06-11] MEDS: CARVEDILOL 12.5 MG TABLET. PO SCH ×2 (08:41→16:39)
[2018-06-11] MEDS: LACTOBACILLUS RHAMNOSUS GG 1 CAPSULE. PO SCH ×2 (08:42→21:15)
[2018-06-11] MEDS: LOSARTAN POTASSIUM 50 MG TABLET. PO SCH (08:42)
[2018-06-11] MEDS: VANCOMYCIN PER PHARMACY MC PRN (09:29)
--- NOTE | 2018-06-11 09:44 | PDOC ---
CARDIO Progress Notes Date and Time Date of Service 06/11/2018 Time of Evaluation 0940 Subjective Subjective: No Chest Pain, No shortness of breath, No Palpitations, Other ( sitting up, comfortable) Vitals Vitals Vital Signs Date Time Temp Pulse Resp B/P (MAP) Pulse Ox O2 Delivery O2 Flow Rate FiO2 06/11/18 08:42 70 154/70 06/11/18 07:30 Nasal Cannula 2.0 06/11/18 07:20 98.5 18 93 98.5 Weight Weight [ ] Input and Output Intake and Output Intake and Output 06/11/18 07:00 Intake Total 1600 ml Output Total 1050 ml Balance 550 ml Intake Oral 1550 ml IV Total 50 ml Output Urine Total 600 ml Urine/Stool Mix 450 ml # Bowel Movements 4 Laboratory Labs Laboratory Tests Test 06/11/18 06:27 06/11/18 06:29 Iron Level 14 ug/dL (50-170) Total Iron Binding Capacity 393 ug/dL (250-450) Iron Saturation 4 % (15-34) White Blood Count 10.0 x10^3/uL (4.0-11.0) Red Blood Count 3.68 x10^6/uL (3.50-5.40) Hemoglobin 9.0 g/dL (12.0-15.5) Hematocrit 28.5 % (36.0-47.0) Mean Corpuscular Volume 77 fL (79-100) Mean Corpuscular Hemoglobin 25 pg (25-35) Mean Corpuscular Hemoglobin Concent 32 g/dL (31-37) Red Cell Distribution Width 18.7 % (11.5-14.5) Platelet Count 212 x10^3/uL (140-400) Neutrophils (%) (Auto) 81 % (31-73) Lymphocytes (%) (Auto) 10 % (24-48) Monocytes (%) (Auto) 7 % (0-9) Eosinophils (%) (Auto) 1 % (0-3) Basophils (%) (Auto) 1 % (0-3) Neutrophils # (Auto) 8.0 x10^3uL (1.8-7.7) Lymphocytes # (Auto) 1.0 x10^3/uL (1.0-4.8) Monocytes # (Auto) 0.7 x10^3/uL (0.0-1.1) Eosinophils # (Auto) 0.1 x10^3/uL (0.0-0.7) Basophils # (Auto) 0.1 x10^3/uL (0.0-0.2) Sodium Level 143 mmol/L (136-145) Potassium Level 3.7 mmol/L (3.5-5.1) Chloride Level 108 mmol/L (98-107) Carbon Dioxide Level 30 mmol/L (21-32) Anion Gap 5 (6-14) Blood Urea Nitrogen 22 mg/dL (7-20) Creatinine 1.8 mg/dL (0.6-1.0) Estimated GFR (Cockcroft-Gault) 26.8 BUN/Creatinine Ratio 12 (6-20) Glucose Level 125 mg/dL (70-99) Calcium Level 8.1 mg/dL (8.5-10.1) Total Bilirubin 0.4 mg/dL (0.2-1.0) Aspartate Amino Transf (AST/SGOT) 13 U/L (15-37) Alanine Aminotransferase (ALT/SGPT) 18 U/L (14-59) Alkaline Phosphatase 102 U/L (46-116) Total Protein 6.1 g/dL (6.4-8.2) Albumin 2.7 g/dL (3.4-5.0) Albumin/Globulin Ratio 0.8 (1.0-1.7) Physical Exam HEENT: Neck Supple W Full Motion Chest: Symmetric LUNGS: Other (diminished with basilar crackles) Heart: RRR (SR no significant ectopies) Abdomen: Soft N/T Extremities: No Calf Tenderness, Other (1+ bilateral LE pitting edema) Neurology: alert, follow commands Assessment Assessment 1. Recurrent pleural effusion: pulmonary following 2. CAD; nonobstructive with recent LHC 3. Acute on chronic diastolic CHF: multifactorial including uncontrolled HTN. EF and WM nml 4. MIQUEL on CKD3: nephrology following 5. Mildly elevated troponin: peaked at 0.07, Type 2 demand mediated 6. HTN: controlled 7. HLP 8. Dementia/Debility/WC bound/deconditioning 9. Moderate pulmonary HTN Recommendations 1. No SOA despite significant pleural effusion and no significant peripheral edema, awiaitng thoracentesis for today 2. Continue current BP regimen. Will reeval lasix need post thoracentesis. 5. Continue with secondary prevention. GALIMBA,JHUNNE M [employer] SOLUTION ARCHITECT Jun 11, 2018 09:44
--- NOTE | 2018-06-11 09:47 | PDOC ---
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 OBJECTIVE Vital Signs Vital Signs Date Time Temp Pulse Resp B/P (MAP) Pulse Ox O2 Delivery O2 Flow Rate FiO2 06/11/18 08:42 70 154/70 06/11/18 07:30 Nasal Cannula 2.0 06/11/18 07:20 98.5 18 93 98.5 I & 0 Intake and Output 06/11/18 07:00 Intake Total 1600 ml Output Total 1050 ml Balance 550 ml Intake Oral 1550 ml IV Total 50 ml Output Urine Total 600 ml Urine/Stool Mix 450 ml # Bowel Movements 4 PHYSICAL EXAM Physical Exam General: NAD HEENT: OM Lungs: CTA ant , non labored Heart: Regular rate Abdomen: Soft, No tenderness Extremities: trace to 1+ bilateral LE pitting edema) Skin: No rash Neuro: AXO - no henry, No CVA or SP tenderness DIAGNOSIS/ASSESSMENT Assessment & Plan MIQUEL on CKD- Likely cardiorenal E-Lytes and acid base stable Lasix held for Now, renal function stable Good uop CKD stage 3- baseline Creat 1.3-1.4 Recurrent pleural effusion- S/P Thoracentesis this am -1.2 L of pleural fluid was aspirated. Pul following CT- Increasing large right pleural effusion and moderate size left pleural effusion CAD; nonobstructive with recent LHC in january. Acute on chronic diastolic CHF: multifactorial including uncontrolled HTN EF Dementia/Debility//deconditioning DW Pt and RN at bedside COMMENT/RELEVANT DATA Meds Current Medications Medications (Trade) Dose Ordered Sig/Kerrie Start Time Stop Time Status Last Admin Dose Admin Acetaminophen (Tylenol) 650 mg PRN Q4HRS PRN 06/09/18 17:30 06/10/18 17:29 DC Aspirin (Ecotrin) 81 mg DAILYWBKFT 06/10/18 11:30 06/10/18 13:03 81 MG Atorvastatin Calcium (Lipitor) 5 mg QHS 06/10/18 21:00 06/10/18 21:16 5 MG Carvedilol (Coreg) 12.5 mg BIDWMEALS 06/10/18 10:30 06/11/18 08:41 12.5 MG Cholestyramine Resin (Questran Light) 2 gm Q24H 06/10/18 13:00 06/10/18 13:04 2 GM Donepezil HCl (Aricept) 10 mg DAILY 06/10/18 10:30 06/11/18 08:41 10 MG Furosemide (Lasix) 20 mg 1X ONCE 06/09/18 19:00 06/09/18 19:01 UNV Labetalol HCl (Normodyne Iv Push) 20 mg PRN Q2HR PRN 06/10/18 11:00 Lactobacillus Rhamnosus (Culturelle) 1 cap BID 06/11/18 09:00 06/11/18 08:42 1 CAP Losartan Potassium (Cozaar) 50 mg DAILY 06/10/18 11:00 06/11/18 08:42 50 MG Nitroglycerin (Nitro-Bid Oint) 1 inch 1X ONCE 06/09/18 16:30 06/09/18 16:32 DC 06/09/18 17:37 1 INCH Ondansetron HCl (Zofran) 4 mg PRN Q8HRS PRN 06/09/18 17:30 06/10/18 17:29 DC Piperacillin Sod/ Tazobactam Sod (Zosyn Per Pharmacy) 1 each PRN DAILY PRN 06/09/18 17:30 Piperacillin Sod/ Tazobactam Sod 2.25 gm/Sodium Chloride 50 ml @ 100 mls/hr Q6HRS 06/10/18 00:00 06/11/18 05:57 100 MLS/HR Piperacillin Sod/ Tazobactam Sod 3.375 gm/Sodium Chloride 50 ml @ 100 mls/hr 1X ONCE 06/09/18 18:00 06/09/18 18:29 DC 06/09/18 17:44 100 MLS/HR Potassium Chloride (Klor-Con) 20 meq DAILYWBKFT 06/10/18 10:30 06/10/18 10:58 20 MEQ Risperidone (RisperDAL) 0.5 mg HS 06/10/18 21:00 06/10/18 21:17 0.5 MG Vancomycin HCl (Vanco Per Pharmacy) 1 each PRN DAILY PRN 06/09/18 17:30 06/11/18 09:29 1 EACH Vancomycin HCl 1.25 gm/Sodium Chloride 250 ml @ 167 mls/hr Q48H 06/11/18 19:00 Vancomycin HCl 2 gm/Sodium Chloride 500 ml @ 250 mls/hr 1X ONCE 06/09/18 18:30 06/09/18 20:29 DC 06/09/18 19:03 250 MLS/HR Lab Laboratory Tests Test 06/11/18 06:27 06/11/18 06:29 Iron Level 14 ug/dL (50-170) Total Iron Binding Capacity 393 ug/dL (250-450) Iron Saturation 4 % (15-34) White Blood Count 10.0 x10^3/uL (4.0-11.0) Red Blood Count 3.68 x10^6/uL (3.50-5.40) Hemoglobin 9.0 g/dL (12.0-15.5) Hematocrit 28.5 % (36.0-47.0) Mean Corpuscular Volume 77 fL (79-100) Mean Corpuscular Hemoglobin 25 pg (25-35) Mean Corpuscular Hemoglobin Concent 32 g/dL (31-37) Red Cell Distribution Width 18.7 % (11.5-14.5) Platelet Count 212 x10^3/uL (140-400) Neutrophils (%) (Auto) 81 % (31-73) Lymphocytes (%) (Auto) 10 % (24-48) Monocytes (%) (Auto) 7 % (0-9) Eosinophils (%) (Auto) 1 % (0-3) Basophils (%) (Auto) 1 % (0-3) Neutrophils # (Auto) 8.0 x10^3uL (1.8-7.7) Lymphocytes # (Auto) 1.0 x10^3/uL (1.0-4.8) Monocytes # (Auto) 0.7 x10^3/uL (0.0-1.1) Eosinophils # (Auto) 0.1 x10^3/uL (0.0-0.7) Basophils # (Auto) 0.1 x10^3/uL (0.0-0.2) Sodium Level 143 mmol/L (136-145) Potassium Level 3.7 mmol/L (3.5-5.1) Chloride Level 108 mmol/L (98-107) Carbon Dioxide Level 30 mmol/L (21-32) Anion Gap 5 (6-14) Blood Urea Nitrogen 22 mg/dL (7-20) Creatinine 1.8 mg/dL (0.6-1.0) Estimated GFR (Cockcroft-Gault) 26.8 BUN/Creatinine Ratio 12 (6-20) Glucose Level 125 mg/dL (70-99) Calcium Level 8.1 mg/dL (8.5-10.1) Total Bilirubin 0.4 mg/dL (0.2-1.0) Aspartate Amino Transf (AST/SGOT) 13 U/L (15-37) Alanine Aminotransferase (ALT/SGPT) 18 U/L (14-59) Alkaline Phosphatase 102 U/L (46-116) Total Protein 6.1 g/dL (6.4-8.2) Albumin 2.7 g/dL (3.4-5.0) Albumin/Globulin Ratio 0.8 (1.0-1.7) Results All relevant outside records, renal labs, imaging studies, telemetry/EKG's were reviewed. VASYL RAHMAN MD Jun 11, 2018 09:47
--- NOTE | 2018-06-11 10:59 | RAD ---
Ultrasound-guided right-sided thoracentesis 06/11/2018 Indication: Right Pleural Effusion Procedure: Informed consent was obtained. A timeout procedure was performed. Sonographic evaluation of the right chest was performed demonstrating moderate pleural effusion. The right posterior chest was prepped and draped in sterile fashion. 1% lidocaine without epinephrine was administered for local anesthesia. Real-time ultrasonographic guidance was used in passing a 5 Syrian Yueh catheter into the right pleural space. 1.2 L of pleural fluid was aspirated. Samples of this fluid were sent for further evaluation per ordering physician request. The catheter was removed and pressure held to achieve hemostasis. A sterile dressing was applied. No immediate complications were identified. The patient tolerated the procedure well. Impression: Right sided ultrasound-guided thoracentesis
[2018-06-11] MEDS ORDERED: IRON SUCROSE COMPLEX 200 MG in IV NORMAL SALINE 100ML 100 ML IV ONE (12:30)
--- NOTE | 2018-06-11 13:33 | PDOC ---
PROGRESS NOTES Chief Complaint Chief Complaint 1. Acute hypoxic respiratory failure 2. Right-sided pleural effusion w. prior thoracentesis in January and it was a transudate. 3. chronic diastolic CHF 4. CKD 3 . 5. dementia, History of Present Illness History of Present Illness thoracentesis today 6 min walk may take awhile for Vitals Vitals Vital Signs Date Time Temp Pulse Resp B/P (MAP) Pulse Ox O2 Delivery O2 Flow Rate FiO2 06/11/18 11:25 98.5 68 20 124/62 (82) 96 Nasal Cannula 2.0 98.5 Physical Exam General: Alert, mild distress Heart: Regular rate (SR), Other (distant heart sounds) Lungs: Other Abdomen: Normal bowel sounds Extremities: No cyanosis Skin: No rashes Labs LABS Laboratory Tests Test 06/11/18 06:27 06/11/18 06:29 Iron Level 14 ug/dL (50-170) Total Iron Binding Capacity 393 ug/dL (250-450) Iron Saturation 4 % (15-34) White Blood Count 10.0 x10^3/uL (4.0-11.0) Red Blood Count 3.68 x10^6/uL (3.50-5.40) Hemoglobin 9.0 g/dL (12.0-15.5) Hematocrit 28.5 % (36.0-47.0) Mean Corpuscular Volume 77 fL (79-100) Mean Corpuscular Hemoglobin 25 pg (25-35) Mean Corpuscular Hemoglobin Concent 32 g/dL (31-37) Red Cell Distribution Width 18.7 % (11.5-14.5) Platelet Count 212 x10^3/uL (140-400) Neutrophils (%) (Auto) 81 % (31-73) Lymphocytes (%) (Auto) 10 % (24-48) Monocytes (%) (Auto) 7 % (0-9) Eosinophils (%) (Auto) 1 % (0-3) Basophils (%) (Auto) 1 % (0-3) Neutrophils # (Auto) 8.0 x10^3uL (1.8-7.7) Lymphocytes # (Auto) 1.0 x10^3/uL (1.0-4.8) Monocytes # (Auto) 0.7 x10^3/uL (0.0-1.1) Eosinophils # (Auto) 0.1 x10^3/uL (0.0-0.7) Basophils # (Auto) 0.1 x10^3/uL (0.0-0.2) Sodium Level 143 mmol/L (136-145) Potassium Level 3.7 mmol/L (3.5-5.1) Chloride Level 108 mmol/L (98-107) Carbon Dioxide Level 30 mmol/L (21-32) Anion Gap 5 (6-14) Blood Urea Nitrogen 22 mg/dL (7-20) Creatinine 1.8 mg/dL (0.6-1.0) Estimated GFR (Cockcroft-Gault) 26.8 BUN/Creatinine Ratio 12 (6-20) Glucose Level 125 mg/dL (70-99) Calcium Level 8.1 mg/dL (8.5-10.1) Total Bilirubin 0.4 mg/dL (0.2-1.0) Aspartate Amino Transf (AST/SGOT) 13 U/L (15-37) Alanine Aminotransferase (ALT/SGPT) 18 U/L (14-59) Alkaline Phosphatase 102 U/L (46-116) Total Protein 6.1 g/dL (6.4-8.2) Albumin 2.7 g/dL (3.4-5.0) Albumin/Globulin Ratio 0.8 (1.0-1.7) Assessment and Plan Assessmemt and Plan Problems Medical Problems: (1) Congestive heart failure Status: Acute (2) Pleural effusion Status: Acute Comment Review of Relevant I have reviewed the following items quintin (where applicable) has been applied. Labs Laboratory Tests Test 06/09/18 16:25 06/09/18 20:35 06/09/18 23:25 06/10/18 05:40 White Blood Count 12.4 x10^3/uL (4.0-11.0) 11.0 x10^3/uL (4.0-11.0) Red Blood Count 4.28 x10^6/uL (3.50-5.40) 3.86 x10^6/uL (3.50-5.40) Hemoglobin 10.3 g/dL (12.0-15.5) 9.1 g/dL (12.0-15.5) Hematocrit 32.9 % (36.0-47.0) 29.7 % (36.0-47.0) Mean Corpuscular Volume 77 fL (79-100) 77 fL (79-100) Mean Corpuscular Hemoglobin 24 pg (25-35) 24 pg (25-35) Mean Corpuscular Hemoglobin Concent 31 g/dL (31-37) 31 g/dL (31-37) Red Cell Distribution Width 18.7 % (11.5-14.5) 18.5 % (11.5-14.5) Platelet Count 271 x10^3/uL (140-400) 208 x10^3/uL (140-400) Neutrophils (%) (Auto) 80 % (31-73) 80 % (31-73) Lymphocytes (%) (Auto) 11 % (24-48) 11 % (24-48) Monocytes (%) (Auto) 8 % (0-9) 8 % (0-9) Eosinophils (%) (Auto) 0 % (0-3) 1 % (0-3) Basophils (%) (Auto) 1 % (0-3) 1 % (0-3) Neutrophils # (Auto) 10.0 x10^3uL (1.8-7.7) 8.8 x10^3uL (1.8-7.7) Lymphocytes # (Auto) 1.4 x10^3/uL (1.0-4.8) 1.2 x10^3/uL (1.0-4.8) Monocytes # (Auto) 1.0 x10^3/uL (0.0-1.1) 0.9 x10^3/uL (0.0-1.1) Eosinophils # (Auto) 0.0 x10^3/uL (0.0-0.7) 0.1 x10^3/uL (0.0-0.7) Basophils # (Auto) 0.1 x10^3/uL (0.0-0.2) 0.1 x10^3/uL (0.0-0.2) Prothrombin Time 14.8 SEC (11.7-14.0) Prothromb Time International Ratio 1.2 (0.8-1.1) Activated Partial Thromboplast Time 34 SEC (24-38) Sodium Level 142 mmol/L (136-145) 144 mmol/L (136-145) Potassium Level 4.0 mmol/L (3.5-5.1) 3.5 mmol/L (3.5-5.1) Chloride Level 106 mmol/L (98-107) 108 mmol/L (98-107) Carbon Dioxide Level 29 mmol/L (21-32) 32 mmol/L (21-32) Anion Gap 7 (6-14) 4 (6-14) Blood Urea Nitrogen 23 mg/dL (7-20) 21 mg/dL (7-20) Creatinine 1.7 mg/dL (0.6-1.0) 1.8 mg/dL (0.6-1.0) Estimated GFR (Cockcroft-Gault) 28.6 26.8 Glucose Level 136 mg/dL (70-99) 112 mg/dL (70-99) Calcium Level 8.7 mg/dL (8.5-10.1) 8.3 mg/dL (8.5-10.1) Total Bilirubin 0.5 mg/dL (0.2-1.0) Direct Bilirubin 0.1 mg/dL (0.0-0.2) Aspartate Amino Transf (AST/SGOT) 22 U/L (15-37) Alanine Aminotransferase (ALT/SGPT) 25 U/L (14-59) Alkaline Phosphatase 147 U/L (46-116) Troponin I Quantitative 0.058 ng/mL (0.000-0.055) 0.074 ng/mL (0.000-0.055) 0.071 ng/mL (0.000-0.055) AW-Lko-F-Type Natriuretic Peptide 3681 pg/mL (0-449) Total Protein 7.2 g/dL (6.4-8.2) Albumin 3.3 g/dL (3.4-5.0) Procalcitonin < 0.10 ng/mL (0.00-0.10) Triglycerides Level 90 mg/dL (0-150) Cholesterol Level 102 mg/dL (0-200) LDL Cholesterol, Calculated 45 mg/dL (0-100) VLDL Cholesterol, Calculated 18 mg/dL (0-40) Non-HDL Cholesterol Calculated 63 mg/dL (0-129) HDL Cholesterol 39 mg/dL (40-60) Cholesterol/HDL Ratio 2.6 Test 06/11/18 06:27 06/11/18 06:29 Iron Level 14 ug/dL (50-170) Total Iron Binding Capacity 393 ug/dL (250-450) Iron Saturation 4 % (15-34) White Blood Count 10.0 x10^3/uL (4.0-11.0) Red Blood Count 3.68 x10^6/uL (3.50-5.40) Hemoglobin 9.0 g/dL (12.0-15.5) Hematocrit 28.5 % (36.0-47.0) Mean Corpuscular Volume 77 fL (79-100) Mean Corpuscular Hemoglobin 25 pg (25-35) Mean Corpuscular Hemoglobin Concent 32 g/dL (31-37) Red Cell Distribution Width 18.7 % (11.5-14.5) Platelet Count 212 x10^3/uL (140-400) Neutrophils (%) (Auto) 81 % (31-73) Lymphocytes (%) (Auto) 10 % (24-48) Monocytes (%) (Auto) 7 % (0-9) Eosinophils (%) (Auto) 1 % (0-3) Basophils (%) (Auto) 1 % (0-3) Neutrophils # (Auto) 8.0 x10^3uL (1.8-7.7) Lymphocytes # (Auto) 1.0 x10^3/uL (1.0-4.8) Monocytes # (Auto) 0.7 x10^3/uL (0.0-1.1) Eosinophils # (Auto) 0.1 x10^3/uL (0.0-0.7) Basophils # (Auto) 0.1 x10^3/uL (0.0-0.2) Sodium Level 143 mmol/L (136-145) Potassium Level 3.7 mmol/L (3.5-5.1) Chloride Level 108 mmol/L (98-107) Carbon Dioxide Level 30 mmol/L (21-32) Anion Gap 5 (6-14) Blood Urea Nitrogen 22 mg/dL (7-20) Creatinine 1.8 mg/dL (0.6-1.0) Estimated GFR (Cockcroft-Gault) 26.8 BUN/Creatinine Ratio 12 (6-20) Glucose Level 125 mg/dL (70-99) Calcium Level 8.1 mg/dL (8.5-10.1) Total Bilirubin 0.4 mg/dL (0.2-1.0) Aspartate Amino Transf (AST/SGOT) 13 U/L (15-37) Alanine Aminotransferase (ALT/SGPT) 18 U/L (14-59) Alkaline Phosphatase 102 U/L (46-116) Total Protein 6.1 g/dL (6.4-8.2) Albumin 2.7 g/dL (3.4-5.0) Albumin/Globulin Ratio 0.8 (1.0-1.7) Laboratory Tests Test 06/11/18 06:27 06/11/18 06:29 Iron Level 14 ug/dL (50-170) Total Iron Binding Capacity 393 ug/dL (250-450) Iron Saturation 4 % (15-34) White Blood Count 10.0 x10^3/uL (4.0-11.0) Red Blood Count 3.68 x10^6/uL (3.50-5.40) Hemoglobin 9.0 g/dL (12.0-15.5) Hematocrit 28.5 % (36.0-47.0) Mean Corpuscular Volume 77 fL (79-100) Mean Corpuscular Hemoglobin 25 pg (25-35) Mean Corpuscular Hemoglobin Concent 32 g/dL (31-37) Red Cell Distribution Width 18.7 % (11.5-14.5) Platelet Count 212 x10^3/uL (140-400) Neutrophils (%) (Auto) 81 % (31-73) Lymphocytes (%) (Auto) 10 % (24-48) Monocytes (%) (Auto) 7 % (0-9) Eosinophils (%) (Auto) 1 % (0-3) Basophils (%) (Auto) 1 % (0-3) Neutrophils # (Auto) 8.0 x10^3uL (1.8-7.7) Lymphocytes # (Auto) 1.0 x10^3/uL (1.0-4.8) Monocytes # (Auto) 0.7 x10^3/uL (0.0-1.1) Eosinophils # (Auto) 0.1 x10^3/uL (0.0-0.7) Basophils # (Auto) 0.1 x10^3/uL (0.0-0.2) Sodium Level 143 mmol/L (136-145) Potassium Level 3.7 mmol/L (3.5-5.1) Chloride Level 108 mmol/L (98-107) Carbon Dioxide Level 30 mmol/L (21-32) Anion Gap 5 (6-14) Blood Urea Nitrogen 22 mg/dL (7-20) Creatinine 1.8 mg/dL (0.6-1.0) Estimated GFR (Cockcroft-Gault) 26.8 BUN/Creatinine Ratio 12 (6-20) Glucose Level 125 mg/dL (70-99) Calcium Level 8.1 mg/dL (8.5-10.1) Total Bilirubin 0.4 mg/dL (0.2-1.0) Aspartate Amino Transf (AST/SGOT) 13 U/L (15-37) Alanine Aminotransferase (ALT/SGPT) 18 U/L (14-59) Alkaline Phosphatase 102 U/L (46-116) Total Protein 6.1 g/dL (6.4-8.2) Albumin 2.7 g/dL (3.4-5.0) Albumin/Globulin Ratio 0.8 (1.0-1.7) Medications Current Medications Nitroglycerin (Nitro-Bid Oint) 1 inch 1X ONCE TP Last administered on at 17:37; Start 06/09/18 at 16:30; Stop 06/09/18 at 16:32; Status DC Vancomycin HCl (Vanco Per Pharmacy) 1 each PRN DAILY PRN MC SEE COMMENTS Last administered on 06/11/18at 09:29; Start 06/09/18 at 17:30; Stop 06/11/18 at 12:22; Status DC Piperacillin Sod/ Tazobactam Sod (Zosyn Per Pharmacy) 1 each PRN DAILY PRN MC SEE COMMENTS; Start 06/09/18 at 17:30; Stop 06/11/18 at 13:02; Status DC Ondansetron HCl (Zofran) 4 mg PRN Q8HRS PRN IV NAUSEA/VOMITING; Start 06/09/18 at 17:30; Stop 06/10/18 at 17:29; Status DC Acetaminophen (Tylenol) 650 mg PRN Q4HRS PRN PO FEVER; Start 06/09/18 at 17:30; Stop 06/10/18 at 17:29; Status DC Vancomycin HCl 2 gm/Sodium Chloride 500 ml @ 250 mls/hr 1X ONCE IV Last administered on 06/09/18at 19:03; Start 06/09/18 at 18:30; Stop 06/09/18 at 20:29; Status DC Piperacillin Sod/ Tazobactam Sod 3.375 gm/Sodium Chloride 50 ml @ 100 mls/hr 1X ONCE IV Last administered on 06/09/18at 17:44; Start 06/09/18 at 18:00; Stop 06/09/18 at 18:29; Status DC Furosemide (Lasix) 40 mg 1X ONCE IVP Last administered on 06/09/18at 21:35; Start 06/09/18 at 18:30; Stop 06/09/18 at 18:31; Status DC Furosemide (Lasix) 20 mg 1X ONCE IVP ; Start 06/09/18 at 19:00; Stop 06/09/18 at 19:01; Status UNV Piperacillin Sod/ Tazobactam Sod 2.25 gm/Sodium Chloride 50 ml @ 100 mls/hr Q6HRS IV Last administered on 06/11/18at 05:57; Start 06/10/18 at 00:00; Stop 06/11 at 12:21; Status DC Vancomycin HCl 1.25 gm/Sodium Chloride 250 ml @ 167 mls/hr Q48H IV ; Start 06/11 at 19:00; Stop 06/11/18 at 19:00; Status DC Carvedilol (Coreg) 12.5 mg BIDWMEALS PO Last administered on 06/11/18at 08:41; Start 06/10/18 at 10:30 Cholestyramine Resin (Questran Light) 2 gm Q24H PO Last administered on at 13:04; Start 06/10/18 at 13:00 Donepezil HCl (Aricept) 10 mg DAILY PO Last administered on 06/11/18at 08:41; Start 06/10/18 at 10:30 Potassium Chloride (Klor-Con) 20 meq DAILYWBKFT PO Last administered on at 10:58; Start 06/10/18 at 10:30 Atorvastatin Calcium (Lipitor) 5 mg QHS PO Last administered on 06/10/18at 21:16 ; Start 06/10/18 at 21:00 Risperidone (RisperDAL) 0.5 mg DAILY PO ; Start 06/10/18 at 10:30; Stop 06/10/18 at 10:30; Status DC Risperidone (RisperDAL) 0.5 mg HS PO Last administered on 06/10/18at 21:17; Start 06/10/18 at 21:00 Losartan Potassium (Cozaar) 50 mg DAILY PO Last administered on 06/11/18at 08:42 ; Start 06/10/18 at 11:00 Aspirin (Ecotrin) 81 mg DAILYWBKFT PO Last administered on 06/10/18at 13:03; Start 06/10/18 at 11:30 Labetalol HCl (Normodyne Iv Push) 20 mg PRN Q2HR PRN IVP HYPERTENSION, SEE COMMENTS; Start 06/10/18 at 11:00 Lactobacillus Rhamnosus (Culturelle) 1 cap BID PO Last administered on at 08:42; Start 06/11/18 at 09:00 Iron Sucrose 200 mg/Sodium Chloride 110 ml @ 55 mls/hr 1X ONCE IV ; Start 06/11 at 12:30; Stop 06/11/18 at 14:29 Active Scripts Active Furosemide 40 Mg Tablet 40 Mg PO DAILY 30 Days Potassium Chloride 10 Meq Capsule.er 20 Meq PO DAILY 14 Days Reported Losartan Potassium 100 Mg Tablet 100 Mg PO DAILY Polysporin Topical Oint (Bacitracin/Polymyxin B Sulfate) 28.3 Gm Oint...g. 1 Keke TP BID DIRECTED BY PHYSICIAN Aspirin 325 Mg Tablet 325 Mg PO DAILY Cholestyramine Packet (Cholestyramine (With Sugar)) 4 Gm Powd.pack 2 Gm PO DAILY Donepezil Hcl 10 Mg Tablet 10 Mg PO DAILY Risperidone 0.5 Mg Tablet 1 Tab PO DAILY Carvedilol 12.5 Mg Tablet 12.5 Mg PO BIDWMEALS Pravastatin Sodium 20 Mg Tablet 20 Mg PO QHS Amlodipine Besylate 2.5 Mg Tablet 2.5 Mg PO DAILY Vitals/I & O Vital Sign - Last 24 Hours 06/10/18 06/10/18 06/10/18 06/10/18 14:47 18:29 18:36 20:14 Temp 98.5 98.4 98.5 98.4 Pulse 72 72 73 Resp 16 18 B/P (MAP) 136/59 (84) 136/59 151/95 (113) Pulse Ox 97 96 O2 Delivery Nasal Cannula Nasal Cannula Nasal Cannula O2 Flow Rate 2.0 2.0 2.0 06/10/18 06/11/18 06/11/18 06/11/18 22:35 03:00 07:20 07:30 Temp 99.3 98.7 98.5 99.3 98.7 98.5 Pulse 70 76 70 Resp 18 18 B/P (MAP) 132/63 (86) 134/63 (86) 154/70 (98) Pulse Ox 96 96 93 O2 Delivery Nasal Cannula Nasal Cannula Nasal Cannula Nasal Cannula O2 Flow Rate 2.0 2.0 2.0 2.0 06/11/18 06/11/18 06/11/18 06/11/18 08:41 08:42 10:01 10:15 Pulse 70 70 67 74 Resp 20 22 B/P (MAP) 154/70 154/70 141/64 (89) 127/60 (82) Pulse Ox 98 O2 Delivery Nasal Cannula 06/11/18 11:25 Temp 98.5 98.5 Pulse 68 Resp 20 B/P (MAP) 124/62 (82) Pulse Ox 96 O2 Delivery Nasal Cannula O2 Flow Rate 2.0 Intake and Output 06/10/18 06/10/18 06/11/18 15:00 23:00 07:00 Intake Total 240 ml 1360 ml 0 ml Output Total 375 ml 475 ml 200 ml Balance -135 ml 885 ml -200 ml JEROME ZURITA MD Jun 11, 2018 13:33
[2018-06-11] MEDS: CHOLESTYRAMINE/ASPARTAME 4 GM PACKET PO SCH (13:38)
--- NOTE | 2018-06-11 13:42 | PDOC ---
PULMONARY PROGRESS NOTES Subjective feels better after thoracentesis. 1.2 litres removed today Vitals Vital Signs Date Time Temp Pulse Resp B/P (MAP) Pulse Ox O2 Delivery O2 Flow Rate FiO2 06/11/18 11:25 98.5 68 20 124/62 (82) 96 Nasal Cannula 2.0 98.5 ROS: No Chest Pain General: Alert, No acute distress Lungs: Other (decrease bases) Cardiovascular: S1, S2 Abdomen: Soft Neuro Exam: Alert Extremities: Other (1+edema) Labs Laboratory Tests Test 06/09/18 16:25 06/09/18 20:35 06/09/18 23:25 06/10/18 05:40 White Blood Count 12.4 x10^3/uL (4.0-11.0) 11.0 x10^3/uL (4.0-11.0) Red Blood Count 4.28 x10^6/uL (3.50-5.40) 3.86 x10^6/uL (3.50-5.40) Hemoglobin 10.3 g/dL (12.0-15.5) 9.1 g/dL (12.0-15.5) Hematocrit 32.9 % (36.0-47.0) 29.7 % (36.0-47.0) Mean Corpuscular Volume 77 fL (79-100) 77 fL (79-100) Mean Corpuscular Hemoglobin 24 pg (25-35) 24 pg (25-35) Mean Corpuscular Hemoglobin Concent 31 g/dL (31-37) 31 g/dL (31-37) Red Cell Distribution Width 18.7 % (11.5-14.5) 18.5 % (11.5-14.5) Platelet Count 271 x10^3/uL (140-400) 208 x10^3/uL (140-400) Neutrophils (%) (Auto) 80 % (31-73) 80 % (31-73) Lymphocytes (%) (Auto) 11 % (24-48) 11 % (24-48) Monocytes (%) (Auto) 8 % (0-9) 8 % (0-9) Eosinophils (%) (Auto) 0 % (0-3) 1 % (0-3) Basophils (%) (Auto) 1 % (0-3) 1 % (0-3) Neutrophils # (Auto) 10.0 x10^3uL (1.8-7.7) 8.8 x10^3uL (1.8-7.7) Lymphocytes # (Auto) 1.4 x10^3/uL (1.0-4.8) 1.2 x10^3/uL (1.0-4.8) Monocytes # (Auto) 1.0 x10^3/uL (0.0-1.1) 0.9 x10^3/uL (0.0-1.1) Eosinophils # (Auto) 0.0 x10^3/uL (0.0-0.7) 0.1 x10^3/uL (0.0-0.7) Basophils # (Auto) 0.1 x10^3/uL (0.0-0.2) 0.1 x10^3/uL (0.0-0.2) Prothrombin Time 14.8 SEC (11.7-14.0) Prothromb Time International Ratio 1.2 (0.8-1.1) Activated Partial Thromboplast Time 34 SEC (24-38) Sodium Level 142 mmol/L (136-145) 144 mmol/L (136-145) Potassium Level 4.0 mmol/L (3.5-5.1) 3.5 mmol/L (3.5-5.1) Chloride Level 106 mmol/L (98-107) 108 mmol/L (98-107) Carbon Dioxide Level 29 mmol/L (21-32) 32 mmol/L (21-32) Anion Gap 7 (6-14) 4 (6-14) Blood Urea Nitrogen 23 mg/dL (7-20) 21 mg/dL (7-20) Creatinine 1.7 mg/dL (0.6-1.0) 1.8 mg/dL (0.6-1.0) Estimated GFR (Cockcroft-Gault) 28.6 26.8 Glucose Level 136 mg/dL (70-99) 112 mg/dL (70-99) Calcium Level 8.7 mg/dL (8.5-10.1) 8.3 mg/dL (8.5-10.1) Total Bilirubin 0.5 mg/dL (0.2-1.0) Direct Bilirubin 0.1 mg/dL (0.0-0.2) Aspartate Amino Transf (AST/SGOT) 22 U/L (15-37) Alanine Aminotransferase (ALT/SGPT) 25 U/L (14-59) Alkaline Phosphatase 147 U/L (46-116) Troponin I Quantitative 0.058 ng/mL (0.000-0.055) 0.074 ng/mL (0.000-0.055) 0.071 ng/mL (0.000-0.055) CZ-Xmm-D-Type Natriuretic Peptide 3681 pg/mL (0-449) Total Protein 7.2 g/dL (6.4-8.2) Albumin 3.3 g/dL (3.4-5.0) Procalcitonin < 0.10 ng/mL (0.00-0.10) Triglycerides Level 90 mg/dL (0-150) Cholesterol Level 102 mg/dL (0-200) LDL Cholesterol, Calculated 45 mg/dL (0-100) VLDL Cholesterol, Calculated 18 mg/dL (0-40) Non-HDL Cholesterol Calculated 63 mg/dL (0-129) HDL Cholesterol 39 mg/dL (40-60) Cholesterol/HDL Ratio 2.6 Test 06/11/18 06:27 06/11/18 06:29 Iron Level 14 ug/dL (50-170) Total Iron Binding Capacity 393 ug/dL (250-450) Iron Saturation 4 % (15-34) White Blood Count 10.0 x10^3/uL (4.0-11.0) Red Blood Count 3.68 x10^6/uL (3.50-5.40) Hemoglobin 9.0 g/dL (12.0-15.5) Hematocrit 28.5 % (36.0-47.0) Mean Corpuscular Volume 77 fL (79-100) Mean Corpuscular Hemoglobin 25 pg (25-35) Mean Corpuscular Hemoglobin Concent 32 g/dL (31-37) Red Cell Distribution Width 18.7 % (11.5-14.5) Platelet Count 212 x10^3/uL (140-400) Neutrophils (%) (Auto) 81 % (31-73) Lymphocytes (%) (Auto) 10 % (24-48) Monocytes (%) (Auto) 7 % (0-9) Eosinophils (%) (Auto) 1 % (0-3) Basophils (%) (Auto) 1 % (0-3) Neutrophils # (Auto) 8.0 x10^3uL (1.8-7.7) Lymphocytes # (Auto) 1.0 x10^3/uL (1.0-4.8) Monocytes # (Auto) 0.7 x10^3/uL (0.0-1.1) Eosinophils # (Auto) 0.1 x10^3/uL (0.0-0.7) Basophils # (Auto) 0.1 x10^3/uL (0.0-0.2) Sodium Level 143 mmol/L (136-145) Potassium Level 3.7 mmol/L (3.5-5.1) Chloride Level 108 mmol/L (98-107) Carbon Dioxide Level 30 mmol/L (21-32) Anion Gap 5 (6-14) Blood Urea Nitrogen 22 mg/dL (7-20) Creatinine 1.8 mg/dL (0.6-1.0) Estimated GFR (Cockcroft-Gault) 26.8 BUN/Creatinine Ratio 12 (6-20) Glucose Level 125 mg/dL (70-99) Calcium Level 8.1 mg/dL (8.5-10.1) Total Bilirubin 0.4 mg/dL (0.2-1.0) Aspartate Amino Transf (AST/SGOT) 13 U/L (15-37) Alanine Aminotransferase (ALT/SGPT) 18 U/L (14-59) Alkaline Phosphatase 102 U/L (46-116) Total Protein 6.1 g/dL (6.4-8.2) Albumin 2.7 g/dL (3.4-5.0) Albumin/Globulin Ratio 0.8 (1.0-1.7) Laboratory Tests Test 06/11/18 06:27 06/11/18 06:29 Iron Level 14 ug/dL (50-170) Total Iron Binding Capacity 393 ug/dL (250-450) Iron Saturation 4 % (15-34) White Blood Count 10.0 x10^3/uL (4.0-11.0) Red Blood Count 3.68 x10^6/uL (3.50-5.40) Hemoglobin 9.0 g/dL (12.0-15.5) Hematocrit 28.5 % (36.0-47.0) Mean Corpuscular Volume 77 fL (79-100) Mean Corpuscular Hemoglobin 25 pg (25-35) Mean Corpuscular Hemoglobin Concent 32 g/dL (31-37) Red Cell Distribution Width 18.7 % (11.5-14.5) Platelet Count 212 x10^3/uL (140-400) Neutrophils (%) (Auto) 81 % (31-73) Lymphocytes (%) (Auto) 10 % (24-48) Monocytes (%) (Auto) 7 % (0-9) Eosinophils (%) (Auto) 1 % (0-3) Basophils (%) (Auto) 1 % (0-3) Neutrophils # (Auto) 8.0 x10^3uL (1.8-7.7) Lymphocytes # (Auto) 1.0 x10^3/uL (1.0-4.8) Monocytes # (Auto) 0.7 x10^3/uL (0.0-1.1) Eosinophils # (Auto) 0.1 x10^3/uL (0.0-0.7) Basophils # (Auto) 0.1 x10^3/uL (0.0-0.2) Sodium Level 143 mmol/L (136-145) Potassium Level 3.7 mmol/L (3.5-5.1) Chloride Level 108 mmol/L (98-107) Carbon Dioxide Level 30 mmol/L (21-32) Anion Gap 5 (6-14) Blood Urea Nitrogen 22 mg/dL (7-20) Creatinine 1.8 mg/dL (0.6-1.0) Estimated GFR (Cockcroft-Gault) 26.8 BUN/Creatinine Ratio 12 (6-20) Glucose Level 125 mg/dL (70-99) Calcium Level 8.1 mg/dL (8.5-10.1) Total Bilirubin 0.4 mg/dL (0.2-1.0) Aspartate Amino Transf (AST/SGOT) 13 U/L (15-37) Alanine Aminotransferase (ALT/SGPT) 18 U/L (14-59) Alkaline Phosphatase 102 U/L (46-116) Total Protein 6.1 g/dL (6.4-8.2) Albumin 2.7 g/dL (3.4-5.0) Albumin/Globulin Ratio 0.8 (1.0-1.7) Medications Active Scripts Medications Dose Route/Sig Max Daily Dose Days Date Category Dose Instructions Furosemide 40 Mg Tablet 40 Mg PO DAILY 30 01/13/18 Rx Losartan Potassium 100 Mg Tablet 100 Mg PO DAILY 01/06/18 Reported Polysporin Topical Oint (Bacitracin/Polymyxin B Sulfate) 28.3 Gm Oint...g. 1 Keke TP BID 09/19/17 Reported DIRECTED BY PHYSICIAN Potassium Chloride 10 Meq Capsule.er 20 Meq PO DAILY 14 09/19/17 Rx Aspirin 325 Mg Tablet 325 Mg PO DAILY 09/16/17 Reported Cholestyramine Packet (Cholestyramine (With Sugar)) 4 Gm Powd.pack 2 Gm PO DAILY 09/16/17 Reported Donepezil Hcl 10 Mg Tablet 10 Mg PO DAILY 09/16/17 Reported Risperidone 0.5 Mg Tablet 1 Tab PO DAILY 09/16/17 Reported Carvedilol 12.5 Mg Tablet 12.5 Mg PO BIDWMEALS 09/16/17 Reported Pravastatin Sodium 20 Mg Tablet 20 Mg PO QHS 09/16/17 Reported Amlodipine Besylate 2.5 Mg Tablet 2.5 Mg PO DAILY 09/16/17 Reported Impression . 1. Acute hypoxic respiratory failure secondary to recurrent right-sided pleural effusion. 2. Abnormal chest x-ray with recurrent right-sided pleural effusion. She had prior thoracentesis in January and it was a transudate. Her etiology of effusion is related to diastolic heart failure. Her previous cardiac catheterization had shown elevated left ventricular end-diastolic pressure of 22. 3. No significant history of tobacco use. 4. Renal insufficiency. 5. Increased troponin level could be non-ST AL. Plan . 1. From a pulmonary standpoint,she feels better after thoracentesis. small residual right pleural effusion on f/u cxr 2. Diuresis 3. Continue present oxygen. 4. Antibiotics can be discontinued in the next 24 hours if effusion transudate 5. Follow cardiology recommendation. HILARY MARTIN MD Jun 11, 2018 13:41
--- NOTE | 2018-06-11 13:53 | RAD ---
Single view of the chest. 06/11/2018 1:07 PM Indication: INPATIENT. POST THORACENTHESIS RIGHT SIDE. PRIOR XRAYS. Comparison: CT chest, yesterday Findings: No pneumothorax is identified. Small bilateral pleural effusions with underlying atelectasis or infiltrate persist. Mild central vascular congestion cardiomegaly persists. No acute osseous of normality is identified. IMPRESSION: 1. No pneumothorax 2. Small persistent bilateral pleural effusions with underlying atelectasis or infiltrate . 3. Cardiomegaly and central vascular congestion. Findings consistent with congestive failure Electronically signed by: Gino Jacques MD (06/11/2018 1:50 PM) [id number]
[2018-06-11] MEDS ORDERED: VANCOMYCIN 1.25 GM in IV NORMAL SALINE 250ML 250 ML IV SCH (19:00)
[2018-06-11] MEDS: ATORVASTATIN CALCIUM 10 MG TABLET. PO SCH (21:15)
[2018-06-11] MEDS: risperiDONE 0.25 MG TABLET. PO SCH (21:15)
[2018-06-12 02:38] VITALS: BP 141/49
[2018-06-12 07:00] VITALS: BP 142/59
[2018-06-12] MEDS: ASPIRIN ENTERIC COATED 81 MG TABLET.DR. PO SCH (09:00)
[2018-06-12] MEDS: CHOLESTYRAMINE/ASPARTAME 4 GM PACKET PO SCH (09:00)
[2018-06-12] MEDS: CARVEDILOL 12.5 MG TABLET. PO SCH (09:00)
[2018-06-12] MEDS: LACTOBACILLUS RHAMNOSUS GG 1 CAPSULE. PO SCH (09:00)
[2018-06-12] MEDS: LOSARTAN POTASSIUM 50 MG TABLET. PO SCH (09:01)
[2018-06-12] MEDS: POTASSIUM CHLORIDE 20 MEQ TABLET.ER. PO SCH (09:02)
[2018-06-12] MEDS: DONEPEZIL HCL 10 MG TABLET. PO SCH (09:02)
[2018-06-12] MEDS ORDERED: FURO-68 PO ×2 (09:38→09:43)
--- NOTE | 2018-06-12 09:42 | DISCH ---
DISCHARGE WITH HOME HEALTH DISCHARGE INFORMATION: Final Diagnosis: Problems Medical Problems: (1) Congestive heart failure Status: Acute (2) Pleural effusion Status: Acute Condition on Discharge: Stable CODE STATUS: Code Status: DNR/DNI HOME HEALTH: Face to Face: I certify this patient is under my care and that I, or a nurse practitioner or physician's library assistant working with me, had a face to face encounter that meets the physician face to face encounter requirements with this patient on []. Home Health Aide For: Self-care Pt Meets Homebound Status: Limited distance walking, Poor cognition POST DISCHARGE ORDERS: Activity Instructions for Disc: Activity as tolerated Weight Bearing Status after Di: As tolerated CHECKS AFTER DISCHARGE: Checks after discharge: Weigh Yourself Daily FOLLOW-UP: Follow up with: primary care 2 weeks TREATMENT/EQUIPMENT ORDERS: Adaptive Equipment Issued: None CERTIFICATION STATEMENT: Certification Statement: Certification Statement: Based on the above finding, I certify that this patient is confined to the home and needs intermittent fpc care, physical therapy and/or speech therapy, or continues to need occupational therapy.~ This patient is under my care, and I have initiated the establishment of the plan of care.~ This patient will be followed by myself or a community physician who will periodically review the plan of care. Home Meds Active Scripts Furosemide (LASIX) 40 Mg Tablet, 40 MG PO BID, #60 TAB 1 Refill Prov:JEROME ZURITA MD 06/12/18 Furosemide (FUROSEMIDE) 40 Mg Tablet, 40 MG PO DAILY for 30 Days, #30 TAB Prov:OTONIEL MENDOZA MD 01/13/18 Potassium Chloride (Potassium Chloride) 10 Meq Capsule.er, 20 MEQ PO DAILY for 14 Days, #28 CAP.SR Prov:PIPO HENSON MD 09/19/17 Reported Medications Losartan Potassium (LOSARTAN POTASSIUM) 100 Mg Tablet, 100 MG PO DAILY, TAB 01/06/18 Bacitracin/Polymyxin B Sulfate (POLYSPORIN TOPICAL OINT) 28.3 Gm Oint...g., 1 YVETTE TP BID for WOUND CARE, #1 TUBE DIRECTED BY PHYSICIAN 09/19/17 Aspirin (ASPIRIN) 325 Mg Tablet, 325 MG PO DAILY, TAB 09/16/17 Cholestyramine (With Sugar) (CHOLESTYRAMINE PACKET) 4 Gm Powd.pack, 2 GM PO DAILY, PKT 09/16/17 Donepezil Hcl (DONEPEZIL HCL) 10 Mg Tablet, 10 MG PO DAILY, TAB 09/16/17 Risperidone (RISPERIDONE) 0.5 Mg Tablet, 1 TAB PO DAILY, TAB 09/16/17 Carvedilol (CARVEDILOL) 12.5 Mg Tablet, 12.5 MG PO BIDWMEALS, TAB 09/16/17 Pravastatin Sodium (PRAVASTATIN SODIUM) 20 Mg Tablet, 20 MG PO QHS, TAB 09/16/17 Amlodipine Besylate (AMLODIPINE BESYLATE) 2.5 Mg Tablet, 2.5 MG PO DAILY, TAB 09/16/17 JEROME ZURITA MD Jun 12, 2018 09:42
--- NOTE | 2018-06-12 09:43 | RAD ---
Portable chest, 06/12/2018: HISTORY: Congestive heart failure Comparison is made to yesterday's study at 1:07 PM. The heart is enlarged. There are moderate ongoing bibasilar opacities compatible with pleural fluid and underlying infiltrate and atelectasis. Allowing for differences in patient positioning these findings appear unchanged and are again most likely due to congestive heart failure. There is no evidence of pneumothorax. No new abnormality is detected. IMPRESSION: No significant change since yesterday's study. Electronically signed by: Domingo Marti MD (06/12/2018 9:40 AM) [facility]
[2018-06-12] MEDS ORDERED: POTA20TA82 PO (09:52)
[2018-06-12 10:22] LABS: CALCIUM 8.4 mg/dL (8.5-10.1); CREATININE 1.4 mg/dL (0.6-1.0); GFR 35.8; MAGNESIUM 1.8 mg/dL (1.8-2.4); POTASSIUM 4.1 mmol/L (3.5-5.1)
[2018-06-12 11:00] VITALS: BP 126/57
--- NOTE | 2018-06-12 11:09 | PDOC ---
PULMONARY PROGRESS NOTES Subjective feels better after thoracentesis. 1.2 litres removed 06/10 Vitals Vital Signs Date Time Temp Pulse Resp B/P (MAP) Pulse Ox O2 Delivery O2 Flow Rate FiO2 06/12/18 09:01 88 141/49 06/12/18 07:00 97.8 18 94 Nasal Cannula 2.0 97.8 ROS: No Chest Pain General: Alert, No acute distress Lungs: Other (decrease bases) Cardiovascular: S1, S2 Abdomen: Soft Neuro Exam: Alert Extremities: Other (1+edema) Labs Laboratory Tests Test 06/11/18 06:27 06/11/18 06:29 06/12/18 09:45 Iron Level 14 ug/dL (50-170) Total Iron Binding Capacity 393 ug/dL (250-450) Iron Saturation 4 % (15-34) White Blood Count 10.0 x10^3/uL (4.0-11.0) Red Blood Count 3.68 x10^6/uL (3.50-5.40) Hemoglobin 9.0 g/dL (12.0-15.5) Hematocrit 28.5 % (36.0-47.0) Mean Corpuscular Volume 77 fL (79-100) Mean Corpuscular Hemoglobin 25 pg (25-35) Mean Corpuscular Hemoglobin Concent 32 g/dL (31-37) Red Cell Distribution Width 18.7 % (11.5-14.5) Platelet Count 212 x10^3/uL (140-400) Neutrophils (%) (Auto) 81 % (31-73) Lymphocytes (%) (Auto) 10 % (24-48) Monocytes (%) (Auto) 7 % (0-9) Eosinophils (%) (Auto) 1 % (0-3) Basophils (%) (Auto) 1 % (0-3) Neutrophils # (Auto) 8.0 x10^3uL (1.8-7.7) Lymphocytes # (Auto) 1.0 x10^3/uL (1.0-4.8) Monocytes # (Auto) 0.7 x10^3/uL (0.0-1.1) Eosinophils # (Auto) 0.1 x10^3/uL (0.0-0.7) Basophils # (Auto) 0.1 x10^3/uL (0.0-0.2) Sodium Level 143 mmol/L (136-145) 144 mmol/L (136-145) Potassium Level 3.7 mmol/L (3.5-5.1) 4.1 mmol/L (3.5-5.1) Chloride Level 108 mmol/L (98-107) 106 mmol/L (98-107) Carbon Dioxide Level 30 mmol/L (21-32) 31 mmol/L (21-32) Anion Gap 5 (6-14) 7 (6-14) Blood Urea Nitrogen 22 mg/dL (7-20) 22 mg/dL (7-20) Creatinine 1.8 mg/dL (0.6-1.0) 1.4 mg/dL (0.6-1.0) Estimated GFR (Cockcroft-Gault) 26.8 35.8 BUN/Creatinine Ratio 12 (6-20) Glucose Level 125 mg/dL (70-99) 220 mg/dL (70-99) Calcium Level 8.1 mg/dL (8.5-10.1) 8.4 mg/dL (8.5-10.1) Total Bilirubin 0.4 mg/dL (0.2-1.0) Aspartate Amino Transf (AST/SGOT) 13 U/L (15-37) Alanine Aminotransferase (ALT/SGPT) 18 U/L (14-59) Alkaline Phosphatase 102 U/L (46-116) Total Protein 6.1 g/dL (6.4-8.2) Albumin 2.7 g/dL (3.4-5.0) Albumin/Globulin Ratio 0.8 (1.0-1.7) Magnesium Level 1.8 mg/dL (1.8-2.4) Laboratory Tests Test 06/12/18 09:45 Sodium Level 144 mmol/L (136-145) Potassium Level 4.1 mmol/L (3.5-5.1) Chloride Level 106 mmol/L (98-107) Carbon Dioxide Level 31 mmol/L (21-32) Anion Gap 7 (6-14) Blood Urea Nitrogen 22 mg/dL (7-20) Creatinine 1.4 mg/dL (0.6-1.0) Estimated GFR (Cockcroft-Gault) 35.8 Glucose Level 220 mg/dL (70-99) Calcium Level 8.4 mg/dL (8.5-10.1) Magnesium Level 1.8 mg/dL (1.8-2.4) Medications Active Scripts Medications Dose Route/Sig Max Daily Dose Days Date Category Dose Instructions Furosemide 40 Mg Tablet 40 Mg PO DAILY 30 01/13/18 Rx Losartan Potassium 100 Mg Tablet 100 Mg PO DAILY 01/06/18 Reported Polysporin Topical Oint (Bacitracin/Polymyxin B Sulfate) 28.3 Gm Oint...g. 1 Keke TP BID 09/19/17 Reported DIRECTED BY PHYSICIAN Potassium Chloride 10 Meq Capsule.er 20 Meq PO DAILY 14 09/19/17 Rx Aspirin 325 Mg Tablet 325 Mg PO DAILY 09/16/17 Reported Cholestyramine Packet (Cholestyramine (With Sugar)) 4 Gm Powd.pack 2 Gm PO DAILY 09/16/17 Reported Donepezil Hcl 10 Mg Tablet 10 Mg PO DAILY 09/16/17 Reported Risperidone 0.5 Mg Tablet 1 Tab PO DAILY 09/16/17 Reported Carvedilol 12.5 Mg Tablet 12.5 Mg PO BIDWMEALS 09/16/17 Reported Pravastatin Sodium 20 Mg Tablet 20 Mg PO QHS 09/16/17 Reported Amlodipine Besylate 2.5 Mg Tablet 2.5 Mg PO DAILY 09/16/17 Reported Impression . 1. Acute hypoxic respiratory failure secondary to recurrent right-sided pleural effusion. 2. Abnormal chest x-ray with recurrent right-sided pleural effusion. She had prior thoracentesis in January and it was a transudate. Her etiology of effusion is related to diastolic heart failure. Her previous cardiac catheterization had shown elevated left ventricular end-diastolic pressure of 22. 3. No significant history of tobacco use. 4. Renal insufficiency. 5. Increased troponin level could be non-ST [place]. Plan . 1. From a pulmonary standpoint,she feels better after thoracentesis. small residual right pleural effusion on f/u cxr 2. Diuresis 3. Continue present oxygen. 4. Antibiotics discontinued 5. Follow cardiology recommendation. ok with [facility] HILARY MARTIN MD Jun 12, 2018 11:09
--- NOTE | 2018-06-12 12:01 | PDOC ---
SUBJECTIVE ROS No new concerns OBJECTIVE Vital Signs Vital Signs Date Time Temp Pulse Resp B/P (MAP) Pulse Ox O2 Delivery O2 Flow Rate FiO2 06/12/18 09:01 88 141/49 06/12/18 07:00 97.8 18 94 Nasal Cannula 2.0 97.8 I & 0 Intake and Output 06/12/18 07:00 Intake Total 1950 ml Output Total 1700 ml Balance 250 ml Intake Oral 1950 ml Output Urine Total 300 ml Urine/Stool Mix 200 ml Other 1200 ml # Voids 5 # Bowel Movements 4 PHYSICAL EXAM Physical Exam General: NAD HEENT: OM Lungs: CTA ant , non labored Heart: Regular rate Abdomen: Soft, No tenderness Extremities: trace to 1+ bilateral LE pitting edema) Skin: No rash Neuro: AXO - no henry, No CVA or SP tenderness DIAGNOSIS/ASSESSMENT Assessment & Plan MIQUEL on CKD- Likely cardiorenal Renal function improving E-Lytes and acid base stable,Good uop CKD stage 3- baseline Creat 1.3-1.4 Recurrent pleural effusion- S/P Thoracentesis this am -1.2 L of pleural fluid was aspirated. Pul following CT- Increasing large right pleural effusion and moderate size left pleural effusion CAD; nonobstructive with recent LHC in january. Acute on chronic diastolic CHF: multifactorial including uncontrolled HTN EF Dementia/Debility//deconditioning If Dc home, follow with Renal in 3-4 Months as OP DW and RN COMMENT/RELEVANT DATA Meds Current Medications Medications (Trade) Dose Ordered Sig/Kerrie Start Time Stop Time Status Last Admin Dose Admin Acetaminophen (Tylenol) 650 mg PRN Q4HRS PRN 06/09/18 17:30 06/10/18 17:29 DC Aspirin (Ecotrin) 81 mg DAILYWBKFT 06/10/18 11:30 06/12/18 09:00 81 MG Atorvastatin Calcium (Lipitor) 5 mg QHS 06/10/18 21:00 06/11/18 21:15 5 MG Carvedilol (Coreg) 12.5 mg BIDWMEALS 06/10/18 10:30 06/12/18 09:00 12.5 MG Cholestyramine Resin (Questran Light) 2 gm Q24H 06/10/18 13:00 06/12/18 09:00 2 GM Donepezil HCl (Aricept) 10 mg DAILY 06/10/18 10:30 06/12/18 09:02 10 MG Furosemide (Lasix) 20 mg 1X ONCE 06/09/18 19:00 06/09/18 19:01 UNV Iron Sucrose 200 mg/Sodium Chloride 110 ml @ 55 mls/hr 1X ONCE 06/11/18 12:30 06/11/18 14:29 DC 06/11/18 13:37 55 MLS/HR Labetalol HCl (Normodyne Iv Push) 20 mg PRN Q2HR PRN 06/10/18 11:00 Lactobacillus Rhamnosus (Culturelle) 1 cap BID 06/11/18 09:00 06/12/18 09:00 1 CAP Losartan Potassium (Cozaar) 50 mg DAILY 06/10/18 11:00 06/12/18 09:01 50 MG Nitroglycerin (Nitro-Bid Oint) 1 inch 1X ONCE 06/09/18 16:30 06/09/18 16:32 DC 06/09/18 17:37 1 INCH Ondansetron HCl (Zofran) 4 mg PRN Q8HRS PRN 06/09/18 17:30 06/10/18 17:29 DC Piperacillin Sod/ Tazobactam Sod (Zosyn Per Pharmacy) 1 each PRN DAILY PRN 06/09/18 17:30 06/11/18 13:02 DC Piperacillin Sod/ Tazobactam Sod 2.25 gm/Sodium Chloride 50 ml @ 100 mls/hr Q6HRS 06/10/18 00:00 06/11/18 12:21 DC 06/11/18 05:57 100 MLS/HR Piperacillin Sod/ Tazobactam Sod 3.375 gm/Sodium Chloride 50 ml @ 100 mls/hr 1X ONCE 06/09/18 18:00 06/09/18 18:29 DC 06/09/18 17:44 100 MLS/HR Potassium Chloride (Klor-Con) 20 meq DAILYWBKFT 06/10/18 10:30 06/12/18 09:02 20 MEQ Risperidone (RisperDAL) 0.5 mg HS 06/10/18 21:00 06/11/18 21:15 0.5 MG Vancomycin HCl (Vanco Per Pharmacy) 1 each PRN DAILY PRN 06/09/18 17:30 06/11/18 12:22 DC 06/11/18 09:29 1 EACH Vancomycin HCl 1.25 gm/Sodium Chloride 250 ml @ 167 mls/hr Q48H 06/11/18 19:00 06/11/18 19:00 DC Vancomycin HCl 2 gm/Sodium Chloride 500 ml @ 250 mls/hr 1X ONCE 06/09/18 18:30 06/09/18 20:29 DC 06/09/18 19:03 250 MLS/HR Lab Laboratory Tests Test 06/12/18 09:45 Sodium Level 144 mmol/L (136-145) Potassium Level 4.1 mmol/L (3.5-5.1) Chloride Level 106 mmol/L (98-107) Carbon Dioxide Level 31 mmol/L (21-32) Anion Gap 7 (6-14) Blood Urea Nitrogen 22 mg/dL (7-20) Creatinine 1.4 mg/dL (0.6-1.0) Estimated GFR (Cockcroft-Gault) 35.8 Glucose Level 220 mg/dL (70-99) Calcium Level 8.4 mg/dL (8.5-10.1) Magnesium Level 1.8 mg/dL (1.8-2.4) Results All relevant outside records, renal labs, imaging studies, telemetry/EKG's were reviewed. VASYL RAHMAN MD Jun 12, 2018 12:01
[2018-06-12] MEDS ORDERED: FUROSEMIDE 40 MG/4 ML VIAL. IVP ONE (12:30)
--- NOTE | 2018-06-12 14:31 | PDOC ---
CARDIO Progress Notes Date and Time Date of Service 06/12/2018 Time of Evaluation 1000 Subjective Subjective: No Chest Pain, No shortness of breath, No Palpitations, Other ( sitting up, comfortable) Vitals Vitals Vital Signs Date Time Temp Pulse Resp B/P (MAP) Pulse Ox O2 Delivery O2 Flow Rate FiO2 06/12/18 09:01 88 141/49 06/12/18 07:00 97.8 18 94 Nasal Cannula 2.0 97.8 Weight Weight [ ] Input and Output Intake and Output Intake and Output 06/12/18 07:00 Intake Total 1950 ml Output Total 1700 ml Balance 250 ml Intake Oral 1950 ml Output Urine Total 300 ml Urine/Stool Mix 200 ml Other 1200 ml # Voids 5 # Bowel Movements 4 Laboratory Labs Laboratory Tests Test 06/12/18 09:45 Sodium Level 144 mmol/L (136-145) Potassium Level 4.1 mmol/L (3.5-5.1) Chloride Level 106 mmol/L (98-107) Carbon Dioxide Level 31 mmol/L (21-32) Anion Gap 7 (6-14) Blood Urea Nitrogen 22 mg/dL (7-20) Creatinine 1.4 mg/dL (0.6-1.0) Estimated GFR (Cockcroft-Gault) 35.8 Glucose Level 220 mg/dL (70-99) Calcium Level 8.4 mg/dL (8.5-10.1) Magnesium Level 1.8 mg/dL (1.8-2.4) Physical Exam HEENT: Neck Supple W Full Motion Chest: Symmetric LUNGS: Other (basilar crackles) Heart: RRR (SR) Abdomen: Soft N/T Extremities: No Calf Tenderness, Other (1+ bilateral LE pitting edema) Neurology: alert, oriented, follow commands Assessment Assessment 1. Recurrent pleural effusion: pulmonary following. S/P right thoracentesis 1.2L off. 2. CAD; nonobstructive with recent LHC 3. Acute on chronic diastolic CHF: compensated 4. MIQUEL on CKD3: back to her baseline 5. Mildly elevated troponin: peaked at 0.07, Type 2 demand mediated 6. HTN: controlled 7. HLP 8. Dementia/Debility/WC bound/deconditioning 9. Moderate pulmonary HTN Recommendations 1. Continue [facility] BP regimen. Parameters, daily wt and home BP monitoring discussed with staff to relay to spouse and pt. 2. Continue with lasix therapy. Discussed with staff to not give questran close to rest of her meds to avoid chelation 3. Continue with secondary prevention. 4. Follow up at CHF clinic in 1-2 weeks with BMP prior to visit. KIERA HCI APRN Jun 12, 2018 14:31
--- NOTE | 2018-06-12 14:38 | PDOC3 ---
Discharge Summary Visit Information Date of Admission: Jun 09, 2018 Date of Discharge: Jun 12, 2018 Admitting Diagnosis: hypoxia Final Diagnosis 1. Acute hypoxic respiratory failure 2. Right-sided pleural effusion w. prior thoracentesis in January and it was a transudate. 3. acute on chronic diastolic CHF 4. CKD 3 . 5. dementia, progressive alzheimrs Problems Medical Problems: (1) Congestive heart failure Status: Acute (2) Pleural effusion Status: Acute Brief Hospital Course Allergies Allergies Coded Allergies Type Severity Reaction Last Updated Verified No Known Drug Allergies 09/16/17 No Vital Signs Vital Signs Date Time Temp Pulse Resp B/P (MAP) Pulse Ox O2 Delivery O2 Flow Rate FiO2 06/12/18 09:01 88 141/49 06/12/18 07:00 97.8 18 94 Nasal Cannula 2.0 97.8 Lab Results Laboratory Tests Test 06/11/18 06:27 06/11/18 06:29 06/11/18 07:55 06/12/18 09:45 Iron Level 14 ug/dL (50-170) Total Iron Binding Capacity 393 ug/dL (250-450) Iron Saturation 4 % (15-34) White Blood Count 10.0 x10^3/uL (4.0-11.0) Red Blood Count 3.68 x10^6/uL (3.50-5.40) Hemoglobin 9.0 g/dL (12.0-15.5) Hematocrit 28.5 % (36.0-47.0) Mean Corpuscular Volume 77 fL (79-100) Mean Corpuscular Hemoglobin 25 pg (25-35) Mean Corpuscular Hemoglobin Concent 32 g/dL (31-37) Red Cell Distribution Width 18.7 % (11.5-14.5) Platelet Count 212 x10^3/uL (140-400) Neutrophils (%) (Auto) 81 % (31-73) Lymphocytes (%) (Auto) 10 % (24-48) Monocytes (%) (Auto) 7 % (0-9) Eosinophils (%) (Auto) 1 % (0-3) Basophils (%) (Auto) 1 % (0-3) Neutrophils # (Auto) 8.0 x10^3uL (1.8-7.7) Lymphocytes # (Auto) 1.0 x10^3/uL (1.0-4.8) Monocytes # (Auto) 0.7 x10^3/uL (0.0-1.1) Eosinophils # (Auto) 0.1 x10^3/uL (0.0-0.7) Basophils # (Auto) 0.1 x10^3/uL (0.0-0.2) Sodium Level 143 mmol/L (136-145) 144 mmol/L (136-145) Potassium Level 3.7 mmol/L (3.5-5.1) 4.1 mmol/L (3.5-5.1) Chloride Level 108 mmol/L (98-107) 106 mmol/L (98-107) Carbon Dioxide Level 30 mmol/L (21-32) 31 mmol/L (21-32) Anion Gap 5 (6-14) 7 (6-14) Blood Urea Nitrogen 22 mg/dL (7-20) 22 mg/dL (7-20) Creatinine 1.8 mg/dL (0.6-1.0) 1.4 mg/dL (0.6-1.0) Estimated GFR (Cockcroft-Gault) 26.8 35.8 BUN/Creatinine Ratio 12 (6-20) Glucose Level 125 mg/dL (70-99) 220 mg/dL (70-99) Calcium Level 8.1 mg/dL (8.5-10.1) 8.4 mg/dL (8.5-10.1) Total Bilirubin 0.4 mg/dL (0.2-1.0) Aspartate Amino Transf (AST/SGOT) 13 U/L (15-37) Alanine Aminotransferase (ALT/SGPT) 18 U/L (14-59) Alkaline Phosphatase 102 U/L (46-116) Total Protein 6.1 g/dL (6.4-8.2) Albumin 2.7 g/dL (3.4-5.0) Albumin/Globulin Ratio 0.8 (1.0-1.7) Body Fluid Total Protein 2.4 g/dL (.) Body Fluid Lactate Dehydrogenase 85 IU/L (.) Magnesium Level 1.8 mg/dL (1.8-2.4) Laboratory Tests Test 06/12/18 09:45 Sodium Level 144 mmol/L (136-145) Potassium Level 4.1 mmol/L (3.5-5.1) Chloride Level 106 mmol/L (98-107) Carbon Dioxide Level 31 mmol/L (21-32) Anion Gap 7 (6-14) Blood Urea Nitrogen 22 mg/dL (7-20) Creatinine 1.4 mg/dL (0.6-1.0) Estimated GFR (Cockcroft-Gault) 35.8 Glucose Level 220 mg/dL (70-99) Calcium Level 8.4 mg/dL (8.5-10.1) Magnesium Level 1.8 mg/dL (1.8-2.4) Brief Hospital Course Ms. Hand is a 83 old admit with new hypxia large pleural effusion 1.2 liters thoracenteis taken 06/11 she felt improved LAsix doubled for DC CHF is prominent dementia OK , home health, cares for her well Discharge Information Condition at Discharge: Improved Follow Up: Weeks Disposition/Orders: D/C to Home w/ HH Scheduled Amlodipine Besylate (Amlodipine Besylate) 2.5 Mg Tablet, 2.5 MG PO DAILY, ( Reported) Entered as Reported by: Whitley Cordon on 09/16/171650 Aspirin (Aspirin) 325 Mg Tablet, 325 MG PO DAILY, (Reported) Entered as Reported by: Whitley Cordon on 09/16/17 1727 Bacitracin/Polymyxin B Sulfate (Polysporin Topical Oint) 28.3 Gm Oint...g., 1 YVETTE TP BID for WOUND CARE, #1 (Reported) DIRECTED BY PHYSICIAN Entered as Reported by: Forrest Culp on 09/19/17 1355 Carvedilol (Carvedilol) 12.5 Mg Tablet, 12.5 MG PO BIDWMEALS, (Reported) Entered as Reported by: Whitley Cordon on 09/16/171650 Last Action: Continued on 06/10/18950 by TANI ADAM Cholestyramine (With Sugar) (Cholestyramine Packet) 4 Gm Powd.pack, 2 GM PO DAILY, (Reported) Entered as Reported by: Whitley Cordon on 09/16/171650 Last Action: Converted on 06/10/18950 by TANI ADAM Donepezil Hcl (Donepezil Hcl) 10 Mg Tablet, 10 MG PO DAILY, (Reported) Entered as Reported by: Whitlye Cordon on 09/16/171650 Last Action: Converted on 06/10/18950 by TANI ADAM Furosemide (Lasix) 40 Mg Tablet, 40 MG PO BID, #180 Ref 1 Prescribed by: JEROME ZURITA on 06/12/18 0943 Losartan Potassium (Losartan Potassium) 100 Mg Tablet, 100 MG PO DAILY, ( Reported) Entered as Reported by: Femi Holt on 01/06/182041 Last Action: Converted on 06/10/18 104 by TANI ADAM Potassium Chloride (Potassium Chloride) 10 Meq Capsule.er, 20 MEQ PO DAILY for 14 Days, #28 Prescribed by: PIPO HENSON on 09/19/17 1111 Last Action: Converted on 06/10/18950 by TANI ADAM Potassium Chloride (Potassium Chloride) 20 Meq Tablet.er, 20 MEQ PO DAILY, #90 Ref 1 Prescribed by: JEROME ZURITA on 06/12/18 0952 Pravastatin Sodium (Pravastatin Sodium) 20 Mg Tablet, 20 MG PO QHS, (Reported) Entered as Reported by: Whitley Cordon on 09/16/171650 Last Action: Converted on 06/10/18950 by TANI ADAM Risperidone (Risperidone) 0.5 Mg Tablet, 1 TAB PO DAILY, (Reported) Entered as Reported by: Whitley Cordon on 09/16/171650 Last Action: Converted on 06/10/18950 by TANI ADAM Discontinued Medications Furosemide (Furosemide) 40 Mg Tablet, 40 MG PO DAILY for 30 Days, #30 Prescribed by: OTONIEL MENDOZA MD on 01/13/18 1151 Last Action: Reviewed on 06/09/182239 by BENITA BORREGO Patient Instructions Patient Instructions > 30 min face to face JEROME ZURITA MD Jun 12, 2018 14:38
--- NOTE | 2018-06-12 15:10 | PATHOLOGY ---
Note [facility] Accession Number: [id number] TESTS RESULT FLAG UNITS REF RANGE LAB Clinician Provided Cytology Information No. of containers..01 Other (Miscellaneous) Source: RT PLEURAL FLUID DIAGNOSIS: RT PLEURAL FLUID NEGATIVE FOR MALIGNANT CELLS. EXAM INCLUDES EVALUATION OF CELL BLOCK. Signed out by: Sunday New MD, Pathologist NPI- [id number] Performed by: Lydia Burnett, Registrar Assistant ([facility]) Gross description: 01 32ML, YELLOW, CLOUDY /LCS FLAG LEGEND: L-Low Normal,H-High Normal,LL-Alert Low,HH-Alert High <-Panic Low,>-Panic High,A-Abnormal,AA-Critical Abnormal Performed at: [address] [place] [address] René Qiu MD, [address] [facility] [address] [place] [address] Sunday New MD, A courtesy copy of this report has been sent to [phone]. Performed at: [address] [place] [address] [address], [place], [place] [id number] MD René Qiu MD Phone: [phone]
[2018-06-13] MEDS ORDERED: FUROSEMIDE 40 MG TABLET. PO SCH (09:00)
== END 2018-06-12 14:50 | disposition home health service (06) | DRG 291 ==
LOC: ER 15:25 → 2 SOUTH 17:30
PROVIDERS: ADMIT Family Medicine; ATTEND Family Medicine
PROC: 0W993ZZ Drainage of Right Pleural Cavity, Percutaneous Approach (ICD-10-PCS; principal; 2018-06-11)
DX: I13.0 Hypertensive heart and chronic kidney disease with heart failure and stage 1 through stage 4 chronic kidney disease, or unspecified chronic kidney disease (principal); J96.01 Acute respiratory failure with hypoxia; I50.33 Acute on chronic diastolic (congestive) heart failure; J90 Pleural effusion, not elsewhere classified; N17.9 Acute kidney failure, unspecified; J98.11 Atelectasis; E78.5 Hyperlipidemia, unspecified; F03.90 Unspecified dementia, unspecified severity, without behavioral disturbance, psychotic disturbance, mood disturbance, and anxiety; I25.10 Atherosclerotic heart disease of native coronary artery without angina pectoris; I27.20 Pulmonary hypertension, unspecified; K44.9 Diaphragmatic hernia without obstruction or gangrene; Z96.653 Presence of artificial knee joint, bilateral; F32.9 Major depressive disorder, single episode, unspecified; M19.90 Unspecified osteoarthritis, unspecified site; N18.3 Chronic kidney disease, stage 3 (moderate); Z82.49 Family history of ischemic heart disease and other diseases of the circulatory system; Z86.73 Personal history of transient ischemic attack (TIA), and cerebral infarction without residual deficits; Z90.49 Acquired absence of other specified parts of digestive tract; Z98.49 Cataract extraction status, unspecified eye; Z79.899 Other long term (current) drug therapy; Z99.3 Dependence on wheelchair
CPT/HCPCS: 32555; 36415; 71045; 71250; 80048; 80053; 80061; 80076; 83540; 83550; 83615; 83735; 83880; 84145; 84157; 84484; 85025; 85610; 85730; 87071; 87075; 88112; 88305; 93005; 93306; 94618; 96365; 96367; J1756; J1940; J2543; J3370; J7040; 97530; 99285-25